=== PATIENT | male | born 1970 | race Caucasian/White ===

== ENCOUNTER 2020-05-26 07:44 | Outpatient (CLI) | payer OTHER, SELFPAY ==
--- NOTE | 2020-05-30 03:17 | SLEEP_ITS ---
Home Sleep Test DATE OF STUDY: 05/26/2020 ORDERING PHYSICIAN: Sherley Jordan MD. REASON FOR THE STUDY: Obstructive sleep apnea syndrome. HISTORY: This patient is a 49-year-old man, who is tired, dizzy, has memory issues, extreme mood swings, and serious lack of motivation. He has diagnosis of obstructive sleep apnea, and he has been on CPAP in the past. He occasionally awakens from sleep feeling short of breath. He never awakens at night with heartburn, belching, or coughing. He frequently snores occasionally, it is loud enough that others complain about it. He frequently has trouble sleeping if he has a cold. He occasionally gasps for breath at night. He rarely has breathing problems at night witnessed by others. He frequently sweats excessively at night. He occasionally notices his heart pounding or beating irregularly at night. He occasionally falls asleep during the day. He never falls asleep involuntarily or while driving. He does not fall asleep during physical effort. He does not have loss of muscle tone with strong emotion. He rarely has daytime difficulty due to excessive sleepiness, but he does have mood problems and this impacts his day-to-day life. He does not feel paralyzed on waking or falling asleep. He occasionally has vivid dreamlike scenes upon awakening or falling asleep. He rarely is afraid to go to sleep. He occasionally has nightmares. He occasionally remembers his dreams. He frequently has racing thoughts, feelings of sadness, depression, and anxiety. He rarely has muscular tension. He occasionally notices parts of his body jerking and he occasionally kicks at night. He rarely has crawling and aching feelings in his legs. He rarely has leg pain during the night. He does not have morning jaw pain. He frequently grinds his teeth at night. He rarely is bothered by pain during the day, never is awakened by pain at night. He frequently wakes up feeling stiff in the morning, rarely with sore or achy muscles. He rarely wakes up with pain in the neck and spine. He has headaches, palpitations, dizziness, fatigue, panic, memory problems, concentration difficulties, depression. Normal bedtime is 11 p.m., falling asleep sometimes quickly in 5 minutes, other times taking up to 1 hour. He typically wakes up 3-5 times at night, staying awake between 2 minutes and 30 minutes. When he wakes, he will go to the bathroom, sometimes turn on the television if he cannot fall back asleep. He wakes in the morning at 6:30 to 7:00 a.m. Weekends, he may stay up until 1 a.m. and wake later sometime between 7 and 8 a.m. He does drink alcohol mainly on the weekends. He does take naps. A short nap is not refreshing. He is drowsy in the morning for 3 hours or longer. MEDICAL COMORBIDITIES: Stroke, hyperlipidemia, hypothyroidism, history of obstructive sleep apnea syndrome previously treated with CPAP, pulmonary embolism, tachycardia. MEDICATIONS: 1. Levothyroxine 175 mcg daily. 2. Aspirin 325 mg daily. HABITS: Never smoked tobacco. Caffeine 3-5 servings a day. Alcohol 3-8 servings only on the weekends. No recreational drugs. The patient quit using CPAP over a year ago. His symptoms worsened significantly and he decided he wanted to be treated again due to recurrence of symptoms including increased daytime sleepiness, fatigue, snoring, dry mouth, and nocturia, but he had to be retested because there had been a lapse in the use of CPAP, so we had to start from the beginning. DESCRIPTION OF THE STUDY: On the [place] Sleepiness Scale, his score is 8. This was conducted as an unattended type III portable home sleep test using 4-channel monitoring including respiratory effort channel, snoring channel, oxygen saturation channel, and
== END 2020-05-26 07:45 | disposition home or self-care (01) ==
LOC: ANHCSM 07:44
PROVIDERS: PCP Family Medicine; Visit Provider Internal Medicine Critical Care Medicine
DX: G47.33 Obstructive sleep apnea (adult) (pediatric) (principal)
CPT/HCPCS: 95806

== ENCOUNTER 2020-07-31 20:39 | Inpatient (IN) | payer OTHER, SELFPAY ==
--- NOTE | ~2020-07-31 | US_ITS ---
EXAMINATION: US right upper quadrant EXAM DATE: 08/01/2020 11:17 INDICATION: Elevated liver enzymes. TECHNIQUE: Multiple grayscale and Doppler images of the abdomen right upper quadrant were obtained (tom y a technologist who performed the scan) and subsequently reviewed. There is no prior study for rosie burnett. FINDINGS: The pancreatic head and body are normal in appearance. The pancreatic tail is not visualized. The l iver has normal echogenicity and contour. There are no focal liver lesions identified. There is no evidence of intrahepatic biliary duct dilation. Portal venous flow was seen in the hepatopedal, nor mal direction and has normal Doppler waveform. No right-sided hydronephrosis. Common bile duct measures 3 mm, which is normal. The gallbladder wall is normal in thickness, with ex pected amount of distention. No sonographic evidence of pericholecystic fluid. There is no cholelit hiases. Technologist performing exam reports patient did not demonstrate sonographic Barrientos's sign. Please note that this sign is less reliable in patients who have received pain medication. IMPRESSION: 1. Unremarkable abdominal ultrasound exam. Reviewed, dictated and finalized at location A. RDS MANAGER
--- NOTE | ~2020-07-31 | US_ITS ---
EXAMINATION: US carotid duplex BI EXAM DATE: 08/01/2020 11:16 INDICATION: Stroke, vertigo. TECHNIQUE: Grayscale, color and pulsed Doppler images of the cervical carotid arteries were obtained . The degree of vessel stenosis is placed in one of the following categories: normal, <50% stenosis, 50-69% stenosis, >=70% stenosis but less than near-occlusion, near-occlusion, or occlusion. Note that percent stenosis relative to normal distal artery lumen diameter is indirectly measured from velocit y measurements as described by Kaz, et al. Radiology 2003; 229:340-346. Comparison is made to prior examination from 07/03/2019. FINDINGS: RIGHT SIDE: Right common carotid artery peak systolic velocity (PSV in cm/s): 83 Right bulb/internal carotid artery peak systolic velocity (PSV in cm/s): 74 Right internal carotid artery end diastolic velocity (EDV in cm/s): 37 Right ICA/CCA peak systolic ratio: 0.9 Right external carotid artery peak systolic velocity (PSV in cm/s): 113 Right vertebral artery antegrade flow: yes There is no focal plaque identified. LEFT SIDE: Left common carotid artery peak systolic velocity (PSV in cm/s): 122 Left bulb/internal carotid artery peak systolic velocity (PSV in cm/s): 104 Left internal carotid artery end diastolic velocity (EDV in cm/s): 0.9 Left ICA/CCA peak systolic ratio: 112 Left external carotid artery peak systolic velocity (PSV in cm/s): 46 Left vertebral artery antegrade flow: yes There is no focal plaque identified. IMPRESSION: 1. Normal right internal carotid artery. 2. Normal left internal carotid artery. Reviewed, dictated and finalized at location A. ITECTURE DEPARTMENT CHAIR
--- NOTE | ~2020-07-31 | CT_ITS ---
EXAMINATION: CT cervical spine wo con DATE: 07/31/2020 21:31 INDICATION: Weakness post fall TECHNIQUE: Computed tomography (CT) of the cervical spine was performed without intravenous contrast. Automated exposure control and iterative reconstruction technique were employed. The dose-length pro duct was 592.25 mGy-cm. COMPARISON: None FINDINGS: Straightening of the normal cervical lordosis. Vertebral body heights are normal. No fracture. Disc h eights are normal. Minimal to mild uncovertebral osteoarthritis throughout the cervical spine most pr ominent at C3-C4. Mild bilateral facet osteoarthritis at C2-C3 with minimal facet osteoarthritis in t he more caudal cervical and upper thoracic spine. No central canal or neural foraminal stenosis. Cerv ical soft tissues are unremarkable. Visualized airway and apices of the lungs are clear. IMPRESSION: 1. Minimal cervical spondylosis. No acute osseous abnormality. Reviewed, dictated and finalized at [facility]. NEL ACCOUNT MANAGER
--- NOTE | ~2020-07-31 | MR_ITS ---
EXAMINATION: MR brain/brain stem wo/w con EXAM DATE: 08/01/2020 10:38 INDICATION: Upper extremity weakness. Stroke. Fall and memory loss. TECHNIQUE: Magnetic resonance imaging (MRI) of the brain/brain stem obtained without contrast. Sagit maureen T1, axial diffusion, gradient echo (T2*), T1, T2, FLAIR sequences obtained. Patient was then inj ected with 20 cc intravenous Multihance contrast. Axial and coronal postcontrast T1 weighted sequence s obtained. Comparison is made to prior examination from 06/28/2019. FINDINGS: There is punctate old left cerebellar infarction. There are no areas of restricted diffusio n to suggest acute infarction. Vague mild periventricular T2 hyperintensity most likely mild microang iopathy, with some dilated perivascular spaces unchanged There is no acute hemorrhage seen on the T2* , a hemosiderin sensitive sequence. No intraparenchymal brain mass. The ventricles are normal in siz e. There are no extra-axial collections. Flow voids are seen in the cerebral arteries on the T2-betsy ghted sequences consistent with their expected patency. The orbits are unremarkable. Soft tissue is unremarkable. IMPRESSION: 1. No acute intracranial findings. 2. Punctate old left cerebellar infarction. Reviewed, dictated and finalized at location A. RACT RECRUITER
--- NOTE | ~2020-07-31 | CT_ITS ---
EXAMINATION: CT brain wo con DATE: 07/31/2020 21:31 INDICATION: Memory loss post fall with head trauma. TECHNIQUE: Computed tomography (CT) of the head was performed without intravenous contrast. Sagittal and coronal reconstructions were performed. The mA was adjusted according to patient size. Iterative reconstruction technique was employed. The dose-length product was 681.00 mGy-cm. COMPARISON: head CT dated 02/06/2019 and brain MR dated 06/28/2019 FINDINGS: No fracture. Small old left cerebellar infarct. No acute intracranial hemorrhage, acute infarction or abnormal extra axial fluid collection. Ventricles are normal and symmetric. No mass/mass effect. Sma ll amount of bubbly mucus in the right sphenoid sinus. The orbits and mastoid air cells are normal. IMPRESSION: 1. No fracture or acute intracranial process. 2. Small lacunar infarct at the left cerebellum. Reviewed, dictated and finalized at [facility]. ECT ENGINEERING MANAGER
[2020-07-31 20:44] VITALS: BP 129/65; PULSE 104; RESP 18; TEMP 36.6; O2SAT 100
[2020-07-31 21:21] LABS: Basophils Absolute Auto 0.1 K/mm3 (0.0-0.1); Eosinophils Absolute Auto 0.3 K/mm3 (0-0.3); Eosinophils Percent Auto 2.7 % (0-4.4); Hematocrit 42.5 % (42.0-52.0); Hemoglobin 15.3 g/dL (14.0-18.0); Immature Granulocyte Absolute 0.14 K/mm3 (0.00-0.031); Immature Granulocyte Percent A 1.3 % (0-0.5); Lymphocytes Absolute Auto 2.12 K/mm3 (0.9-3.2); Mean Corpuscular Hemoglobin 33.8 pg (26-34); Mean Corpuscular Volume 93.8 fl (80-100); Mean Platelet Volume 9.2 fl (7.4-10.4); Monocytes Absolute Auto 0.7 K/mm3 (0.1-0.6); Monocytes Percent Auto 5.8 % (2.6-8.5); Neutrophils Absolute Auto 7.8 K/mm3 (1.3-6.7); Neutrophils Percent Auto 70.2 % (45.5-73.1); Platelet Count Result 257 k/mm3 (150-375); Red Blood Count 4.53 M/mm3 (4.6-6.20); Red Cell Distribution Width 12.5 % (11.5-14.5); White Blood Count 11.1 K/mm3 (4.5-10.0)
[2020-07-31 21:34] LABS: Anion Gap 12 mmol/L (8-16); Blood Urea Nitrogen 23 mg/dL (9-20); Calcium 9.5 mg/dL (8.4-10.2); Carbon Dioxide 23 mmol/L (22-30); Chloride 105 mmol/L (98-107); Estimated CRCL calculation 94 ml/min; Estimated Glomerular Filt Rate > 60; Glucose 110 mg/dL (75-110); Potassium 4.1 mmol/L (3.4-5.0); Sodium 140 mmol/L (137-145)
[2020-07-31 21:35] LABS: Alanine Aminotransferase 214 U/L (4-50); Albumin Level 4.3 g/dL (3.5-5.1); Alkaline Phosphatase 59 U/L (38-126); Bilirubin,Total 0.5 mg/dL (0.2-1.3)
--- NOTE | 2020-07-31 21:40 | ED.GENADULT ---
HPI - General Adult General Chief complaint: Weakness Stated complaint: weakness in extremities SP fall Time Seen by Provider: 07/31/20 21:04 Source: patient Mode of arrival: ambulatory Limitations: no limitations History of Present Illness HPI narrative: Patient came to the emergency room complaining of head injury and general weakness and trouble lifting upper extremity and legs started 4 days ago after falling in the bathtub and hitting his head. Patient was drinking alcohol at that time, also was vomiting. Patient is not sure if he blacked out or not. Patient lives alone. Patient been drinking alcohol for the last 30 years, little bit more over the last few weeks. Patient brought to the emergency room by a friend of his. Related Data Home Medications Medication Instructions Recorded Confirmed fluoxetine mg 07/31/20 levothyroxine 07/31/20 Allergies Allergy/AdvReac Type Severity Reaction Status Date / Time No Known Allergies Allergy Verified 07/31/20 20:48 Review of Systems Review of Systems: Narrative: CONSTITUTIONAL: Denies fever, chills, or sweats. EYES: Denies visual changes, redness, or discharge. ENT: Denies rhinorrhea, congestion, sore throat, or otalgia. CARDIOVASCULAR: Denies chest pain, palpitations, or edema. RESPIRATORY: Denies cough or dyspnea. GASTROINTESTINAL: Denies abdominal pain, nausea, vomiting, or diarrhea. GENITOURINARY: Denies dysuria or hematuria. SKIN: Denies rash or itching. MUSCULOSKELETAL: Denies back pain, joint pain, or myalgia. NEUROLOGIC: Complaining of headache and general weakness PSYCHIATRIC: Denies anxiety or depression. PMFSH Social History Social History Gender identity (if verbalized by the patient): Male Exam Narrative: Exam Narrative: General appearance: Well-developed, well-nourished Skin: Normal color Head: Normocephalic, nontraumatic Eyes: Clear conjunctiva ENT: Oropharynx normal, ears normal, nose normal Neck: Supple, nontender Chest and respiratory: Airway patent, no respiratory distress, no accessory muscle use Heart: Regular rate/rhythm Abdomen: Soft, nontender, no organomegaly, quiet bowel sounds Vascular: Normal peripheral pulses, normal capillary refill. 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 Patient is able to get out of bed and walk around in the emergency room with steady gait, without any abnormality. Course Course Emergency Course: Stable Vital Signs Vital signs: Vital Signs Temperature 36.6 C 07/31/20 20:44 Pulse Rate 104 H 07/31/20 20:44 Respiratory Rate 18 07/31/20 20:44 Blood Pressure 129/65 07/31/20 20:44 Pulse Oximetry 100 07/31/20 20:44 Temperature 36.6 C 07/31/20 20:44 Pulse Rate 104 H 07/31/20 20:44 Respiratory Rate 18 07/31/20 20:44 Blood Pressure 129/65 07/31/20 20:44 Pulse Oximetry 100 07/31/20 20:44 Medical Decision Making MDM Narrative Medical decision making narrative: Patient presents with closed head injury, CT head, CT cervical spine ordered. Labs, UA, ordered. Further plan to follow Differential Diagnosis Differential Diagnosis: Closed head injury, cervical spine injury, electrolyte imbalance, Vital Signs Vital Signs: Vital Signs Temperature 36.6 C 07/31/20 20:44 Pulse Rate 104 H 07/31/20 20:44 Respiratory Rate 18 07/31/20 20:44 Blood Pressure 129/65 07/31/20 20:44 Pulse Oximetry 100 07/31/20 20:44 Temperature 36.6 C 07/31/20 20:44 Pulse Rate 104 H 07/31/20 20:44 Respiratory Rate 18 07/31/20 20:44 Blood Pressure 129/
[2020-07-31 21:47] LABS: Aspartate Amino Transferase 828 U/L (17-59)
--- NOTE | 2020-07-31 22:05 | PC.NURSE ---
Ask patient for urine. patient states he is trying but he dehydrated and will try again.
[2020-07-31 22:22] LABS: Creatine Kinase > 16000 U/L (55-170)
[2020-07-31 22:38] LABS: Add Urine Microscopic? YES; Appearance Urine Cloudy (Clear); Bilirubin Urine Negative (Negative); Blood Urine 3+ (Negative); Color Urine Yellow (Yellow); Glucose Urine UA Negative (Negative); Ketones Urine Negative (Negative); Leukocyte Esterase Ur Negative LEU/UL (Negative); Mucus Urine Few /lpf; Nitrate Urine Negative (Negative); Protein Urine 2+ mg/dL (Negative); RBC Urine 0-2 /hpf (0-2); Squamous Epithelial Cell Urine Few /hpf (Few); Urobilinogen Urine Negative mg/dL (<2.0)
[2020-07-31] MEDS: SODIUM CHLORIDE 0.9% IV 1,000 ML 999 ML IV CONT (22:38)
[2020-07-31 22:48] LABS: Amphetamine Screen Urine Negative (Negative); Barbiturate Screen Urine Negative (Negative); Benzodiazepines Screen Urine Negative (Negative); Cannabinoid Screen Urine Negative (Negative); Cocaine Screen Urine Negative (Negative); Methadone Screen Urine Negative (Negative); Opiate Screen Urine Negative (Negative); Phencyclidine Screen Urine Negative (Negative)
[2020-07-31 23:14] LABS: Ethanol < 10 mg/dL (<10)
[2020-07-31 23:21] VITALS: BP 148/120; PULSE 81; RESP 18; TEMP 36.6; O2SAT 100
--- NOTE | 2020-07-31 23:36 | PC.NURSE ---
Per Dr Clint pang to run thiamine, folic acid and vitamin infusion as a bolus.
[2020-07-31 23:43] VITALS: BP 127/91; PULSE 78; RESP 16; TEMP 36.7; O2SAT 99; BMI 28.4
--- NOTE | 2020-07-31 23:51 | PM.IMHP ---
H&P: HPI History of Present Illness Date/Time: 07/31/20 23:51 Chief complaint: Rhado, elevated liver enzyme, Tongu puncture wound Narrative: Ignacio Gomez is a 49 year old male has a history of hypothyroidism and anxiety with depression. The patient tells me that he drinks socially and is very sociable but would not quantify how much she drinks. Patient stated that he did drink some alcohol this weekend but does not recall how much drinks. Patient's tox screen was negative. Patient's total creatinine kinase was greater than 16,000. Patient came to the emergency room complaining of a head injury in generalized weakness. Patient had trouble lifting his upper extremity over his head. This started about 4 days ago when he fell in the bathtub in his head. Patient was not sure if he blacked out or not over the weekend. Patient lives home alone. The patient was brought to the emergency room by his friend. Minimal cervical spondylosis. CT of the head was read as no fracture or acute intracranial process. Small lacunar infarct at the left cerebellum. Patient was given IV bolus to he was given Ativan in the emergency room. Patient was placed as inpatient status. Date of service 07/31/2020 Review of Systems Review of Systems: All systems reviewed & are unremarkable except as noted in HPI and below Constitutional: Constitutional: Reports as per HPI and Reports no additional constitutional complaints Eyes: Eyes: Reports as per HPI and Reports no additional eye complaints ENT: Reports system reviewed and no additional complaints, except as documented and Reports Normal hearing present Cardiovascular: Cardiovascular: Reports no additional cardiovascular complaints Respiratory: Respiratory: Reports no additional respiratory complaints and Reports no additional respiratory complaints Gastrointestinal: Gastrointestinal: Reports as per HPI and Reports no additional gastrointestinal complaints Musculoskeletal: Musculoskeletal: Reports no additional musculoskeletal complaints Integumentary/Breasts: Skin/Breast: Reports system reviewed and no additional complaints, except as docu and Reports as per HPI Neurologic: Reports system reviewed and no additional complaints, except as documented, Reports as per HPI and Reports Normal hearing present Psychiatric: Psychiatric: Reports no additional psychiatric complaints and Reports as per HPI Endocrine: Endocrine: Reports no additional endocrine complaints Hematologic/Lymphatic: Hematologic/Lymphatic: Reports no additional hematologic/lymphatic complaints Allergic/Immunologic: Allergic/Immunologic: Reports no additional allergic/immunologic complaints COUNTS INCLUDE 234 BEDS AT THE [facility] Past Medical History Medical History (Updated 08/01/20 @ 00:08 by Muna Dumont NP) Anxiety and depression Surgical History Surgical History (Updated 08/01/20 @ 00:08 by Muna Dumont NP) History of open reduction and internal fixation (ORIF) procedure Left femur at the age of 6 Family History Family History Mother Diabetes mellitus Acute myocardial infarction Father Acute myocardial infarction Social History Social History (Updated 08/01/20 @ 00:10 by Muna Dumont NP) Social History: The patient is and he has 2 children. One is 16 in the other 1 is 20. 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 He states that he drinks socially and is very sociable. He could not quantify how much she drinks and when he drinks. He stated that he use marijuana maybe 6 times in his whole life time. He denies using illicit drugs. He does not have a durable power prosecuting attorney for healthcare. He is a full code. He isn't nonsmoker. Smoking status: Never smoker Gender identity (if verbalized by the patient): Male Meds Home Medications and Allergies Home Medications Medication Instructions Recorded Confirmed Type fl
[2020-08-01] VITALS (8 sets, daily range): BP systolic 134–141; BP diastolic 77–100; PULSE 76–93; RESP 11–18; TEMP 36.3–36.7; O2SAT 98–100
--- NOTE | 2020-08-01 | ECHO_ITS ---
Patient Info Name: Ignacio Gomez Age: 49 years : 1970 Gender: Male Ht: 75 in Wt: 232 lbs BSA: 2.38 m2 HR: 75 bpm BP: 134 / 81 mmHg Heart Rhythm: Sinus Rhythm Technical Quality: Good Exam Date: 08/01/2020 11:26 AM Exam Location: [facility] Patient Status: Inpatient Admit Date: 07/31/2020 Staff Ordering Physician: Muna Dumont NP Resident Associate: Fabricio Perry RDCS Attending Provider: Murphy Morales MD Referring Physician: Tim BURGOS; Exam Type: CA echo doppler w bubble study Study Info Indications 436.0 - CVA Complete two-dimensional, color flow and Doppler transthoracic echocardiogram is performed with agitated saline. Contrast/Agitated Saline Contrast/Ag. Saline: Agitated Saline Amount: 18.00 ml Administered By: Chelsy Mcmahon RN Existing IV Access: Yes History/Risk Factors CVA; rhabdomyolosis; HTN. Summary 1. Normal left and right ventricular systolic function. 2. No significant valvular abnormality. 3. No evidence of intracardiac shunting by agitated saline contrast injection. Left Ventricular Outflow Tract Name Value Normal LVOT 2D LVOT Diameter 2.2 cm LVOT Doppler LVOT Peak Gradient 4 mmHg LVOT Mean Gradient 2 mmHg LVOT VTI 20 cm LVOT VTI/AV VTI Ratio 0.7 LVOT Stroke Volume 76 ml LVOT CO 6.1 l/min LVOT CI 2.6 l/min/m2 Mitral Valve Name Value Normal MV Doppler MV Decel Archuleta 284 cm/s2 MV PHT 62 ms MV Area (PHT) 3.6 cm2 4.0-5.0 MV Diastolic Function MV E Peak Velocity 60 cm/s MV A Peak Velocity 57 cm/s MV E/A 1.1 MV Decel Time 213 ms MV Annular TDI MV E/e' (Septal) 7.9 <=8.0 MV E/e' (Lateral) 5.2 <=8.0 MV E/e' (Average) 6.5 Tricuspid Valve Name Value Normal TV Regurgitation Doppler TR Peak Velocity 235 cm/s TR Peak Gradient 22 mmHg Estimated PAP/RSVP
[2020-08-01] MEDS: SODIUM CHLORIDE 0.9% IV 1,000 ML 200 ML IV CONT ×4 (01:00→20:19)
[2020-08-01 02:33] LABS: Creatine Kinase > 16000 U/L (55-170)
[2020-08-01 02:37] LABS: Hepatitis B Surface Antigen Negative (Negative)
[2020-08-01 02:42] LABS: HAV RESULT Negative (Negative); Hepatitis B Core IgM Result Negative (Negative)
[2020-08-01 02:54] LABS: Hepatitis C Virus Antibody Negative (Negative)
[2020-08-01 05:26] LABS: Basophils Absolute Auto 0.1 K/mm3 (0.0-0.1); Basophils Percent Auto 1.3 % (0.2-1.2); Eosinophils Absolute Auto 0.3 K/mm3 (0-0.3); Eosinophils Percent Auto 3.7 % (0-4.4); Hematocrit 36.5 % (42.0-52.0); Hemoglobin 12.6 g/dL (14.0-18.0); Immature Granulocyte Absolute 0.14 K/mm3 (0.00-0.031); Immature Granulocyte Percent A 1.5 % (0-0.5); Lymphocytes Absolute Auto 1.89 K/mm3 (0.9-3.2); Lymphocytes Percent Auto 20.9 % (18.3-44.2); Mean Corpuscular HGB Conc 34.5 g/dl (32-36); Mean Corpuscular Hemoglobin 32.3 pg (26-34); Mean Corpuscular Volume 93.6 fl (80-100); Mean Platelet Volume 9.2 fl (7.4-10.4); Monocytes Absolute Auto 0.6 K/mm3 (0.1-0.6); Neutrophils Absolute Auto 5.9 K/mm3 (1.3-6.7); Neutrophils Percent Auto 65.6 % (45.5-73.1); Platelet Count Result 238 k/mm3 (150-375); Red Cell Distribution Width 12.7 % (11.5-14.5)
[2020-08-01] MEDS: MORPHINE SULFATE (*CRX) 2 MG/ML INJ IV PUSH (05:29)
[2020-08-01] MEDS: AMOXICILLIN/CLAVULANATE K 875-125 MG TAB 1 TABLET PO ×2 (05:30→16:26)
[2020-08-01] MEDS: ASPIRIN 325 MG ENTERIC TABLET PO (05:30)
[2020-08-01 05:32] LABS: Potassium 3.8 mmol/L (3.4-5.0)
[2020-08-01 05:43] LABS: Alanine Aminotransferase 185 U/L (4-50); Albumin Level 3.4 g/dL (3.5-5.1); Alkaline Phosphatase 49 U/L (38-126); Anion Gap 3 mmol/L (8-16); Aspartate Amino Transferase 700 U/L (17-59); Bilirubin,Total 0.7 mg/dL (0.2-1.3); Blood Urea Nitrogen 19 mg/dL (9-20); Calcium 8.2 mg/dL (8.4-10.2); Carbon Dioxide 28 mmol/L (22-30); Chloride 107 mmol/L (98-107); Estimated CRCL calculation 94 ml/min; Estimated Glomerular Filt Rate > 60; Glucose 104 mg/dL (75-110); Magnesium 2.1 mg/dL (1.6-2.3); Sodium 138 mmol/L (137-145)
[2020-08-01 06:06] LABS: Creatine Kinase > 16000 U/L (55-170)
--- NOTE | 2020-08-01 11:08 | PM.IMPN ---
Progress Note: A&P Assessment and Plan (1) Rhabdomyolysis: Qualifiers: Encounter type: subsequent encounter Rhabdomyolysis type: traumatic Qualified Code(s): T79.6XXD - Traumatic ischemia of muscle, subsequent encounter Code(s): M62.82 - Rhabdomyolysis Status: Acute Assessment and Plan: Patient fell 07/27 and details are unclear 2/2 ETOH. He has mostly been weak in bed since that time. Suspect rhabdo secondary to trauma/fall, unclear how long he was down. Renal function is adequate, will continue to monitor. Continue IV fluids and monitor CK. CK still > 16,000. (2) CVA (cerebral vascular accident): Qualifiers: CVA mechanism: unspecified Qualified Code(s): I63.9 - Cerebral infarction, unspecified Code(s): I63.9 - Cerebral infarction, unspecified Status: Acute Assessment and Plan: Punctate old left cerebellar infarction is noted on CT and MRI brain. He was unaware he had a stroke at any point. Carotid ultrasound is normal, echo is pending. Patient's symmetrical bilateral upper and lower extremity weakness is resolved this morning and likely related to rhabdo. Neurology was consulted - appreciate input. Will obtain fasting lipid panel in AM. Would consider starting statin therapy for stroke risk reduction after resolution of acute rhabdomyolysis; continue ASA. (3) Puncture wound of tongue: Qualifiers: Encounter type: sequela Qualified Code(s): S01.532S - Puncture wound without foreign body of oral cavity, sequela Code(s): S01.532A - Puncture wound without foreign body of oral cavity, initial encounter Status: Acute Assessment and Plan: Patient bit his tongue when he fell several days ago. It is swollen and sore. Continue with Augmentin. (4) Anxiety and depression: Code(s): F41.9 - Anxiety disorder, unspecified; F32.9 - Major depressive disorder, single episode, unspecified Status: Chronic Assessment and Plan: Stable. Continue home medications. (5) Elevated liver enzymes: Code(s): R74.8 - Abnormal levels of other serum enzymes Status: Acute Assessment and Plan: Suspect stress reaction secondary to rhabdo. Hepatitis panel is negative. RUQ US is negative. Will monitor CMP. (6) Hypothyroidism: Qualifiers: Hypothyroidism type: unspecified Qualified Code(s): E03.9 - Hypothyroidism, unspecified Code(s): E03.9 - Hypothyroidism, unspecified Status: Chronic Assessment and Plan: Continue his home levothyroxine. TSH is elevated, could be in the setting of acute ailments above. Recommend repeat TSH outpatient and follow up with PCP prior to making any medication adjustments. Subjective Date/time seen: 08/01/20 1000 Interval history: Ms. Gomez is a 49yo M admitted for rhabdomyolysis. He fell Friday 07/27 while in the shower and thinks he bit his tongue when he fell. He notes the details are hazy because he had been drinking that night. He does not remember where/when he woke up. He does tell me he has basically been weak and in bed since that incident. He tells me he was barely able to lift his arms above his head and his legs off the bed last night in ER, but the weakness was the same bilaterally. This has resolved this morning after IV fluids and he is moving all extremities without issues. He denies any history of seizures or heavy lifting/vigorous exercise. No chest pain, shortness of breath, nausea or vomiting. Mostly only complains of tongue pain. He admits he is a bit anxious and is a bit of a worrier when it comes to medical issues. Review of Systems Review of Systems: All systems reviewed & are unremarkable exce
[2020-08-01] MEDS: ACETAMINOPHEN 325 MG TABLET 650 MG PO (12:26)
[2020-08-01] MEDS: LEVOTHYROXINE SODIUM 150 MCG TABLET PO (12:27)
[2020-08-01] MEDS: FLUoxetine HCL 20 MG CAPSULE PO (12:27)
[2020-08-01] MEDS: THIAMINE HCL 100 MG TABLET PO (12:27)
[2020-08-01] MEDS: FOLIC ACID 1 MG TABLET PO (12:27)
[2020-08-01 13:18] LABS: Free T4 Free Thyroxine Reflex 1.38 ng/dL (0.78-2.19)
[2020-08-01] MEDS: ENOXAPARIN 40 MG/0.4 ML SYRINGE SUB-Q (13:45)
[2020-08-01] MEDS: FAMOTIDINE 20 MG TABLET PO ×2 (13:45→20:16)
[2020-08-01 14:04] LABS: Total Triiodothyronine (T3) 0.92 NG/ML (0.97-1.69)
[2020-08-01] MEDS: HYDROcodone/acetaminophen (*CRX) 5-325 MG TABLET 1 TAB PO ×2 (20:16→23:55)
[2020-08-02] MEDS: SODIUM CHLORIDE 0.9% IV 1,000 ML 200 ML IV CONT ×2 (01:20→05:34)
[2020-08-02] MEDS: HYDROcodone/acetaminophen (*CRX) 5-325 MG TABLET 1 TAB PO ×5 (05:31→22:14)
[2020-08-02] MEDS: LEVOTHYROXINE SODIUM 150 MCG TABLET PO (05:31)
[2020-08-02 05:56] LABS: Basophils Absolute Auto 0.1 K/mm3 (0.0-0.1); Basophils Percent Auto 1.2 % (0.2-1.2); Eosinophils Absolute Auto 0.3 K/mm3 (0-0.3); Eosinophils Percent Auto 4.2 % (0-4.4); Hematocrit 37.1 % (42.0-52.0); Hemoglobin 12.8 g/dL (14.0-18.0); Immature Granulocyte Absolute 0.14 K/mm3 (0.00-0.031); Lymphocytes Absolute Auto 1.75 K/mm3 (0.9-3.2); Lymphocytes Percent Auto 25.2 % (18.3-44.2); Mean Corpuscular HGB Conc 34.5 g/dl (32-36); Mean Corpuscular Hemoglobin 33.1 pg (26-34); Mean Corpuscular Volume 95.9 fl (80-100); Mean Platelet Volume 8.9 fl (7.4-10.4); Monocytes Absolute Auto 0.4 K/mm3 (0.1-0.6); Monocytes Percent Auto 5.8 % (2.6-8.5); Neutrophils Absolute Auto 4.3 K/mm3 (1.3-6.7); Neutrophils Percent Auto 61.6 % (45.5-73.1); Platelet Count Result 213 k/mm3 (150-375); Red Blood Count 3.87 M/mm3 (4.6-6.20); Red Cell Distribution Width 12.5 % (11.5-14.5); White Blood Count 6.9 K/mm3 (4.5-10.0)
[2020-08-02 06:00] VITALS: BP 146/81; PULSE 78; RESP 16; TEMP 36.7; O2SAT 98
[2020-08-02 06:23] LABS: LDL Cholesterol Direct 96 mg/dL
[2020-08-02 06:50] LABS: Anion Gap 3 mmol/L (8-16); Blood Urea Nitrogen 11 mg/dL (9-20); Calcium 8.1 mg/dL (8.4-10.2); Carbon Dioxide 30 mmol/L (22-30); Chloride 106 mmol/L (98-107); Cholesterol 150 mg/dL (0-200); Creatine Kinase > 16000 U/L (55-170); Estimated CRCL calculation 104 ml/min; Estimated Glomerular Filt Rate > 60; Glucose 97 mg/dL (75-110); HDL Direct 29 mg/dL; Magnesium 2.1 mg/dL (1.6-2.3); Potassium 3.9 mmol/L (3.4-5.0); Sodium 139 mmol/L (137-145); Triglycerides 149 mg/dL (<150)
[2020-08-02 08:14] LABS: Alanine Aminotransferase 167 U/L (4-50); Albumin Level 3.2 g/dL (3.5-5.1); Alkaline Phosphatase 49 U/L (38-126); Aspartate Amino Transferase 511 U/L (17-59); Bilirubin,Total 0.6 mg/dL (0.2-1.3)
[2020-08-02] MEDS: AMOXICILLIN/CLAVULANATE K 875-125 MG TAB 1 TABLET PO ×2 (08:20→16:46)
[2020-08-02] MEDS: FOLIC ACID 1 MG TABLET PO (08:21)
[2020-08-02] MEDS: ASPIRIN 325 MG ENTERIC TABLET PO (08:21)
[2020-08-02] MEDS: ENOXAPARIN 40 MG/0.4 ML SYRINGE SUB-Q (08:21)
[2020-08-02] MEDS: FAMOTIDINE 20 MG TABLET PO ×2 (08:21→20:52)
[2020-08-02] MEDS: FLUoxetine HCL 20 MG CAPSULE PO (08:21)
[2020-08-02] MEDS: THIAMINE HCL 100 MG TABLET PO (08:21)
[2020-08-02] MEDS: SODIUM BICARBONATE 8.4% 150 MEQ in DEXTROSE 5% 1,000 ML 950 ML IV CONT ×2 (09:26→17:28)
--- NOTE | 2020-08-02 11:26 | WPDNEURCNPN ---
Assessment and Plan Assessment and plan (1) Hypothyroidism: Qualifiers: Hypothyroidism type: unspecified Qualified Code(s): E03.9 - Hypothyroidism, unspecified Code(s): E03.9 - Hypothyroidism, unspecified Status: Chronic (2) Anxiety and depression: Code(s): F41.9 - Anxiety disorder, unspecified; F32.9 - Major depressive disorder, single episode, unspecified Status: Chronic (3) Rhabdomyolysis: Qualifiers: Encounter type: subsequent encounter Rhabdomyolysis type: traumatic Qualified Code(s): T79.6XXD - Traumatic ischemia of muscle, subsequent encounter Code(s): M62.82 - Rhabdomyolysis Status: Acute (4) Elevated liver enzymes: Code(s): R74.8 - Abnormal levels of other serum enzymes Status: Acute (5) Closed head injury: Qualifiers: Encounter type: initial encounter Qualified Code(s): S09.90XA - Unspecified injury of head, initial encounter Code(s): S09.90XA - Unspecified injury of head, initial encounter Status: Acute (6) Puncture wound of tongue: Qualifiers: Encounter type: sequela Qualified Code(s): S01.532S - Puncture wound without foreign body of oral cavity, sequela Code(s): S01.532A - Puncture wound without foreign body of oral cavity, initial encounter Status: Acute Additional Plan will need to have the serial checks of the CPK in addition to the x-rays of the shoulder and then accordingly Consult date: 08/02/20 Time Seen: 11:15 HPI: Ignacio Gomez is a 49 year old maleAdmitted to the hospital with ongoing history of 1. Alcoholism 2. Hypothyroidism 3. Anxiety with depression. as per the information available, he drinks socially but would not qualify how much, at the time of admission to the ER his CPK was 16,000 came complaining of head injury along with generalized weakness and trouble in lifting his upper extremity oveer head, this all started about 4 days ago when he fell in the bathtub he was not sure weather he blacked out or not ,he lives alone at home and was brought to the ER by his friend .evaluation documented hemoglobin 12.6 normal electrolytes calcium 8.2 AST 700 ALT 185 CK more than 16,000 TSH 9.54 with T4 of 1.38 and T3 of 0.92 hepatitis negative serology for a B's and c brain MRI with punctate old left cerebellar infarction, carotid Doppler studies negative, echocardiogram normal, CT scan of cervical spine with only minimal cervical spondylosis, no fracture or dislocation ,upper quadrant ultrasound of abdomen negative Review of Systems Review of Systems: All systems reviewed & are unremarkable except as noted in HPI and below PMFSH Past Medical History Medical History Anxiety and depression Hypothyroidism Surgical History Surgical History History of open reduction and internal fixation (ORIF) procedure Left femur at the age of 6 Family History Family History Mother Diabetes mellitus Acute myocardial infarction Thyroid cancer Father Acute myocardial infarction Bladder cancer Social History Social History Social History: The patient is and he has 2 children. One is 16 in the other 1 is 20. 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 He states that he drinks socially and is very sociable. He could not quantify how much she drinks and when he drinks. He stated that he use marijuana maybe 6 times in his whole life time. He denies using illicit drugs. He does not have a durable power erisa attorney for healthcare. He is a full code. He isn't nonsmoker. Smoking status: Never smoker Alcohol intake: current Drinks per week: 30 Substance use: never Substance use type: does not use Gender identity (if verbalized by the skylar
--- NOTE | 2020-08-02 12:53 | PM.IMPN ---
Progress Note: A&P Assessment and Plan (1) Rhabdomyolysis: Qualifiers: Encounter type: subsequent encounter Rhabdomyolysis type: traumatic Qualified Code(s): T79.6XXD - Traumatic ischemia of muscle, subsequent encounter Code(s): M62.82 - Rhabdomyolysis Status: Acute Assessment and Plan: Patient fell 07/27 and details are unclear 2/2 ETOH. Suspect rhabdo secondary to trauma/fall, unclear how long he was down. He had mostly been weak in bed since that time up until admission. He is doing well ambulating the halls this afternoon. Renal function is adequate, will continue to monitor. Continue IV fluids (switch to bicarb); monitor BMP and CK daily. CK still > 16,000 today. (2) CVA (cerebral vascular accident): Qualifiers: CVA mechanism: unspecified Qualified Code(s): I63.9 - Cerebral infarction, unspecified Code(s): I63.9 - Cerebral infarction, unspecified Status: Acute Assessment and Plan: Punctate old left cerebellar infarction is noted on CT and MRI brain. He was unaware he had a stroke at any point. Carotid ultrasound is normal, echo is pending. Patient's symmetrical bilateral upper and lower extremity weakness is resolved this morning and likely related to rhabdo. Neurology was consulted - appreciate input. Fasting lipid panel within normal limits. Would consider starting statin therapy for stroke risk reduction after resolution of acute rhabdomyolysis; continue ASA. (3) Puncture wound of tongue: Qualifiers: Encounter type: sequela Qualified Code(s): S01.532S - Puncture wound without foreign body of oral cavity, sequela Code(s): S01.532A - Puncture wound without foreign body of oral cavity, initial encounter Status: Acute Assessment and Plan: Patient bit his tongue when he fell several days ago. It is swollen and sore. Continue with Augmentin. (4) Anxiety and depression: Code(s): F41.9 - Anxiety disorder, unspecified; F32.9 - Major depressive disorder, single episode, unspecified Status: Chronic Assessment and Plan: Stable. Continue home medications. (5) Elevated liver enzymes: Code(s): R74.8 - Abnormal levels of other serum enzymes Status: Acute Assessment and Plan: Suspect stress reaction secondary to rhabdo. Hepatitis panel is negative. RUQ US is negative. Will monitor CMP. Trending down today. (6) Hypothyroidism: Qualifiers: Hypothyroidism type: unspecified Qualified Code(s): E03.9 - Hypothyroidism, unspecified Code(s): E03.9 - Hypothyroidism, unspecified Status: Chronic Assessment and Plan: Continue his home levothyroxine. TSH is elevated, could be in the setting of stress reaction from acute rhabdo above. Recommend repeat TSH outpatient and follow up with PCP prior to making any medication adjustments. Subjective Date/time seen: 08/02/20 0900 Interval history: Ms. Gomez is a 49yo M admitted for acute rhabdomyolysis after an incident where he fell at home and was down for a long time after the fall. He is feeling well today and regaining upper and lower extremity strength. He has healing laceration from biting his tongue when he fell. He has tongue pain and swelling that is persistent but a little improved from yesterday. He denies chest pain, shortness of breath, cough or trouble swallowing. No nausea or vomiting. Review of Systems Review of Systems: All systems reviewed & are unremarkable except as noted in HPI and below Exam Narrative: Exam Narrative: General: Male resting comfortably supine in bed in no acute distress. HEENT: Normocephalic, EOMI, oral mucosa moist. Tongue is swollen with
[2020-08-02 14:00] VITALS: BP 125/84; PULSE 63; RESP 16; TEMP 36.7; O2SAT 100
[2020-08-02 21:52] VITALS: BP 150/92; PULSE 74; RESP 16; TEMP 36.2; O2SAT 100
[2020-08-03] MEDS: SODIUM BICARBONATE 8.4% 150 MEQ in DEXTROSE 5% 1,000 ML 950 ML IV CONT ×2 (00:07→06:08)
[2020-08-03] MEDS: HYDROcodone/acetaminophen (*CRX) 5-325 MG TABLET 1 TAB PO ×4 (02:36→19:37)
[2020-08-03 06:00] VITALS: BP 139/84; PULSE 58; RESP 16; TEMP 36.3; O2SAT 100
[2020-08-03] MEDS: LEVOTHYROXINE SODIUM 150 MCG TABLET PO (06:07)
[2020-08-03 07:13] LABS: Alanine Aminotransferase 159 U/L (4-50); Albumin Level 3.3 g/dL (3.5-5.1); Alkaline Phosphatase 43 U/L (38-126); Anion Gap 4 mmol/L (8-16); Aspartate Amino Transferase 317 U/L (17-59); Bilirubin,Total 0.5 mg/dL (0.2-1.3); Blood Urea Nitrogen 12 mg/dL (9-20); Calcium 8.2 mg/dL (8.4-10.2); Carbon Dioxide 39 mmol/L (22-30); Chloride 95 mmol/L (98-107); Creatine Kinase 11077 U/L (55-170); Estimated CRCL calculation 104 ml/min; Estimated Glomerular Filt Rate > 60; Glucose 95 mg/dL (75-110); Magnesium 2.1 mg/dL (1.6-2.3); Potassium 3.6 mmol/L (3.4-5.0); Sodium 138 mmol/L (137-145)
[2020-08-03] MEDS: FLUoxetine HCL 20 MG CAPSULE PO (08:39)
[2020-08-03] MEDS: FOLIC ACID 1 MG TABLET PO (08:39)
[2020-08-03] MEDS: FAMOTIDINE 20 MG TABLET PO ×2 (08:39→21:38)
[2020-08-03] MEDS: ENOXAPARIN 40 MG/0.4 ML SYRINGE SUB-Q (08:39)
[2020-08-03] MEDS: AMOXICILLIN/CLAVULANATE K 875-125 MG TAB 1 TABLET PO ×2 (08:39→18:22)
[2020-08-03] MEDS: THIAMINE HCL 100 MG TABLET PO (08:39)
[2020-08-03] MEDS: ASPIRIN 325 MG ENTERIC TABLET PO (08:39)
--- NOTE | 2020-08-03 11:02 | PM.IMPN ---
Progress Note: A&P Assessment and Plan (1) Rhabdomyolysis: Qualifiers: Encounter type: subsequent encounter Rhabdomyolysis type: traumatic Qualified Code(s): T79.6XXD - Traumatic ischemia of muscle, subsequent encounter Code(s): M62.82 - Rhabdomyolysis Status: Acute Assessment and Plan: Patient fell 07/27 and details are unclear 2/2 ETOH. Suspect rhabdo secondary to trauma/fall, unclear how long he was down. He had mostly been weak in bed since that time up until admission. He is doing well ambulating the halls now. Renal function is adequate, will continue to monitor. Continue IV fluids, change from the bicarbD5 back to NS; monitor BMP and CK daily. CK trending down to 11,077 today. (2) CVA (cerebral vascular accident): Qualifiers: CVA mechanism: unspecified Qualified Code(s): I63.9 - Cerebral infarction, unspecified Code(s): I63.9 - Cerebral infarction, unspecified Status: Acute Assessment and Plan: Punctate old left cerebellar infarction is noted on CT and MRI brain. He was unaware he had a stroke at any point. Carotid ultrasound is normal, echo is normal. Neurology was consulted - appreciate input. Fasting lipid panel within normal limits. Would consider starting statin therapy for stroke risk reduction after resolution of acute rhabdomyolysis; continue ASA. (3) Puncture wound of tongue: Qualifiers: Encounter type: sequela Qualified Code(s): S01.532S - Puncture wound without foreign body of oral cavity, sequela Code(s): S01.532A - Puncture wound without foreign body of oral cavity, initial encounter Status: Acute Assessment and Plan: Patient bit his tongue when he fell in the bathtub several days ago. It is swollen and sore but improving. Continue with Augmentin. Add magic mouthwash. (4) Anxiety and depression: Code(s): F41.9 - Anxiety disorder, unspecified; F32.9 - Major depressive disorder, single episode, unspecified Status: Chronic Assessment and Plan: Stable. Continue home medications. (5) Elevated liver enzymes: Code(s): R74.8 - Abnormal levels of other serum enzymes Status: Acute Assessment and Plan: Trending down; Suspect stress reaction secondary to rhabdo. Hepatitis panel is negative. RUQ US is negative. Monitor CMP (6) Hypothyroidism: Qualifiers: Hypothyroidism type: unspecified Qualified Code(s): E03.9 - Hypothyroidism, unspecified Code(s): E03.9 - Hypothyroidism, unspecified Status: Chronic Assessment and Plan: Continue his home levothyroxine. TSH is elevated, could be in the setting of stress reaction from acute rhabdo above. Recommend repeat TSH outpatient and follow up with PCP prior to making any medication adjustments. Subjective Date/time seen: 08/03/20 11:00 Interval history: Ms. Gomez is a 49yo M admitted for acute rhabdomyolysis after an incident where he fell at home and was down for a long time after the fall. He is feeling well today and has walked in the halls a bit. Upper and lower extremity strength is improving and back near his baseline. He denies chest pain, shortness of breath, cough or trouble swallowing. His tongue is swollen and sore but improving. Review of Systems Review of Systems: All systems reviewed & are unremarkable except as noted in HPI and below Exam Narrative: Exam Narrative: General: Male resting comfortably supine in bed in no acute distress. HEENT: Normocephalic, EOMI, oral mucosa moist. Tongue is swollen with ulcerated excoriations from bilateral lower teeth and healing nonbleeding laceration on the right, looks improved from days isaiah
[2020-08-03] MEDS: SODIUM CHLORIDE 0.9% IV 1,000 ML 125 ML IV CONT ×2 (13:12→21:44)
[2020-08-03 14:00] VITALS: BP 133/90; PULSE 65; RESP 16; TEMP 36.4; O2SAT 99
[2020-08-03] MEDS: MAGNES & ALUM HYD/SIMETH/DIPHENHYD/LIDOCAINE 119 ML MOUTHWASH BY MOUTH (14:27)
[2020-08-03 20:00] VITALS: BP 129/95; PULSE 71; RESP 20; TEMP 37.4; O2SAT 100
[2020-08-03 23:13] VITALS: PULSE 65; RESP 20; O2SAT 95
[2020-08-04 03:24] VITALS: PULSE 77; RESP 18; O2SAT 94
[2020-08-04 04:00] VITALS: BP 128/65; PULSE 64; RESP 20; TEMP 36.5; O2SAT 98
[2020-08-04 05:08] LABS: Basophils Absolute Auto 0.1 K/mm3 (0.0-0.1); Basophils Percent Auto 1.4 % (0.2-1.2); Eosinophils Absolute Auto 0.3 K/mm3 (0-0.3); Eosinophils Percent Auto 5.5 % (0-4.4); Hematocrit 34.6 % (42.0-52.0); Hemoglobin 11.9 g/dL (14.0-18.0); Immature Granulocyte Percent A 1.8 % (0-0.5); Lymphocytes Absolute Auto 1.57 K/mm3 (0.9-3.2); Lymphocytes Percent Auto 28.1 % (18.3-44.2); Mean Corpuscular HGB Conc 34.4 g/dl (32-36); Mean Corpuscular Hemoglobin 33.2 pg (26-34); Mean Corpuscular Volume 96.6 fl (80-100); Mean Platelet Volume 9.1 fl (7.4-10.4); Monocytes Absolute Auto 0.3 K/mm3 (0.1-0.6); Monocytes Percent Auto 5.2 % (2.6-8.5); Neutrophils Absolute Auto 3.2 K/mm3 (1.3-6.7); Platelet Count Result 228 k/mm3 (150-375); Red Blood Count 3.58 M/mm3 (4.6-6.20); Red Cell Distribution Width 12.4 % (11.5-14.5); White Blood Count 5.6 K/mm3 (4.5-10.0)
[2020-08-04 05:40] LABS: Alanine Aminotransferase 142 U/L (4-50); Albumin Level 3.2 g/dL (3.5-5.1); Alkaline Phosphatase 49 U/L (38-126); Anion Gap 6 mmol/L (8-16); Aspartate Amino Transferase 186 U/L (17-59); Bilirubin,Total 0.5 mg/dL (0.2-1.3); Blood Urea Nitrogen 13 mg/dL (9-20); Calcium 8.4 mg/dL (8.4-10.2); Carbon Dioxide 31 mmol/L (22-30); Chloride 101 mmol/L (98-107); Estimated CRCL calculation 104 ml/min; Estimated Glomerular Filt Rate > 60; Glucose 91 mg/dL (75-110); Potassium 3.6 mmol/L (3.4-5.0); Sodium 138 mmol/L (137-145)
[2020-08-04 05:59] LABS: Creatine Kinase 4566 U/L (55-170)
[2020-08-04] MEDS: LEVOTHYROXINE SODIUM 150 MCG TABLET PO (06:19)
[2020-08-04] MEDS: SODIUM CHLORIDE 0.9% IV 1,000 ML 125 ML IV CONT (06:21)
[2020-08-04] MEDS: FLUoxetine HCL 20 MG CAPSULE PO (09:07)
[2020-08-04] MEDS: FAMOTIDINE 20 MG TABLET PO (09:07)
[2020-08-04] MEDS: FOLIC ACID 1 MG TABLET PO (09:07)
[2020-08-04] MEDS: THIAMINE HCL 100 MG TABLET PO (09:08)
[2020-08-04] MEDS: ENOXAPARIN 40 MG/0.4 ML SYRINGE SUB-Q (09:08)
[2020-08-04] MEDS: AMOXICILLIN/CLAVULANATE K 875-125 MG TAB 1 TABLET PO (09:08)
[2020-08-04] MEDS: ASPIRIN 325 MG ENTERIC TABLET PO (09:08)
--- NOTE | 2020-08-04 10:35 | PM.DS ---
DS: Admitting Diagnosis Admitting Diagnosis Admitting Diagnosis: Rhado, elevated liver enzyme, Tongu puncture wound DS: Discharge Diagnosis Discharge Diagnosis (1) Rhabdomyolysis: Qualifiers: Encounter type: subsequent encounter Rhabdomyolysis type: traumatic Qualified Code(s): T79.6XXD - Traumatic ischemia of muscle, subsequent encounter Code(s): M62.82 - Rhabdomyolysis Status: Acute Assessment and Plan: Date of Admission 07/31/20 Date of Discharge/DOS 08/04/20 Mr. Gomez is a pleasant 49yo M with history of hypothyroidism, anxiety and depression who presented to the ER for evaluation of bilateral upper and lower extremity weakness after a fall 4 days prior. He describes the details were unclear as he believes he may have been intoxicated from alcohol, but notes he thinks he was in the shower/bathtub and fell, striking his head and biting his tongue. He had mostly been lying in bed for the last few days after the fall prior to arrival. CT brain followed by MRI brain showed no acute fractures or infarcts but did demonstrate a punctate old left cerebellar CVA. Patient was unaware he'd had a stroke at any point. Would consider starting statin therapy for stroke risk reduction after resolution of acute rhabdomyolysis. Creatine kinase was markedly elevated at > 16,000 for two days. He was treated for acute rhabdomyolysis secondary to acute trauma, suspected fall. LFTs were also elevated suspected secondary to same. He was treated with IV fluids and his CK and LFTs trended down as expected. Renal function remained adequate. His upper and lower extremity strength was improved. He was hemodynamically stable for discharge 08/04/20 with instructions to follow up with PCP in 1 week and repeat blood work to trend CK, LFTs. Patient fell 07/27 and details are unclear 2/2 alcohol intoxication. Suspect rhabdo secondary to trauma/fall, unclear how long he was down. He had mostly been weak in bed since that time up until admission. He is doing well ambulating the halls now without difficulty. Renal function is adequate. (2) Elevated liver enzymes: Code(s): R74.8 - Abnormal levels of other serum enzymes Status: Acute Assessment and Plan: Trending down; Suspect stress reaction secondary to rhabdo. Hepatitis panel is negative. RUQ US is negative. Monitor CMP (3) Puncture wound of tongue: Qualifiers: Encounter type: sequela Qualified Code(s): S01.532S - Puncture wound without foreign body of oral cavity, sequela Code(s): S01.532A - Puncture wound without foreign body of oral cavity, initial encounter Status: Acute Assessment and Plan: Patient bit his tongue when he fell in the bathtub several days ago. It is swollen and sore but improving. Continue with Augmentin. Add magic mouthwash. (4) Anxiety and depression: Code(s): F41.9 - Anxiety disorder, unspecified; F32.9 - Major depressive disorder, single episode, unspecified Status: Chronic Assessment and Plan: Stable. Continue home medications. (5) CVA (cerebral vascular accident): Qualifiers: CVA mechanism: unspecified Qualified Code(s): I63.9 - Cerebral infarction, unspecified Code(s): I63.9 - Cerebral infarction, unspecified Status: Acute Assessment and Plan: Punctate old left cerebellar infarction is noted on CT and MRI brain. He was unaware he had a stroke at any point. Carotid ultrasound is normal, echo is normal. Neurology was consulted. Fasting lipid panel within normal limits. Would consider starting statin therapy for stroke risk reduction after resolution of acute rhabdomyolysis; continue ASA. (6) Hypothyroidism: Qualifiers: Hypothyroidism type: unspecified Qualified Code(s): E03.9 - Hypothyroidism, unspecified Code(s): E03.9 - Hypothyroidism, unspecified Status: Chronic Assessment and Tate
[2020-08-04 13:48] VITALS: BP 117/67; PULSE 72; RESP 16; TEMP 36.5; O2SAT 100
== END 2020-08-04 16:55 | disposition home or self-care (01) | DRG 566 ==
LOC: ANHED 22:40 → ANH2MED 08-01 04:23
PROVIDERS: Emergency Medicine Emergency Medical Services; Nurse Practitioner; Admitting Provider Family Medicine; Emergency Provider Emergency Medicine; PCP Family Medicine; Visit Provider Physician Assistant
DX: T79.6XXA Traumatic ischemia of muscle, initial encounter (principal); E03.9 Hypothyroidism, unspecified; F41.8 Other specified anxiety disorders; R74.8 Abnormal levels of other serum enzymes; S01.532A Puncture wound without foreign body of oral cavity, initial encounter; F10.20 Alcohol dependence, uncomplicated; W18.2XXA Fall in (into) shower or empty bathtub, initial encounter; R29.700 NIHSS score 0; Z86.73 Personal history of transient ischemic attack (TIA), and cerebral infarction without residual deficits
CPT/HCPCS: 36415; 70450; 70553; 72125; 76705; 80048; 80053; 80061; 80074; 80076; 80307; 81001; 82550; 83735; 84439; 84443; 84480; 85025; 93306; 93880; 94660; 96360; 96375; 97161; 97165; 99285; A9270; A9577; J1650; J2270; J3411; J3475; J7030; J7070

== ENCOUNTER 2020-08-06 12:59 | Outpatient (CLI) | payer OTHER, SELFPAY ==
[2020-08-06 13:41] LABS: Alanine Aminotransferase 154 U/L (4-50); Albumin Level 4.2 g/dL (3.5-5.1); Alkaline Phosphatase 70 U/L (38-126); Anion Gap 11 mmol/L (8-16); Aspartate Amino Transferase 117 U/L (17-59); Bilirubin,Total 0.4 mg/dL (0.2-1.3); Blood Urea Nitrogen 18 mg/dL (9-20); Calcium 9.7 mg/dL (8.4-10.2); Carbon Dioxide 29 mmol/L (22-30); Chloride 98 mmol/L (98-107); Creatine Kinase 825 U/L (55-170); Estimated Glomerular Filt Rate > 60; Glucose 94 mg/dL (75-110); Potassium 4.1 mmol/L (3.4-5.0); Sodium 138 mmol/L (137-145)
== END 2020-08-06 13:00 | disposition home or self-care (01) ==
LOC: ANHLAB 13:01
PROVIDERS: PCP Family Medicine; Visit Provider Physician Assistant
DX: M62.82 Rhabdomyolysis (principal)
CPT/HCPCS: 36415; 80053; 82550

== ENCOUNTER 2020-08-29 12:40 | Outpatient (CLI) | payer OTHER, SELFPAY ==
[2020-08-29 13:41] LABS: Alanine Aminotransferase 20 U/L (4-50); Albumin Level 4.5 g/dL (3.5-5.1); Alkaline Phosphatase 70 U/L (38-126); Anion Gap 8 mmol/L (8-16); Aspartate Amino Transferase 25 U/L (17-59); Bilirubin,Total 0.4 mg/dL (0.2-1.3); Blood Urea Nitrogen 18 mg/dL (9-20); Calcium 9.6 mg/dL (8.4-10.2); Carbon Dioxide 28 mmol/L (22-30); Chloride 102 mmol/L (98-107); Creatine Kinase 86 U/L (55-170); Estimated Glomerular Filt Rate > 60; Glucose 87 mg/dL (75-110); Potassium 4.2 mmol/L (3.4-5.0); Sodium 138 mmol/L (137-145)
[2020-08-29 13:49] LABS: Creatine Kinase MB 0.8 ng/mL (0.0-2.37)
[2020-08-29 14:32] LABS: Free T4 Free Thyroxine 1.25 ng/mL (0.78-2.19)
== END 2020-08-29 12:41 | disposition home or self-care (01) ==
PROVIDERS: PCP Family Medicine; Visit Provider Nurse Practitioner Family
DX: R74.8 Abnormal levels of other serum enzymes (principal); T79.6XXD Traumatic ischemia of muscle, subsequent encounter; E03.9 Hypothyroidism, unspecified
CPT/HCPCS: 36415; 80053; 82550; 82553; 84439; 84443

== ENCOUNTER 2020-11-05 10:19 | Outpatient (CLI) | payer BC, SELFPAY ==
--- NOTE | ~2020-11-05 | XR_ITS ---
EXAMINATION: XR elbow LT min 3V DATE: 11/05/2020 10:33 INDICATION: Left elbow pain post injury several months prior. TECHNIQUE: Anteroposterior, two oblique and lateral views of the left elbow were obtained. COMPARISON: None. FINDINGS: Alignment is normal. No fracture or joint effusion. Joint spaces are normal. Soft tissues are unremar kable. IMPRESSION: 1. Negative left elbow radiographs. Reviewed, dictated and finalized at location A. [employer] SCI[employer]IST
[2020-11-05 11:10] LABS: Basophils Absolute Auto 0.1 K/mm3 (0.0-0.1); Basophils Percent Auto 1.5 % (0.2-1.2); Eosinophils Absolute Auto 0.2 K/mm3 (0-0.3); Hematocrit 39.9 % (42.0-52.0); Hemoglobin 13.9 g/dL (14.0-18.0); Immature Granulocyte Absolute 0.03 K/mm3 (0.00-0.031); Immature Granulocyte Percent A 0.6 % (0-0.5); Lymphocytes Absolute Auto 1.17 K/mm3 (0.9-3.2); Lymphocytes Percent Auto 22.2 % (18.3-44.2); Mean Corpuscular HGB Conc 34.8 g/dl (32-36); Mean Corpuscular Hemoglobin 33.1 pg (26-34); Mean Platelet Volume 9.1 fl (7.4-10.4); Monocytes Absolute Auto 0.5 K/mm3 (0.1-0.6); Monocytes Percent Auto 9.8 % (2.6-8.5); Neutrophils Absolute Auto 3.3 K/mm3 (1.3-6.7); Neutrophils Percent Auto 62.9 % (45.5-73.1); Platelet Count Result 217 k/mm3 (150-375); Red Cell Distribution Width 12.5 % (11.5-14.5); White Blood Count 5.3 K/mm3 (4.5-10.0)
[2020-11-05 12:35] LABS: Iron 91 ug/dL (49-181)
[2020-11-05 12:39] LABS: Alanine Aminotransferase 25 U/L (4-50); Albumin Level 4.4 g/dL (3.5-5.1); Alkaline Phosphatase 66 U/L (38-126); Anion Gap 7 mmol/L (8-16); Aspartate Amino Transferase 32 U/L (17-59); Bilirubin,Total 0.6 mg/dL (0.2-1.3); Blood Urea Nitrogen 19 mg/dL (9-20); Calcium 9.4 mg/dL (8.4-10.2); Carbon Dioxide 27 mmol/L (22-30); Chloride 105 mmol/L (98-107); Creatine Kinase 168 U/L (55-170); Estimated Glomerular Filt Rate > 60; Glucose 95 mg/dL (75-110); Sodium 139 mmol/L (137-145)
[2020-11-05 12:48] LABS: Percent Iron Saturation 30 % (20-50)
[2020-11-05 12:53] LABS: Free T4 Free Thyroxine 1.28 ng/mL (0.78-2.19)
[2020-11-08 13:37] LABS: GGT 29 U/L (3-95)
== END 2020-11-05 10:20 | disposition home or self-care (01) ==
LOC: ANHLAB 10:20
PROVIDERS: PCP Family Medicine; Visit Provider Family Medicine
DX: D64.9 Anemia, unspecified (principal); T79.6XXD Traumatic ischemia of muscle, subsequent encounter; R74.8 Abnormal levels of other serum enzymes; E03.9 Hypothyroidism, unspecified; M25.522 Pain in left elbow
CPT/HCPCS: 36415; 73080; 80048; 80076; 82550; 82607; 82977; 83540; 83550; 84439; 84443; 85025

== ENCOUNTER 2021-03-26 12:09 | Emergency (ER) | payer BC, SELFPAY ==
--- NOTE | ~2021-03-26 | XR_ITS ---
EXAMINATION: XR chest 1V portable EXAM DATE: 03/26/2021 14:41 INDICATION: Confusion, no chest complaints. TECHNIQUE: Portable AP frontal chest x-ray was obtained. Comparison is made to prior examination from 07/13/2017. FINDINGS: The lungs are clear. There are no pleural effusions. Cardiac silhouette is prominent but magnified on this AP technique. There is no pneumothorax suspected. The bones and soft tissues are unremarkable. IMPRESSION: No acute cardiopulmonary findings. Reviewed, dictated and finalized at location B.
[2021-03-26 12:28] VITALS: BP 155/92; PULSE 77; RESP 20; TEMP 36.8; O2SAT 97
[2021-03-26 13:42] VITALS: BP 117/94; PULSE 76; RESP 20; TEMP 36.8; O2SAT 98
--- NOTE | 2021-03-26 14:05 | ECG_ITS ---
Measurements Intervals Andrews Rate: 80 P: 44 SC: 155 QRS: -18 QRSD: 85 T: 15 QT: 343 QTc: 397 Interpretive Statements SINUS RHYTHM WITH SINUS ARRHYTHMIA POSSIBLE LEFT ATRIAL ENLARGEMENT BORDERLINE ECG Electronically Signed On 03-26-2021 15:58:40 CDT by Christian Maurice D.O.
--- NOTE | 2021-03-26 14:16 | ED.GENADULT ---
HPI - General Adult General Chief complaint: Altered Mental Status Stated complaint: Confusion after taking gummy Time Seen by Provider: 03/26/21 13:50 Source: patient, EMS and RN notes reviewed Mode of arrival: EMS Limitations: no limitations History of Present Illness HPI narrative: Patient is 50 years old white female presented to the ED with stress, anxiety, insomnia, restlessness, shaking, dizziness, off balance, depression for the last 1-1/2-year, getting worse over the last few weeks. Patient stopped his anxiety medication for a while, today tried street edible, followed by exacerbation of the above symptoms. Patient lives alone, , denies any fever, chills, nausea, vomiting, patient was started on testosterone treatment 6 weeks ago patient denies suicidal or homicidal ideation. Related Data Home Medications Medication Instructions Recorded Confirmed aspirin 325 mg PO DAILY 08/01/20 11/03/20 Allergies Allergy/AdvReac Type Severity Reaction Status Date / Time No Known Allergies Allergy Verified 03/26/21 08:40 Review of Systems Review of Systems: Narrative: CONSTITUTIONAL: Denies fever, chills, or sweats. EYES: Denies visual changes, redness, or discharge. ENT: Denies rhinorrhea, congestion, sore throat, or otalgia. CARDIOVASCULAR: Denies chest pain, palpitations, or edema. RESPIRATORY: Denies cough or dyspnea. GASTROINTESTINAL: Denies abdominal pain, nausea, vomiting, or diarrhea. GENITOURINARY: Denies dysuria or hematuria. SKIN: Denies rash or itching. MUSCULOSKELETAL: Denies back pain, joint pain, or myalgia. NEUROLOGIC: Denies headache, numbness, or weakness. PSYCHIATRIC: Denies anxiety or depression. [facility] Past Medical History Medical History Anemia Anxiety Anxiety and depression BMI 28.0-28.9,adult BMI 29.0-29.9,adult Broken femur Cerebrovascular accident (CVA) Dizziness Elevated cholesterol Hypothyroidism Hypothyroidism, unspecified Irritation of left eye Left elbow pain Neuropathy due to herpes zoster Obstructive sleep apnea Palpitations Poor sleep Pulmonary embolism Screen for colon cancer Sleep apnea in adult Tachycardia Visual blurriness Surgical History Surgical History H/O vasectomy History of open reduction and internal fixation (ORIF) procedure Left femur at the age of 6 Family History Family History Mother Diabetes mellitus Acute myocardial infarction Thyroid cancer Cerebrovascular accident Father Acute myocardial infarction Bladder cancer Chronic emphysema syndrome Sibling No problems noted. Social History Social History Social History: The patient is and he has 2 children. One is 16 in the other 1 is 20. 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 He states that he drinks socially and is very sociable. He could not quantify how much she drinks and when he drinks. He stated that he use marijuana maybe 6 times in his whole life time. He denies using illicit drugs. He does not have a durable power assistant county attorney for healthcare. He is a full code. He isn't nonsmoker. Smoking status: Never smoker Second hand tobacco smoke exposure: No Alcohol intake: current Drinks per week: 15 Substance use: current Substance use type: marijuana Gender identity (if verbalized by the patient): Male Spiritual care concerns: No Exam Narrative: Exam Narrative: General appearance: Well-developed, well-nourished, shaking, restless, looks anxious Skin: Normal color, Head: Normocephalic, nontraumatic Eyes: Clear conjunctiva ENT: Oropharynx normal, ears normal, nose normal Neck: Supple, nontender Chest and respiratory: Airway patent, no respiratory distress, no accessory muscle use Heart: Regul
[2021-03-26 14:27] LABS: Basophils Absolute Auto 0.1 K/mm3 (0.0-0.1); Basophils Percent Auto 1.3 % (0.2-1.2); Eosinophils Absolute Auto 0.1 K/mm3 (0-0.3); Eosinophils Percent Auto 0.8 % (0-4.4); Hemoglobin 14.5 g/dL (14.0-18.0); Immature Granulocyte Absolute 0.06 K/mm3 (0.00-0.031); Immature Granulocyte Percent A 0.6 % (0-0.5); Lymphocytes Absolute Auto 1.41 K/mm3 (0.9-3.2); Lymphocytes Percent Auto 13.7 % (18.3-44.2); Mean Corpuscular HGB Conc 33.7 g/dl (32-36); Mean Corpuscular Hemoglobin 32.9 pg (26-34); Mean Corpuscular Volume 97.5 fl (80-100); Mean Platelet Volume 9.4 fl (7.4-10.4); Monocytes Absolute Auto 0.6 K/mm3 (0.1-0.6); Monocytes Percent Auto 5.5 % (2.6-8.5); Neutrophils Percent Auto 78.1 % (45.5-73.1); Platelet Count Result 243 k/mm3 (150-375); Red Blood Count 4.41 M/mm3 (4.6-6.20); Red Cell Distribution Width 12.7 % (11.5-14.5); White Blood Count 10.3 K/mm3 (4.5-10.0)
[2021-03-26 14:32] LABS: Alveolar/Arterial O2 Gradient 19.6 mmHg; Base Excess ABG 0.8 mEq/l (+/-2.0); Device ROOM AIR; Fractional Inspired Oxygen 21 %; HCO3 ABG 24.3 mEq/l (22.0-26.0); Modified Allen's Test Pass; Oxygen Content ABG 20.7 %vol (16.0-22.0); Oxygen Saturation ABG 97.1 % (95.0-100.0); Oxyhemoglobin 95.9 % THb (90.0-100.0); PCO2 ABG 35.4 mmHg (35.0-45.0); PO2 ABG 87.7 mmHg (80.0-100.0); PO2 FiO2 Ratio Arterial Blood 4.18 %; Site Drawn RIGHT RADIAL; Total Hemoglobin 15.3 g/dL (12.0-18.0); pH ABG 7.454 (7.350-7.450)
[2021-03-26 14:38] LABS: Alanine Aminotransferase 26 U/L (4-50); Albumin Level 4.5 g/dL (3.5-5.1); Alkaline Phosphatase 57 U/L (38-126); Anion Gap 9 mmol/L (8-16); Aspartate Amino Transferase 39 U/L (17-59); Bilirubin,Total 0.7 mg/dL (0.2-1.3); Blood Urea Nitrogen 18 mg/dL (9-20); Calcium 9.3 mg/dL (8.4-10.2); Carbon Dioxide 25 mmol/L (22-30); Chloride 102 mmol/L (98-107); Estimated CRCL calculation 85 ml/min; Estimated Glomerular Filt Rate > 60; Glucose 113 mg/dL (75-110); Potassium 3.8 mmol/L (3.4-5.0); Sodium 136 mmol/L (137-145)
[2021-03-26 14:46] LABS: Acetaminophen < 10 ug/mL (10-30); Ethanol < 10 mg/dL (<10); Salicylate < 1.0 mg/dL (2-20)
[2021-03-26 15:32] LABS: Add Urine Microscopic? YES; Appearance Urine Clear (Clear); Bilirubin Urine Negative (Negative); Blood Urine Negative (Negative); Color Urine Amber (Yellow); Glucose Urine UA Negative (Negative); Ketones Urine Negative (Negative); Leukocyte Esterase Ur Negative LEU/UL (Negative); Mucus Urine Few /lpf; Nitrate Urine Negative (Negative); Protein Urine 1+ mg/dL (Negative); RBC Urine 0-2 /hpf (0-2); Urobilinogen Urine Negative mg/dL (<2.0); WBC Urine 0-3 /hpf
[2021-03-26 15:39] LABS: Specific Grav Ur 1.031 (1.001-1.035)
[2021-03-26 15:45] LABS: Barbiturate Screen Urine Negative (Negative); Benzodiazepines Screen Urine Negative (Negative)
[2021-03-26 15:48] LABS: Amphetamine Screen Urine Negative (Negative); Cannabinoid Screen Urine Positive (Negative); Cocaine Screen Urine Negative (Negative); Methadone Screen Urine Negative (Negative); Opiate Screen Urine Negative (Negative); Phencyclidine Screen Urine Negative (Negative)
[2021-03-26 16:31] VITALS: BP 136/88; PULSE 90; RESP 17; O2SAT 98
== END 2021-03-26 16:33 | disposition home or self-care (01) ==
PROVIDERS: Emergency Provider Emergency Medicine; PCP Family Medicine
DX: F41.9 Anxiety disorder, unspecified (principal); F32.9 Major depressive disorder, single episode, unspecified; F12.929 Cannabis use, unspecified with intoxication, unspecified; E03.9 Hypothyroidism, unspecified; Z86.73 Personal history of transient ischemic attack (TIA), and cerebral infarction without residual deficits; Z79.82 Long term (current) use of aspirin; Z86.711 Personal history of pulmonary embolism
CPT/HCPCS: 36415; 36600; 71045; 80053; 80307; 81001; 82805; 85025; 93005; 99283; J7030

== ENCOUNTER 2021-03-29 23:05 | Emergency (ER) | payer BC, SELFPAY ==
[2021-03-29 23:13] VITALS: BP 126/89; PULSE 108; RESP 16; TEMP 37.2; O2SAT 99
[2021-03-30] VITALS (27 sets, daily range): BP systolic 116–131; BP diastolic 72–90; PULSE 59–84; RESP 14–20; O2SAT 95–100
--- NOTE | 2021-03-30 00:16 | ED.GENADULT ---
HPI - General Adult General Chief complaint: Anxiety Stated complaint: Disoriented Time Seen by Provider: 03/29/21 23:45 History of Present Illness HPI narrative: Patient 50-year-old gentleman who presents the emergency department with chief complaint of anxiety. Patient reports that he ate a THC brownie this evening and felt extremely anxious. The patient reports he had something similar happen about a week ago whenever he ate a THC gummy. The patient reports he took a bite of the [place] in the little while later started feeling very anxious and very jittery patient denies chest pain denies shortness of breath states that he just feels confused. Related Data Home Medications Medication Instructions Recorded Confirmed aspirin 325 mg PO DAILY 08/01/20 11/03/20 Allergies Allergy/AdvReac Type Severity Reaction Status Date / Time No Known Allergies Allergy Verified 03/26/21 08:40 Review of Systems Review of Systems: Narrative: A 10 system review of systems was completed on the patient and is negative except for what is stated in the HPI. Nursing and ancillary documentation was reviewed. [facility] Past Medical History Medical History Anemia Anxiety Anxiety and depression BMI 28.0-28.9,adult BMI 29.0-29.9,adult Broken femur Cerebrovascular accident (CVA) Dizziness Elevated cholesterol Hypothyroidism Hypothyroidism, unspecified Irritation of left eye Left elbow pain Neuropathy due to herpes zoster Obstructive sleep apnea Palpitations Poor sleep Pulmonary embolism Screen for colon cancer Sleep apnea in adult Tachycardia Visual blurriness Surgical History Surgical History H/O vasectomy History of open reduction and internal fixation (ORIF) procedure Left femur at the age of 6 Family History Family History Mother Diabetes mellitus Acute myocardial infarction Thyroid cancer Cerebrovascular accident Father Acute myocardial infarction Bladder cancer Chronic emphysema syndrome Sibling No problems noted. Social History Social History Social History: The patient is and he has 2 children. One is 16 in the other 1 is 20. 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 He states that he drinks socially and is very sociable. He could not quantify how much she drinks and when he drinks. He stated that he use marijuana maybe 6 times in his whole life time. He denies using illicit drugs. He does not have a durable power sports attorney for healthcare. He is a full code. He isn't nonsmoker. Smoking status: Never smoker Second hand tobacco smoke exposure: No Alcohol intake: current Drinks per week: 15 Substance use: current Substance use type: marijuana Gender identity (if verbalized by the patient): Male Spiritual care concerns: No Exam Narrative: Exam Narrative: GENERAL: Well-appearing, well-nourished, and in no acute distress. HEAD: Normocephalic, atraumatic. EYES: PERRLA and EOMI. ENT: Nares clear, no rhinorrhea or epistaxis. Mucous membranes moist. NECK: Supple. CHEST: Clear to auscultation. No respiratory distress. HEART: Regular rate and rhythm. No murmur heard. Normal peripheral pulses. ABDOMEN: Soft, nontender, nondistended, normal active bowel sounds. EXTREMITIES: Normal range of motion. No edema. SKIN: Warm, dry, no rash. NEURO: No focal deficits. Alert and oriented x3. PSYCH: Anxious mood and affect. Course Vital Signs Vital signs: Vital Signs Temperature 37.2 C 03/29/21 23:13 Pulse Rate 108 H 03/29/21 23:13 Respiratory Rate 16 03/29/21 23:13 Blood Pressure 126/89 03/29/21 23:13 Pulse Oximetry 99 03/29/21 23:13 Temperature 37.2 C
[2021-03-30 00:19] LABS: Basophils Absolute Auto 0.1 K/mm3 (0.0-0.1); Basophils Percent Auto 0.9 % (0.2-1.2); Eosinophils Absolute Auto 0.2 K/mm3 (0-0.3); Hematocrit 41.6 % (42.0-52.0); Hemoglobin 13.9 g/dL (14.0-18.0); Immature Granulocyte Absolute 0.04 K/mm3 (0.00-0.031); Immature Granulocyte Percent A 0.5 % (0-0.5); Lymphocytes Absolute Auto 1.61 K/mm3 (0.9-3.2); Lymphocytes Percent Auto 21.6 % (18.3-44.2); Mean Corpuscular HGB Conc 33.4 g/dl (32-36); Mean Corpuscular Hemoglobin 32.4 pg (26-34); Mean Platelet Volume 9.2 fl (7.4-10.4); Monocytes Absolute Auto 0.6 K/mm3 (0.1-0.6); Monocytes Percent Auto 8.4 % (2.6-8.5); Neutrophils Percent Auto 66.6 % (45.5-73.1); Platelet Count Result 239 k/mm3 (150-375); Red Blood Count 4.29 M/mm3 (4.6-6.20); Red Cell Distribution Width 12.8 % (11.5-14.5); White Blood Count 7.5 K/mm3 (4.5-10.0)
[2021-03-30] MEDS: LORazepam INJ (*CRX) 2 MG/ML VIAL 1 MG IV PUSH (00:21)
--- NOTE | 2021-03-30 00:27 | ECG_ITS ---
Measurements Intervals [place] Rate: 76 P: 45 CT: 148 QRS: -15 QRSD: 91 T: 17 QT: 340 QTc: 382 Interpretive Statements SINUS RHYTHM NORMAL ECG Electronically Signed On 03-30-2021 7:50:52 CDT by Christian Maurice D.O.
[2021-03-30 00:45] LABS: Alanine Aminotransferase 22 U/L (4-50); Alkaline Phosphatase 73 U/L (38-126); Anion Gap 7 mmol/L (8-16); Aspartate Amino Transferase 35 U/L (17-59); Bilirubin,Total 0.4 mg/dL (0.2-1.3); Blood Urea Nitrogen 20 mg/dL (9-20); Calcium 8.7 mg/dL (8.4-10.2); Carbon Dioxide 25 mmol/L (22-30); Chloride 104 mmol/L (98-107); Estimated Glomerular Filt Rate > 60; Glucose 96 mg/dL (65-110); Potassium 4.1 mmol/L (3.4-5.0); Sodium 136 mmol/L (137-145)
--- NOTE | 2021-03-30 06:05 | PC.NURSE ---
pt up to restroom with steady, even, unassisted gait. back to room without difficulty. when asked how he feels, pt responds with I still feel really out of it. Pt has been sleeping soundly while in ED, with easy, even, nonlabored respirations. no longer restless and appears calm and in no distress.
== END 2021-03-30 06:43 | disposition home or self-care (01) ==
PROVIDERS: Emergency Provider Emergency Medicine; PCP Family Medicine
DX: F41.9 Anxiety disorder, unspecified (principal); D64.9 Anemia, unspecified; E03.9 Hypothyroidism, unspecified; E78.00 Pure hypercholesterolemia, unspecified; G47.33 Obstructive sleep apnea (adult) (pediatric); Z86.711 Personal history of pulmonary embolism; Z79.82 Long term (current) use of aspirin
CPT/HCPCS: 36415; 80053; 83735; 85025; 93005; 96374; 99284; J2060

== ENCOUNTER 2021-05-27 09:00 | Emergency (ER) | payer BC, SELFPAY ==
--- NOTE | ~2021-05-27 | CT_ITS ---
EXAMINATION: CT brain wo con, CT cervical spine wo con EXAM DATE: 05/27/2021 09:56 (accession [id number]), 05/27/2021 09:57 (accession [id number]) INDICATION: Dizziness, limb heaviness. Neck pain. TECHNIQUE: Spiral CT of the head was performed without contrast. Axial, coronal and sagittal images were reviewed. Spiral CT of the cervical spine was performed without contrast. Axial images were rev iewed. Coronal and sagittal reformatted images were also reviewed. The dose-length product (DLP) fo r this examination was 681.00 (accession [id number]), 470.39 (accession [id number]) mGy-cm. The exposure was tailored according to patient size, and iterative reconstruction (ASIR) was used as additional dose reduction technique. Comparison is made to prior examination from 07/31/2020. FINDINGS: HEAD CT: Punctate old left cerebellar infarction. There is no acute intraparenchymal hemorrhage. No evidence of intraparenchymal brain mass lesion. No evidence of acute infarction. There is no mass ef fect or midline shift. There is no obstructive hydrocephalus suspected. There are no extra-axial col lections. There are no acute calvarial fractures. The orbits are unremarkable. Soft tissue is unre markable. The visualized sinuses and mastoid air cells are well aerated. CERVICAL CT: There is no evidence of acute cervical fracture. The odontoid process is intact. Pre-d ens space is normal. Prevertebral soft tissue is normal. There are no soft tissue abnormalities cristóbal ntified. There is no disc space widening or traumatic vertebral body subluxation suspected. Mild ce rvical spondylosis. A detailed level by level evaluation of spondylosis can be added as addendum if requested. IMPRESSION: 1. No acute intracranial findings or cervical fracture. 2. Punctate old left cerebellar infarction. Reviewed, dictated and finalized at location B. IMPRESSION: 1. No acute intracranial findings or cervical fracture. 2. Punctate old left cerebellar infarction.
[2021-05-27 09:15] VITALS: BP 146/99; PULSE 70; RESP 12; TEMP 37.4; O2SAT 100
--- NOTE | 2021-05-27 09:41 | ECG_ITS ---
Measurements Intervals [place] Rate: 66 P: 52 UT: 153 QRS: -25 QRSD: 90 T: 9 QT: 375 QTc: 394 Interpretive Statements SINUS RHYTHM BORDERLINE T WAVE ABNORMALITY- INFERIOR LEADS BASELINE ARTIFACT- II, III, AVR, AVF, V3-V6 BORDERLINE ECG Electronically Signed On 05-27-2021 10:55:51 CDT by Christian Maurice D.O.
--- NOTE | 2021-05-27 09:48 | ED.GENADULT ---
HPI - General Adult General Chief complaint: Neuro Symptoms/Deficit Stated complaint: dizzy , ears ringing, onset- months Time Seen by Provider: 05/27/21 09:18 History of Present Illness HPI narrative: Patient is a 50-year-old gentleman who presents the emergency department with chief complaint of dizziness and right-sided weakness. Patient reports the symptoms have been going on for several months and reports that he has seen his primary care physician and they are planning on ordering an MRI of his head and neck. Patient states that his symptoms of gotten a little worse today and that he is gotten very anxious about this. The patient states that he does have a lot of anxiety and reports that the symptoms are not improved by anything nor they worsened by anything. Related Data Home Medications Medication Instructions Recorded Confirmed aspirin 325 mg PO DAILY 08/01/20 05/21/21 testosterone enanthate 75 mg/0.5 75 mg SUBCUT WEEKLY 04/01/21 05/21/21 mL subcutaneous auto-injector Allergies Allergy/AdvReac Type Severity Reaction Status Date / Time No Known Allergies Allergy Verified 05/21/21 08:35 Review of Systems Review of Systems: A 10 system review of systems was completed on the patient and is negative except for what is stated in the HPI. Nursing and ancillary documentation was reviewed. [facility] Past Medical History Medical History Anemia Anxiety Anxiety and depression BMI 27.0-27.9,adult BMI 28.0-28.9,adult BMI 29.0-29.9,adult Broken femur Cerebrovascular accident (CVA) COVID-19 Dizziness Elevated cholesterol Hypothyroidism Hypothyroidism, unspecified Irritation of left eye Left elbow pain Neuropathy due to herpes zoster Obstructive sleep apnea Palpitations Poor sleep Pulmonary embolism Screen for colon cancer Sleep apnea in adult Tachycardia Visual blurriness Surgical History Surgical History H/O vasectomy History of open reduction and internal fixation (ORIF) procedure Left femur at the age of 6 Family History Family History Mother Diabetes mellitus Acute myocardial infarction Thyroid cancer Cerebrovascular accident Father Acute myocardial infarction Bladder cancer Chronic emphysema syndrome Sibling COVID-19 Social History Social History Social History: The patient is and he has 2 children. One is 16 in the other 1 is 20. 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 He states that he drinks socially and is very sociable. He could not quantify how much she drinks and when he drinks. He stated that he use marijuana maybe 6 times in his whole life time. He denies using illicit drugs. He does not have a durable power manager retail for healthcare. He is a full code. He isn't nonsmoker. 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 HEAD: Normocephalic, atraumatic. EYES: PERRLA and EOMI. ENT: Nares clear, no rhinorrhea or epistaxis. Mucous membranes moist. NECK: Supple. CHEST: Clear to auscultation. No respiratory distress. HEART: Regular rate and rhythm. No murmur heard. Normal peripheral pulses. ABDOMEN: Soft, nontender, nondistended, normal active bowel sounds. EXTREMITIES: Normal range of motion. No edema. SKIN: Warm, dry, no rash. NEURO: No focal deficits. Alert and oriented x3. PSYCH: Normal mood and aff
[2021-05-27 09:58] VITALS: BP 129/96; PULSE 68; RESP 9; O2SAT 100
[2021-05-27 10:01] VITALS: BP 131/95; PULSE 68; RESP 10; O2SAT 100
[2021-05-27] MEDS: LORazepam INJ (*CRX) 2 MG/ML VIAL 1 MG IV PUSH (10:12)
[2021-05-27 10:22] LABS: Basophils Absolute Auto 0.1 K/mm3 (0.0-0.1); Basophils Percent Auto 1.7 % (0.2-1.2); Eosinophils Absolute Auto 0.1 K/mm3 (0-0.3); Eosinophils Percent Auto 2.4 % (0-4.4); Hematocrit 44.7 % (42.0-52.0); Immature Granulocyte Absolute 0.05 K/mm3 (0.00-0.031); Immature Granulocyte Percent A 0.8 % (0-0.5); Lymphocytes Absolute Auto 1.59 K/mm3 (0.9-3.2); Lymphocytes Percent Auto 26.8 % (18.3-44.2); Mean Corpuscular HGB Conc 33.6 g/dl (32-36); Mean Corpuscular Volume 95.3 fl (80-100); Mean Platelet Volume 9.4 fl (7.4-10.4); Monocytes Absolute Auto 0.4 K/mm3 (0.1-0.6); Monocytes Percent Auto 7.1 % (2.6-8.5); Neutrophils Absolute Auto 3.6 K/mm3 (1.3-6.7); Neutrophils Percent Auto 61.2 % (45.5-73.1); Platelet Count Result 220 k/mm3 (150-375); Red Blood Count 4.69 M/mm3 (4.6-6.20); Red Cell Distribution Width 12.5 % (11.5-14.5); White Blood Count 5.9 K/mm3 (4.5-10.0)
[2021-05-27 10:23] LABS: Add Urine Microscopic? NO; Appearance Urine Clear (Clear); Bilirubin Urine Negative (Negative); Blood Urine Negative (Negative); Color Urine Colorless (Yellow); Glucose Urine UA Negative (Negative); Ketones Urine Negative (Negative); Leukocyte Esterase Ur Negative LEU/UL (Negative); Nitrate Urine Negative (Negative); Protein Urine Negative (Negative); Urobilinogen Urine Negative mg/dL (<2.0)
[2021-05-27 10:31] VITALS: BP 115/96; PULSE 74; RESP 16; O2SAT 98
[2021-05-27 10:31] LABS: Specific Grav Ur 1.004 (1.001-1.035)
[2021-05-27 10:36] LABS: Alanine Aminotransferase 16 U/L (4-50); Albumin Level 4.1 g/dL (3.5-5.1); Alkaline Phosphatase 64 U/L (38-126); Anion Gap 7 mmol/L (8-16); Aspartate Amino Transferase 23 U/L (17-59); Bilirubin,Total 0.4 mg/dL (0.2-1.3); Blood Urea Nitrogen 18 mg/dL (9-20); Calcium 9.1 mg/dL (8.4-10.2); Carbon Dioxide 27 mmol/L (22-30); Chloride 105 mmol/L (98-107); Estimated CRCL calculation 93 ml/min; Estimated Glomerular Filt Rate > 60; Glucose 92 mg/dL (65-110); Magnesium 2.1 mg/dL (1.6-2.3); Potassium 4.7 mmol/L (3.4-5.0); Sodium 139 mmol/L (137-145)
[2021-05-27 11:20] VITALS: BP 118/87; PULSE 69; RESP 16; TEMP 36.8; O2SAT 98
== END 2021-05-27 11:20 | disposition home or self-care (01) ==
PROVIDERS: Emergency Provider Emergency Medicine; PCP Family Medicine
DX: R42 Dizziness and giddiness (principal); R20.2 Paresthesia of skin; E03.9 Hypothyroidism, unspecified; G47.33 Obstructive sleep apnea (adult) (pediatric); Z86.16 Personal history of COVID-19; Z86.73 Personal history of transient ischemic attack (TIA), and cerebral infarction without residual deficits; Z86.711 Personal history of pulmonary embolism; Z79.82 Long term (current) use of aspirin; Z77.22 Contact with and (suspected) exposure to environmental tobacco smoke (acute) (chronic); R94.31 Abnormal electrocardiogram [ECG] [EKG]
CPT/HCPCS: 36415; 70450; 72125; 80053; 81003; 83735; 85025; 93005; 96374; 99284; J2060

== ENCOUNTER 2021-06-03 13:28 | Outpatient (CLI) | payer BC, SELFPAY ==
--- NOTE | ~2021-06-03 | MR_ITS ---
EXAMINATION: MR brain/brain stem wo con DATE: 06/03/2021 14:12 INDICATION: Tinnitus, unspecified ear. TECHNIQUE: Magnetic resonance imaging (MRI) of the brain and brainstem was performed without intraven ous contrast. Sequences included sagittal and axial T1-weighted FSE, axial diffusion-weighted FS EPI, axial T2*-weighted GRE, axial T2-weighted FLAIR Propeller, and axial T2-weighted Propeller. Apparent diffusion coefficient (ADC) maps were created. COMPARISON: Brain MRI 08/01/2020, 06/28/19, 03/05/16 FINDINGS: There are prominent perivascular spaces involving the lissette and bilateral cerebral white mat ter. There are scattered areas of nonspecific increased T2-weighted signal intensity in the cerebral white matter, which is within normal limits for the patient's age. There is a small old infarct in l eft cerebellum. There is a small old infarct in left caudate nucleus. There is no intracranial hemorr lane, acute infarction, or abnormal intracranial mass lesion. The ventricles are normal in size. Ther e is mild mucosal thickening in the ethmoid sinuses. The orbits are normal. The mastoid air cells are normal. IMPRESSION: 1. Small old infarcts in the left caudate nucleus and left cerebellum. Reviewed, dictated and finalized at location A.
== END 2021-06-03 13:29 | disposition home or self-care (01) ==
LOC: ANHIMG 13:37
PROVIDERS: PCP Family Medicine; Visit Provider Nurse Practitioner Family
DX: H53.8 Other visual disturbances (principal); H93.19 Tinnitus, unspecified ear; I63.9 Cerebral infarction, unspecified; R42 Dizziness and giddiness
CPT/HCPCS: 70551

== ENCOUNTER 2021-12-11 09:32 | Outpatient (CLI) | payer OTHER, SELFPAY ==
[2021-12-11 10:05] LABS: Hematocrit 43.8 % (42.0-52.0); Hemoglobin 14.7 g/dL (14.0-18.0); Mean Corpuscular HGB Conc 33.6 g/dl (32-36); Mean Corpuscular Hemoglobin 33.3 pg (26-34); Mean Corpuscular Volume 99.1 fl (80-100); Mean Platelet Volume 9.4 fl (7.4-10.4); Platelet Count Result 228 k/mm3 (150-375); Red Blood Count 4.42 M/mm3 (4.6-6.20); Red Cell Distribution Width 12.1 % (11.5-14.5); White Blood Count 6.8 K/mm3 (4.5-10.0)
[2021-12-11 10:06] LABS: Alanine Aminotransferase 22 U/L (4-50); Albumin Level 4.8 g/dL (3.5-5.1); Alkaline Phosphatase 74 U/L (38-126); Anion Gap 7 mmol/L (8-16); Aspartate Amino Transferase 30 U/L (17-59); Bilirubin,Total 0.6 mg/dL (0.2-1.3); Blood Urea Nitrogen 22 mg/dL (9-20); Calcium 9.3 mg/dL (8.4-10.2); Carbon Dioxide 30 mmol/L (22-30); Chloride 102 mmol/L (98-107); Estimated Glomerular Filt Rate > 60; Glucose 108 mg/dL (65-110); Magnesium 2.3 mg/dL (1.6-2.3); Potassium 4.6 mmol/L (3.4-5.0); Sodium 139 mmol/L (137-145)
[2021-12-11 10:35] LABS: Prostate Specific Antigen 1.2 ng/mL (< OR = 4.0)
[2021-12-18 21:01] LABS: Testosterone Free 46.6 pg/mL (35.0-155.0); Testosterone Total 207 ng/dL (250-1100)
== END 2021-12-11 09:33 | disposition home or self-care (01) ==
LOC: ANHLAB 09:34
PROVIDERS: PCP Family Medicine; Visit Provider Nurse Practitioner Family
DX: F41.9 Anxiety disorder, unspecified (principal); E29.1 Testicular hypofunction; R53.83 Other fatigue; R20.2 Paresthesia of skin; Z12.5 Encounter for screening for malignant neoplasm of prostate
CPT/HCPCS: 36415; 80053; 82607; 83735; 84153; 84402; 84403; 84443; 85027; G0103

== ENCOUNTER 2023-01-25 11:00 | Outpatient (RCR) | payer OTHER, SELFPAY ==
--- NOTE | 2023-01-04 14:16 | PTOPEVAL1 ---
Assessment and note entered by Zina Grande, PT, DPT Evaluation Information Assessment Status Evaluation Diagnosis R shoulder adhesive capsulitis Subjective Information Pt states he has a frozen shoulder. He states the cortisone injection he got about a week ago really helped with his pain but the motion is still really lacking. He states since the injection he has been able to sleep better. He states he likes to golf and is going to attempt this to tomorrow. He states it feels like his shoulder loosens up as he uses it. He states his goals are to return to golf and his normal daily tasks without limitations. Reported Pain Level Pain Score 0: Self Report Assessment PT Clinical Summary Ignacio presents to therapy today for his initial evaluation with a diagnosis of L adhesive capsulitis. Today he demonstrates decreased ROM actively and passive in all directions. He demonstrates active and passive flexion to 95 deg and 105 deg respectively and abduction to 68 deg and 72 deg respectively. He demonstrates good UE strength within available range. Skilled physical therapy services are indicated to improve active and passive ROM, to improve functional mobility, and to return to baseline function. Plan of Care Interventions Gait Training,Hot Pack/Cold Pack,Manual Therapy, Neuro Re-education,Patient/Caregiver Educati, Therapeutic Activities,Therapeutic Exercise PT Services Indicated Yes Treatment Frequency and 2x/wk for 4 wks Duration These treatments will address the objective and functional deficits as defined above. The patient will be advanced safely and appropriately in order for the patient to progress towards his/her prior level of function. Additional exercises will be introduced and as well as a comprehensive home exercise program upon discharge, if needed, ?to ensure carryover of functional gains achieved in the clinic. This treatment plan has been reviewed and agreement upon by the patient.
--- NOTE | 2023-01-20 09:49 | PCPTNOTE ---
Patient has a work conflict and has to cancel appointment.
--- NOTE | 2023-03-28 15:19 | PTOPDC ---
Assessment and note entered by Zina Grande, PT, DPT Evaluation Information Assessment Status Discharge - Pt Not Present Diagnosis R shoulder adhesive capsulitis Subjective Information Have called pt on 2 different occasions about rescheduling if needed and have not heard from him . Assessment PT Clinical Summary Pt completed 5 visits of skilled therapy from 01/04 to 01/25/23 and has not return since. He will be discharged at this d/t prolonged period without treatment. If he needs additional therapy at a later time he will need a new order. Attempted to call pt to notify of d/c, unable to reach him.
== END 2023-03-28 16:12 | disposition home or self-care (01) ==
LOC: ANHGOSHPT 11:00
PROVIDERS: PCP Family Medicine; Visit Provider Orthopaedic Surgery
DX: M75.01 Adhesive capsulitis of right shoulder (principal)
CPT/HCPCS: 97110; 97112; 97140; 97161; J2250; J3010

== ENCOUNTER 2023-09-15 10:14 | Emergency (ER) | payer OTHER, SELFPAY ==
[2023-09-15] VITALS (13 sets, daily range): BP systolic 125–156; BP diastolic 91–99; PULSE 67–118; RESP 11–21; TEMP 37; O2SAT 98–100
--- NOTE | ~2023-09-15 | CT_ITS ---
EXAMINATION: CT brain wo con DATE: 09/15/2023 11:21 INDICATION: Confusion. Memory deficit. TECHNIQUE: Computed tomography (CT) of the head was performed without intravenous contrast. The mA wa s adjusted according to patient size. Iterative reconstruction technique was employed. Exam dose: 60 5.33 mGy-cm total exam DLP. COMPARISON: 06/03/2021 MRI brain 05/27/2021 CT brain FINDINGS: Mild cerebral calcified atherosclerosis. No intracranial mass lesion or hemorrhage. Small old left cerebellar infarct. Chronic small lacunar infarct of head of left caudate nucleus No recent cerebrovascular accident. No midline shift or mass effect. No subdural or epidural hematoma . Normal ventricular size. The orbits are unremarkable. There is prominent soft tissue thickening of the dominant right sphenoid sinus. The included paranasa l sinuses and mastoid air cells are otherwise unremarkable. No fracture or bone destruction of the cranial vault. IMPRESSION: Posterior left cerebellar infarct and small chronic lacunar infarct of the head of the l eft caudate nucleus are again noted No acute intracranial finding Reviewed, dictated and finalized at Location A. Reviewed, dictated and finalized at location L. 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
--- NOTE | ~2023-09-15 | XR_ITS ---
EXAMINATION: XR chest 1V DATE: 09/15/2023 11:24 INDICATION: Confusion TECHNIQUE: frontal view of the chest was obtained. COMPARISON: Chest radiograph dated 03/26/2021 FINDINGS: The lungs remain clear with no focal airspace opacities, pulmonary edema, pleural effusion or pneumot horax. The cardiomediastinal silhouette is normal. Visualized bones and soft tissues are unremarkable . IMPRESSION: 1. No acute cardiopulmonary disease. Reviewed, dictated and finalized at location A. SPRING [facility]INDER
--- NOTE | 2023-09-15 11:11 | ECG_ITS ---
Measurements Intervals [place] Rate: 59 P: 11 [place]: 151 QRS: -19 QRSD: 97 T: 3 QT: 397 QTc: 395 Interpretive Statements SINUS BRADYCARDIA BASELINE ARTIFACT- I, II, III, AVR, AVL, AVF, V1-V2 BORDERLINE ECG COMPARED TO ECG 05/27/2021 10:43:55 SINUS BRADYCARDIA NOW PRESENT Electronically Signed On 09-15-2023 12:25:38 [employer] by Christian Maurice D.O.
[2023-09-15] MEDS: ALPRAZolam (*CRX) 0.5 MG TABLET PO (11:48)
--- NOTE | 2023-09-15 11:54 | ED.GENADULT ---
HPI - General Adult General Chief complaint: Unspecified Stated complaint: disoriented Time Seen by Provider: 09/15/23 10:50 History of Present Illness HPI narrative: Patient is a 53-year-old male who presents ER with anxiety and feeling of disorientation. 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 This is preceded by having a migraine last week where he is having aura of change in taste or smell. Denies fevers or chills or sweats. This is different or than he typically has. No nausea or vomiting at this time. No focal weakness or numbness to any arm or leg but has history of CVA in the past. Patient has become exceedingly worked up and is near tears during HPI. Patient also reports having a seizure in the past but is not on any Keppra at this time. He weaned himself off after taking it for a year. His previous seizure was generalized tonic-clonic. Related Data Home Medications Medication Instructions Recorded Confirmed aspirin 325 mg tablet 325 mg PO DAILY 08/01/20 02/16/23 escitalopram oxalate 20 mg tablet 20 mg PO DAILY 09/15/23 (Lexapro) Allergies Allergy/AdvReac Type Severity Reaction Status Date / Time No Known Allergies Allergy Verified 02/16/23 09:29 Review of Systems Review of Systems: All systems reviewed & are unremarkable except as noted in HPI and below Constitutional: Constitutional: Reports no additional constitutional complaints ENT: Reports system reviewed and no additional complaints, except as documented Cardiovascular: Cardiovascular: Reports no additional cardiovascular complaints Respiratory: Respiratory: Reports no additional respiratory complaints Musculoskeletal: Musculoskeletal: Reports no additional musculoskeletal complaints Neurologic: Denies Abnormal speech present, Reports confusion, Denies syncope, Reports headache(s), Denies focal weakness and Denies Sensory deficit (Neuro) Psychiatric: Psychiatric: Reports anxiety PMFSH Past Medical History Medical History Anemia Anxiety Anxiety and depression BMI 26.0-26.9,adult BMI 27.0-27.9,adult BMI 28.0-28.9,adult BMI 29.0-29.9,adult Broken femur Cerebrovascular accident (CVA) COVID-19 Dizziness Elevated cholesterol Hypothyroidism Hypothyroidism, unspecified Irritation of left eye Left elbow pain Neuropathy due to herpes zoster Obstructive sleep apnea Palpitations Poor sleep Pulmonary embolism Screen for colon cancer Sleep apnea in adult Tachycardia Visual blurriness Surgical History Surgical History H/O vasectomy History of open reduction and internal fixation (ORIF) procedure Left femur at the age of 6 Hx of LASIK Family History Family History Mother Diabetes mellitus Acute myocardial infarction Thyroid cancer Cerebrovascular accident Father Acute myocardial infarction Bladder cancer Chronic emphysema syndrome Sibling COVID-19 Social History Social History Social History: The patient is and he has 2 children. One is 16 in the other 1 is 20. 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 He states that he drinks socially and is very sociable. He could not quantify how much she drinks and when he drinks. He stated that he use marijuana maybe 6 times in his whole life time. He denies using illicit drugs. He does not have a durable power energy attorney for healthcare. He is a full code. He isn't nonsmoker. Smoking status: Never smoker Second hand tobacco smoke exposure: Yes Alcohol intake: current Drinks per week: 15 Substance use: current Substance use type: marijuana Lack of Transportation: No Lack of Food: Never True
[2023-09-15 12:19] LABS: Basophils Absolute Auto 0.1 K/mm3 (0.0-0.1); Basophils Percent Auto 0.9 % (0.2-1.2); Eosinophils Absolute Auto 0.1 K/mm3 (0-0.3); Eosinophils Percent Auto 1.6 % (0-4.4); Hematocrit 41.4 % (42.0-52.0); Hemoglobin 13.9 g/dL (14.0-18.0); Immature Granulocyte Absolute 0.04 K/mm3 (0.00-0.031); Immature Granulocyte Percent A 0.5 % (0-0.5); Lymphocytes Percent Auto 22.3 % (18.3-44.2); Mean Corpuscular HGB Conc 33.6 g/dl (32-36); Mean Corpuscular Hemoglobin 32.6 pg (26-34); Mean Corpuscular Volume 97.2 fl (80-100); Mean Platelet Volume 9.5 fl (7.4-10.4); Monocytes Absolute Auto 0.4 K/mm3 (0.1-0.6); Monocytes Percent Auto 5.1 % (2.6-8.5); Neutrophils Absolute Auto 5.3 K/mm3 (1.3-6.7); Neutrophils Percent Auto 69.6 % (45.5-73.1); Platelet Count Result 244 k/mm3 (150-375); Red Blood Count 4.26 M/mm3 (4.6-6.20); Red Cell Distribution Width 12.5 % (11.5-14.5); White Blood Count 7.6 K/mm3 (4.5-10.0)
[2023-09-15 12:30] LABS: Alanine Aminotransferase 43 U/L (6-50); Albumin Level 4.4 g/dL (3.5-5.1); Alkaline Phosphatase 71 U/L (38-126); Anion Gap 9 mmol/L (8-16); Aspartate Amino Transferase 48 U/L (17-59); Bilirubin,Total 0.8 mg/dL (0.2-1.3); Blood Urea Nitrogen 15 mg/dL (9-20); Calcium 9.3 mg/dL (8.4-10.2); Carbon Dioxide 25 mmol/L (22-30); Chloride 104 mmol/L (98-107); Estimated CRCL calculation 101 ml/min; Estimated Glomerular Filt Rate > 60; Glucose 100 mg/dL (65-110); INR 0.9; Prothrombin Time 12.8 Seconds (11.1-14.7); Sodium 138 mmol/L (137-145)
[2023-09-15 12:31] LABS: Partial Thromboplastin Time 37.1 SECONDS (22.3-36.8)
[2023-09-15 12:41] LABS: Troponin I < 0.012 ng/mL (0.000-0.034)
== END 2023-09-15 13:30 | disposition home or self-care (01) ==
PROVIDERS: Emergency Provider Emergency Medicine; PCP Nurse Practitioner Family
DX: F41.9 Anxiety disorder, unspecified (principal); R41.0 Disorientation, unspecified; E78.00 Pure hypercholesterolemia, unspecified; E03.9 Hypothyroidism, unspecified; D64.9 Anemia, unspecified; G47.33 Obstructive sleep apnea (adult) (pediatric); F32.A Depression, unspecified; Z86.711 Personal history of pulmonary embolism; Z86.73 Personal history of transient ischemic attack (TIA), and cerebral infarction without residual deficits; Z86.16 Personal history of COVID-19; R00.1 Bradycardia, unspecified; R94.31 Abnormal electrocardiogram [ECG] [EKG]
CPT/HCPCS: 36415; 70450; 71045; 80053; 84484; 85025; 85610; 85730; 93005; 99284; A9270

== ENCOUNTER 2023-09-27 09:34 | Outpatient (CLI) | payer OTHER, SELFPAY ==
[2023-09-27 19:52] LABS: Cholesterol 270 mg/dL (0-200); HDL Direct 48 mg/dL; Triglycerides 387 mg/dL (<150)
[2023-09-27 20:02] LABS: LDL Cholesterol Direct 137 mg/dL
[2023-09-27 20:24] LABS: Prostate Specific Antigen 1.2 ng/mL (< OR = 4.0)
[2023-09-30 14:00] LABS: Testosterone Total 211 ng/dL (250-1100)
[2023-10-01 11:01] LABS: Testosterone Free 31.1 pg/mL (46.0-224.0)
== END 2023-09-27 09:35 | disposition home or self-care (01) ==
LOC: ANHGOSHLAB 09:35
PROVIDERS: PCP Nurse Practitioner Family; Visit Provider Nurse Practitioner Family
DX: Z12.5 Encounter for screening for malignant neoplasm of prostate (principal); F41.9 Anxiety disorder, unspecified; R53.83 Other fatigue; Z68.26 Body mass index [BMI] 26.0-26.9, adult
CPT/HCPCS: 36415; 80061; 84153; 84402; 84403; 84443; G0103

== ENCOUNTER 2023-11-30 13:13 | Emergency (ER) | payer OTHER, SELFPAY ==
[2023-11-30 13:19] VITALS: BP 151/104; PULSE 75; RESP 16; TEMP 36.5; O2SAT 100
--- NOTE | 2023-11-30 14:29 | ED.ANXIETY ---
HPI - Anxiety General Chief Complaint: Anxiety Stated Complaint: depression/anxiety Time Seen by Provider: 11/30/23 14:29 Source: patient Mode of arrival: ambulatory Limitations: no limitations History of Present Illness HPI narrative: Ignacio is a 53-year-old male patient presenting to the ER today for increased anxiety. He reports has a history of depression/anxiety. History of recent medication change from Cymbalta to 50-100 mg. States over the past week he has felt increasingly anxious. Denies any chest pain, shortness of breath. Does have periods of tingling going down his arms when he feels more anxious. Recently had a CT of his head and August and it was normal. He denies any suicidal or homicidal ideation. Related Data Home Medications Medication Instructions Recorded Confirmed aspirin 325 mg tablet 325 mg PO DAILY 08/01/20 10/04/23 Allergies Allergy/AdvReac Type Severity Reaction Status Date / Time No Known Allergies Allergy Verified 10/04/23 14:46 Review of Systems Review of Systems: Pertinent positives per HPI. Patient denies any fever, chills, rash, headache, visual changes, dizziness, cough, runny nose, sore throat, shortness of breath, chest pain, palpitations, nausea, vomiting, diarrhea, constipation, abdominal pain, or any urinary issues. [facility] Past Medical History Medical History Anemia Anxiety Anxiety and depression BMI 26.0-26.9,adult BMI 27.0-27.9,adult BMI 28.0-28.9,adult BMI 29.0-29.9,adult Broken femur Cerebrovascular accident (CVA) COVID-19 Dizziness Elevated cholesterol Hypothyroidism Hypothyroidism, unspecified Irritation of left eye Left elbow pain Neuropathy due to herpes zoster Obstructive sleep apnea Palpitations Poor sleep Pulmonary embolism Screen for colon cancer Sleep apnea in adult Tachycardia Visual blurriness Surgical History Surgical History H/O vasectomy History of open reduction and internal fixation (ORIF) procedure Left femur at the age of 6 Hx of LASIK Family History Family History Mother Diabetes mellitus Acute myocardial infarction Thyroid cancer Cerebrovascular accident Father Acute myocardial infarction Bladder cancer Chronic emphysema syndrome Sibling COVID-19 Grandparent Cancer Grandparent Cancer Social History Social History Social History: The patient is and he has 2 children. One is 16 in the other 1 is 20. 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 He states that he drinks socially and is very sociable. He could not quantify how much she drinks and when he drinks. He stated that he use marijuana maybe 6 times in his whole life time. He denies using illicit drugs. He does not have a durable power securities attorney for healthcare. He is a full code. He isn't nonsmoker. 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
[2023-11-30 14:46] VITALS: BP 132/92; PULSE 65; RESP 18; O2SAT 100
[2023-11-30] MEDS: ALPRAZolam (*CRX) 0.5 MG TABLET PO (14:47)
== END 2023-11-30 15:00 | disposition home or self-care (01) ==
LOC: ANHED 17:43
PROVIDERS: Emergency Provider Nurse Practitioner Family; PCP Nurse Practitioner Family
DX: F41.9 Anxiety disorder, unspecified (principal); E78.00 Pure hypercholesterolemia, unspecified; E03.9 Hypothyroidism, unspecified; G47.33 Obstructive sleep apnea (adult) (pediatric); Z86.73 Personal history of transient ischemic attack (TIA), and cerebral infarction without residual deficits; Z86.2 Personal history of diseases of the blood and blood-forming organs and certain disorders involving the immune mechanism; Z86.16 Personal history of COVID-19; Z86.711 Personal history of pulmonary embolism; Z79.82 Long term (current) use of aspirin
CPT/HCPCS: 99283; A9270

== ENCOUNTER 2024-05-17 14:18 | Emergency (ER) | payer OTHER, SELFPAY ==
--- NOTE | ~2024-05-17 | CT_ITS ---
EXAMINATION: CT brain wo con DATE: 05/17/2024 14:59 INDICATION: Confusion. TECHNIQUE: Computed tomography (CT) of the head was performed without intravenous contrast. The mA wa s adjusted according to patient size. Iterative reconstruction technique was employed. The dose-lengt h product was 681.00 mGy-cm. COMPARISON: Head CT 09/15/2023 FINDINGS: There is a small old infarct in left cerebellum. There are scattered areas of low attenuati on in the cerebral white matter. There is no intracranial hemorrhage, acute infarction, or abnormal i ntracranial mass lesion. The ventricles are normal in size. The orbits are normal. There is mild muco felicia thickening in the paranasal sinuses. There is a small right mastoid effusion. IMPRESSION: 1. Small old infarct in left cerebellum. 2. Mild nonspecific cerebral white matter disease, which likely represents chronic small vessel ische marilu disease. Reviewed, dictated and finalized at location A. IMPRESSION: 1. Small old infarct in left cerebellum. 2. 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
[2024-05-17 14:23] VITALS: BP 141/91; PULSE 50; RESP 17; TEMP 36.8; O2SAT 99
--- NOTE | 2024-05-17 14:29 | ECG_ITS ---
Test Date: 2024-05-17 14:34:24 Measurements Intervals [place] Rate: 82 P: 41 [place]: 154 QRS: -26 QRSD: 81 T: 46 QT: 351 QTc: 412 Interpretive Statements SINUS RHYTHM POSSIBLE LEFT ATRIAL ENLARGEMENT BASELINE ARTIFACT- I, II, III, AVR, AVL, AVF BORDERLINE ECG No previous ECG available for comparison Electronically Signed On 05-17-2024 14:48:10 CDT by Christian Maurice D.O.
--- NOTE | 2024-05-17 14:30 | ED.GENADULT ---
HPI - General Adult General Chief complaint: Altered Mental Status <Mike Vásquez PA-C - Last Filed: 05/17/24 14:32> Stated complaint: confusion since Tuesday <Mike Vásquez PA-C - Last Filed: 05/17/24 14:32> Time Seen by Provider: 05/17/24 14:29 <Mike Vásquez PA-C - Last Filed: 05/17/24 14:32> Focused HPI: This is a 53-year-old male who presents to the ED for chief complaint of lack of focus and memory troubles over the past couple of days. States that is been very difficult to work due to inability to focus. He knows he has been anxious because he has been grinding his teeth. Reports that he may have had a TIA in the past and has some chronic alteration in sensation on right side. States that his sensation is about 5% last on the right side compared to left. Denies any new onset focal numbness or weakness. Denies vision change, speech change. States that he has felt a little disoriented at times. Endorses intermittent palpitations. Denies head injury, LOC, abdominal pain, chest pain, cough, shortness of breath, headache, neck pain. GENERAL: Well-appearing, well-nourished, and in no acute distress. HEAD: Normocephalic, atraumatic. CHEST: Clear to auscultation. No respiratory distress. HEART: Regular rate and rhythm. NEURO: Alert and oriented x4. 5/5 strength and sensation in the upper and lower extremities. No dysarthria. Patient screened in triage and initial orders placed. Additional care and disposition to be based upon diagnostic testing and treatment. <JUAREZ Solomon Last Filed: 05/17/24 14:32> Source: patient <JUAREZ Solomon Last Filed: 05/17/24 14:32> Mode of arrival: ambulatory <JUAREZ Solomon Last Filed: 05/17/24 14:32> Limitations: no limitations <JUAREZ Solomon Last Filed: 05/17/24 14:32> Related Data Home medications: Home Medications Medication Instructions Recorded Confirmed aspirin 325 mg tablet 325 mg PO DAILY 08/01/20 12/02/23 <Mike Vásquez PA-C - Last Filed: 05/17/24 14:32> Allergies/adverse reactions: Allergies Allergy/AdvReac Type Severity Reaction Status Date / Time No Known Allergies Allergy Verified 05/17/24 15:30 <Mike Vásquez PA-C - Last Filed: 05/17/24 14:32> Review of Systems Review of Systems: All systems reviewed & are unremarkable except as noted in HPI and below <Cesia Sol MD - Last Filed: 05/17/24 18:19> [facility] Past Medical History Medical History: Medical History (Updated 05/17/24 @ 18:14 by Cesia Sol MD) Anemia Anxiety Anxiety and depression BMI 26.0-26.9,adult BMI 27.0-27.9,adult BMI 28.0-28.9,adult BMI 29.0-29.9,adult Broken femur Cerebrovascular accident (CVA) COVID-19 Dizziness Elevated cholesterol Hypothyroidism Hypothyroidism, unspecified Irritation of left eye Left elbow pain Neuropathy due to herpes zoster Obstructive sleep apnea Palpitations Poor sleep Pulmonary embolism Screen for colon cancer Sleep apnea in adult Tachycardia Visual blurriness <Mike Vásquez PA-C - Last Filed: 05/17/24 14:32> Surgical History Surgical History: Surgical History H/O vasectomy History of open reduction and internal fixation (ORIF) procedure Left femur at the age of 6 Hx of LASIK <Mike Vásquez PA-C - Last Filed: 05/17/24 14:32> Family History Family History: Family History Mother Diabetes mellitus Acute myocardial infarction Thyroid cancer Cerebrovascular accident Father Acute myocardial infarction Bladder cancer Chronic emphysema syndrome Sibling COVID-19 Grandparent Cancer Grandparent Cancer <Mike Vásquez PA-C - Last Filed: 05/17/24 14:32> Social History Social History: Social History (Updated 12/02/23 @ 08:31 by Chelsy Lopez MA) Social History: The patien
[2024-05-17 14:40] LABS: Basophils Absolute Auto 0.1 K/mm3 (0.0-0.1); Basophils Percent Auto 0.9 % (0.2-1.2); Eosinophils Absolute Auto 0.1 K/mm3 (0-0.3); Eosinophils Percent Auto 0.7 % (0-4.4); Immature Granulocyte Absolute 0.04 K/mm3 (0.00-0.031); Immature Granulocyte Percent A 0.4 % (0-0.5); Lymphocytes Absolute Auto 1.68 K/mm3 (0.9-3.2); Lymphocytes Percent Auto 17.6 % (18.3-44.2); Mean Corpuscular HGB Conc 35.7 g/dl (32-36); Mean Corpuscular Hemoglobin 33.3 pg (26-34); Mean Corpuscular Volume 93.3 fl (80-100); Mean Platelet Volume 9.6 fl (7.4-10.4); Monocytes Absolute Auto 0.7 K/mm3 (0.1-0.6); Monocytes Percent Auto 7.6 % (2.6-8.5); Neutrophils Absolute Auto 6.9 K/mm3 (1.3-6.7); Neutrophils Percent Auto 72.8 % (45.5-73.1); Platelet Count Result 209 k/mm3 (150-375); Red Cell Distribution Width 12.4 % (11.5-14.5); White Blood Count 9.5 K/mm3 (4.5-10.0)
[2024-05-17 15:11] LABS: Anion Gap 14 mmol/L (4-12); Blood Urea Nitrogen 19 mg/dL (9-20); Calcium 9.1 mg/dL (8.4-10.2); Carbon Dioxide 21 mmol/L (22-30); Chloride 97 mmol/L (98-107); Estimated Glomerular Filt Rate > 60; Glucose 108 mg/dL (65-110); Potassium 3.8 mmol/L (3.4-5.0); Sodium 132 mmol/L (137-145)
[2024-05-17 15:25] VITALS: BP 150/102; PULSE 78; RESP 17; O2SAT 100
[2024-05-17 15:27] VITALS: PULSE 84
[2024-05-17 15:56] LABS: Add Urine Microscopic? NO; Appearance Urine Clear (Clear); Bilirubin Urine Negative (Negative); Blood Urine Negative (Negative); Color Urine Yellow (Yellow); Glucose Urine UA Negative (Negative); Ketones Urine Negative (Negative); Leukocyte Esterase Ur Negative LEU/UL (Negative); Nitrate Urine Negative (Negative); Protein Urine Negative (Negative); Urobilinogen Urine 0.2 mg/dL (<2.0)
[2024-05-17 16:33] VITALS: BP 127/89; PULSE 80; RESP 18; O2SAT 98
[2024-05-17] MEDS: LORazepam (*CRX) 0.5 MG TABLET PO (17:04)
[2024-05-17 17:31] VITALS: BP 153/90; PULSE 77; RESP 17; O2SAT 99
[2024-05-17 18:02] LABS: Ethanol < 10 mg/dL (<10)
[2024-05-17 18:20] VITALS: BP 140/99; PULSE 90; RESP 12; O2SAT 99
== END 2024-05-17 18:20 | disposition home or self-care (01) ==
PROVIDERS: Physician Assistant; Emergency Provider Emergency Medicine; PCP Nurse Practitioner Family
DX: R41.3 Other amnesia (principal); F41.9 Anxiety disorder, unspecified; E78.00 Pure hypercholesterolemia, unspecified; E03.9 Hypothyroidism, unspecified; G47.30 Sleep apnea, unspecified; D64.9 Anemia, unspecified; Z86.73 Personal history of transient ischemic attack (TIA), and cerebral infarction without residual deficits; Z86.711 Personal history of pulmonary embolism; Z79.82 Long term (current) use of aspirin; Z79.899 Other long term (current) drug therapy
CPT/HCPCS: 36415; 70450; 80048; 80307; 81003; 84443; 85025; 93005; 99284; A9270

== ENCOUNTER 2024-05-23 09:53 | Outpatient (CLI) | payer OTHER, SELFPAY ==
[2024-05-23 19:37] LABS: Basophils Absolute Auto 0.1 K/mm3 (0.0-0.1); Basophils Percent Auto 1.4 % (0.2-1.2); Eosinophils Absolute Auto 0.2 K/mm3 (0-0.3); Eosinophils Percent Auto 2.3 % (0-4.4); Hematocrit 44.5 % (42.0-52.0); Hemoglobin 14.7 g/dL (14.0-18.0); Immature Granulocyte Absolute 0.03 K/mm3 (0.00-0.031); Immature Granulocyte Percent A 0.4 % (0-0.5); Immature Platelet Fraction Pct 3.5 % (0.9-11.2); Lymphocytes Absolute Auto 2.03 K/mm3 (0.9-3.2); Mean Corpuscular Hemoglobin 32.8 pg (26-34); Mean Corpuscular Volume 99.3 fl (80-100); Mean Platelet Volume 10.6 fl (7.4-10.4); Monocytes Absolute Auto 0.5 K/mm3 (0.1-0.6); Monocytes Percent Auto 6.3 % (2.6-8.5); Neutrophils Absolute Auto 4.5 K/mm3 (1.3-6.7); Neutrophils Percent Auto 61.6 % (45.5-73.1); Platelet Count Result 255 k/mm3 (150-375); Red Blood Count 4.48 M/mm3 (4.6-6.20); Red Cell Distribution Width 12.6 % (11.5-14.5); White Blood Count 7.3 K/mm3 (4.5-10.0)
[2024-05-23 21:12] LABS: Alanine Aminotransferase 20 U/L (6-50); Albumin Level 4.6 g/dL (3.5-5.1); Alkaline Phosphatase 70 U/L (38-126); Anion Gap 9 mmol/L (4-12); Aspartate Amino Transferase 38 U/L (17-59); Bilirubin,Total 0.8 mg/dL (0.2-1.3); Blood Urea Nitrogen 24 mg/dL (9-20); Calcium 9.4 mg/dL (8.4-10.2); Carbon Dioxide 29 mmol/L (22-30); Chloride 101 mmol/L (98-107); Cholesterol 243 mg/dL (0-200); Estimated Glomerular Filt Rate 53; Glucose 103 mg/dL (65-110); HDL Direct 45 mg/dL; Potassium 4.7 mmol/L (3.4-5.0); Sodium 139 mmol/L (137-145); Triglycerides 176 mg/dL (<150)
[2024-05-23 21:23] LABS: LDL Cholesterol Direct 146 mg/dL
[2024-05-25 21:14] LABS: Testosterone Total 324 ng/dL (250-1100)
[2024-05-26 00:04] LABS: Testosterone Free 47.1 pg/mL (46.0-224.0)
== END 2024-05-23 09:54 | disposition home or self-care (01) ==
LOC: ANHGOSHLAB 09:55
PROVIDERS: PCP Nurse Practitioner Family; Visit Provider Nurse Practitioner Family
DX: R79.89 Other specified abnormal findings of blood chemistry (principal); R56.9 Unspecified convulsions; Z68.26 Body mass index [BMI] 26.0-26.9, adult; G43.809 Other migraine, not intractable, without status migrainosus
CPT/HCPCS: 36415; 80053; 80061; 84402; 84403; 84443; 85025; 85055

== ENCOUNTER 2024-05-31 10:57 | Outpatient (CLI) | payer OTHER, SELFPAY ==
--- NOTE | ~2024-05-31 | MR_ITS ---
MRI of the cervical spine Clinical History: Spondylosis Technique: Axial T2-weighted and gradient images, and sagittal T1-weighted, T2-weighted, and STIR tasha ges were acquired. Findings: There is straightening of the normal cervical lordosis. No fracture or subluxation. No abno rmal bone marrow signal. At C2-C3, there is no disc bulge or herniation. No spinal canal stenosis, cord compression, or neural foraminal narrowing. C3-C4, there is mild degenerative disc narrowing with minimal disc bulge and minimal facet arthropath y. No spinal canal stenosis, cord compression, or definite neural foraminal narrowing. At C4-C5, there is no disc bulge or herniation. No spinal canal stenosis, cord compression, or neural foraminal narrowing. At C5-C6, there is no disc bulge or herniation. No spinal canal stenosis, cord compression, or neural foraminal narrowing. At C6-C7, there is no disc bulge or herniation. No spinal canal stenosis, cord compression, or neural foraminal narrowing. No abnormal signal seen in the spinal cord. Paravertebral soft tissues are unremarkable. Impression: Minimal degenerative change, as above. Reviewed, dictated and finalized at location . Impression: Minimal degenerative change, as above.
== END 2024-05-31 10:58 | disposition home or self-care (01) ==
LOC: MICIMG 10:57
PROVIDERS: PCP Nurse Practitioner Family; Visit Provider Nurse Practitioner Family
DX: M47.812 Spondylosis without myelopathy or radiculopathy, cervical region (principal)
CPT/HCPCS: 72141

== ENCOUNTER 2024-06-19 11:27 | Emergency (ER) | payer OTHER, SELFPAY ==
[2024-06-19] VITALS (8 sets, daily range): BP systolic 137–148; BP diastolic 72–114; PULSE 77–104; RESP 12–20; TEMP 36.7–36.8; O2SAT 95–100
--- NOTE | ~2024-06-19 | CT_ITS ---
EXAMINATION: CTA brain carotid DATE: 06/19/2024 12:38 INDICATION: Headache. Arm weakness. TECHNIQUE: Computed tomographic angiography (CTA) of the head was performed without and with 100 mL O mnipaque-350 intravenous contrast. CTA of the neck was performed with intravenous contrast. Automated exposure control and iterative reconstruction technique were employed. The dose-length product was 1 939.75 mGy-cm. Maximum intensity projection and volume rendered 3D-reconstructions were created by kenney shook technologist on a separate workstation. COMPARISON: Head CT 05/17/2024 FINDINGS: HEAD CTA: There is a small old infarct in the left cerebellum. There are scattered areas of low atten uation in the cerebral white matter. There is no intracranial hemorrhage, acute infarction, or abnorm al intracranial mass lesion. The ventricles are normal in size. There is mild mucosal thickening in t he paranasal sinuses. The orbits are normal. There is a small right mastoid effusion. The vertebral a rteries are codominant. There is associated stenosis of basilar artery or the posterior cerebral teresa yancy. The posterior communicating arteries are normal. There is no significant stenosis of the intrac ranial internal carotid arteries or anterior or middle cerebral arteries. Anterior communicating teresa ry is normal. There is no aneurysm. NECK CTA: There are no pathologically enlarged lymph nodes. There is no significant stenosis of the v ertebral arteries. There is no significant plaque in the proximal internal carotid. There is 0% steno sis of the proximal right internal carotid artery relative to normal distal artery lumen diameter (NA SCET criteria). There is 0% stenosis of the proximal left internal carotid artery relative to normal distal artery lumen diameter. There is mild cervical spondylosis. IMPRESSION: 1. Small old infarct in the left cerebellum. 2. Mild nonspecific cerebral white matter disease, which likely represents chronic small vessel ische marilu disease. 3. No aneurysm or significant intracranial arterial stenosis. 4. 0% stenosis of the proximal internal carotid arteries relative to normal distal artery lumen diame ters (NASCET criteria). Reviewed, dictated and finalized at location A. IMPRESSION: 1. Small old infarct in the left cerebellum. 2. 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 3. No aneurysm or significant intracranial arterial stenosis. 4. 0% stenosis of the proximal internal carotid arteries relative to normal dis maureen artery lumen diameters (NASCET criteria).
--- NOTE | ~2024-06-19 | XR_ITS ---
CHEST RADIOGRAPH CLINICAL HISTORY: syncope, HX OF TIA . COMPARISON: 09/15/2023 TECHNIQUE: Single portable view of the chest. FINDINGS The cardiomediastinal silhouette is unremarkable. The lungs are clear. Visualized osseous structures and soft tissues are unremarkable. IMPRESSION: No focal infiltrate or effusion. Reviewed, dictated and finalized at location A.
--- NOTE | 2024-06-19 11:36 | ECG_ITS ---
Test Date: 2024-06-19 11:40:14 Measurements Intervals [place] Rate: 93 P: 27 [place]: 158 QRS: -32 QRSD: 85 T: 17 QT: 356 QTc: 443 Interpretive Statements SINUS RHYTHM WITH FREQUENT VENTRICULAR PREMATURE COMPLEXES POSSIBLE LEFT ATRIAL ENLARGEMENT [-0.1mV P-WAVE IN V1/V2] LEFT AXIS DEVIATION [QRS AXIS < -30] LOW QRS VOLTAGE IN PRECORDIAL LEADS [QRS DEFLECTION < 1.0 mV IN CHEST LEADS] ABNORMAL ECG Compared to ECG 05/17/2024 14:34:24 Ventricular premature complex(es) now present Electronically Signed On 06-20-2024 07:04:11 CDT by Casey Valerio M.D.
[2024-06-19 11:52] LABS: Basophils Absolute Auto 0.1 K/mm3 (0.0-0.1); Basophils Percent Auto 1.2 % (0.2-1.2); Eosinophils Absolute Auto 0.1 K/mm3 (0-0.3); Eosinophils Percent Auto 0.8 % (0-4.4); Hematocrit 41.9 % (42.0-52.0); Hemoglobin 14.6 g/dL (14.0-18.0); Immature Granulocyte Absolute 0.04 K/mm3 (0.00-0.031); Immature Granulocyte Percent A 0.4 % (0-0.5); Lymphocytes Absolute Auto 1.99 K/mm3 (0.9-3.2); Lymphocytes Percent Auto 21.9 % (18.3-44.2); Mean Corpuscular HGB Conc 34.8 g/dl (32-36); Mean Corpuscular Volume 94.6 fl (80-100); Mean Platelet Volume 9.7 fl (7.4-10.4); Monocytes Absolute Auto 0.5 K/mm3 (0.1-0.6); Monocytes Percent Auto 5.4 % (2.6-8.5); Neutrophils Absolute Auto 6.4 K/mm3 (1.3-6.7); Neutrophils Percent Auto 70.3 % (45.5-73.1); Platelet Count Result 232 k/mm3 (150-375); Red Blood Count 4.43 M/mm3 (4.6-6.20); Red Cell Distribution Width 12.7 % (11.5-14.5); White Blood Count 9.1 K/mm3 (4.5-10.0)
--- NOTE | 2024-06-19 11:57 | PC.NURSE ---
Patient gives permission to medical staff to talk with brother and give information.
[2024-06-19 12:23] LABS: Albumin Level 4.8 g/dL (3.5-5.1); Alkaline Phosphatase 78 U/L (38-126); Anion Gap 19 mmol/L (4-12); Aspartate Amino Transferase 32 U/L (17-59); Bilirubin,Total 0.7 mg/dL (0.2-1.3); Blood Urea Nitrogen 17 mg/dL (9-20); Calcium 9.2 mg/dL (8.4-10.2); Carbon Dioxide 16 mmol/L (22-30); Chloride 102 mmol/L (98-107); Estimated CRCL calculation 94 ml/min; Estimated Glomerular Filt Rate > 60; Glucose 128 mg/dL (65-110); Sodium 137 mmol/L (137-145)
[2024-06-19 12:25] LABS: Alanine Aminotransferase 27 U/L (6-50)
--- NOTE | 2024-06-19 12:58 | ED.SYNCOPE ---
HPI - Syncope General Chief Complaint: Syncope Stated Complaint: possible seizure Time Seen by Provider: 06/19/24 11:52 History of Present Illness HPI narrative: Pt presents after apparent seizure or syncopal episode at work. Pt was witness unresponsive and shaking. Pt complains of a GARCIA and has chronic neck pain and still has this. Pt says his arms feel weak but has no numbness. Pt is a little dizzy but is not unsteady. Pt has no seizure history. Pt denies alcohol or drugs but did drink a lot over weekend and admits to drinking regularly but not had withdrawl symptoms or seizures. Related Data Home Medications Medication Instructions Recorded Confirmed aspirin 325 mg tablet 325 mg PO DAILY 08/01/20 05/23/24 Allergies Allergy/AdvReac Type Severity Reaction Status Date / Time No Known Allergies Allergy Verified 05/23/24 08:59 Review of Systems Review of Systems: All systems reviewed & are unremarkable except as noted in HPI and below PMFSH Past Medical History Medical History Anemia Anxiety Anxiety and depression BMI 26.0-26.9,adult BMI 27.0-27.9,adult BMI 28.0-28.9,adult BMI 29.0-29.9,adult Broken femur Cerebrovascular accident (CVA) COVID-19 Dizziness Elevated cholesterol Hypothyroidism Hypothyroidism, unspecified Irritation of left eye Left elbow pain Neuropathy due to herpes zoster Obstructive sleep apnea Palpitations Poor sleep Pulmonary embolism Screen for colon cancer Sleep apnea in adult Tachycardia Visual blurriness Surgical History Surgical History H/O vasectomy History of open reduction and internal fixation (ORIF) procedure Left femur at the age of 6 Hx of LASIK Family History Family History Mother Diabetes mellitus Acute myocardial infarction Thyroid cancer Cerebrovascular accident Father Acute myocardial infarction Bladder cancer Chronic emphysema syndrome Sibling COVID-19 Grandparent Cancer Grandparent Cancer Social History Social History Social History: The patient is and he has 2 children. One is 16 in the other 1 is 20. 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 He states that he drinks socially and is very sociable. He could not quantify how much she drinks and when he drinks. He stated that he use marijuana maybe 6 times in his whole life time. He denies using illicit drugs. He does not have a durable power attorney lawyer for healthcare. He is a full code. He isn't nonsmoker. 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
== END 2024-06-19 14:20 | disposition home or self-care (01) ==
PROVIDERS: Emergency Provider Emergency Medicine; PCP Nurse Practitioner Family
DX: R56.9 Unspecified convulsions (principal); D64.9 Anemia, unspecified; F41.9 Anxiety disorder, unspecified; Z86.73 Personal history of transient ischemic attack (TIA), and cerebral infarction without residual deficits; E78.5 Hyperlipidemia, unspecified; E03.9 Hypothyroidism, unspecified; Z86.711 Personal history of pulmonary embolism
CPT/HCPCS: 36415; 70496; 70498; 71046; 80053; 85025; 93005; 99284; Q9967

== ENCOUNTER 2024-12-15 11:05 | Outpatient (CLI) | payer OTHER, SELFPAY ==
--- NOTE | ~2024-12-15 | US_ITS ---
Procedure: Duplex Doppler examination of the bilateral carotids. Indication: CVA Technique: Real time, color-flow and pulse wave Doppler examination of the bilateral carotids was performed. Findings: Oconnor scale ultrasonography of the right neck demonstrated no significant plaque. There was demonstrat ion of normal color-flow and Doppler waveforms within the right common, internal and external carotid arteries. The peak systolic velocities in the right common, internal and external carotid arteries w ere demonstrated to be 100 cm/sec, 57 cm/sec and 83 cm/sec respectively. The right ICA/CCA ratio was 0.9.The proximal right internal carotid artery demonstrates 0% stenosis relative to the normal distal artery lumen diameter. Oconnor scale sonography of the left neck demonstrated no significant plaque. There was demonstration of normal color-flow and wave forms within the left common, internal and external carotid arteries. The peak systolic velocities in the left common, internal and external carotid arteries were demonstrate d to be 56cm/sec, 66 cm/sec and 66 cm/sec respectively. The left ICA/CCA ratio was 0.6. The proximal left internal carotid artery demonstrates 0% stenosis relative to the normal distal artery lumen diam eter. There was antegrade flow demonstrated in the bilateral vertebral arteries. Impression: No hemodynamically significant stenosis of the bilateral internal carotid arteries. Antegrade flow in the bilateral vertebral arteries. Note: The methodology used is an indirect measurement validated against a direct method (such as the NASCET criteria) that compares diameters at the stenosis to the distal ICA. Reviewed, dictated and finalized at [facility]. Impression: No hemodynamically significant stenosis of the bilateral internal carotid arter ies. Antegrade flow in the bilateral vertebral arteries. Note: The methodology used is an indirect measurement validated against a direct meth od (such as the NASCET criteria) that compares diameters at the stenosis to the distal ICA.
== END 2024-12-15 11:06 | disposition home or self-care (01) ==
PROVIDERS: PCP Nurse Practitioner Family; Visit Provider Psychiatry & Neurology Neurology
DX: I63.9 Cerebral infarction, unspecified (principal); M54.2 Cervicalgia; G43.809 Other migraine, not intractable, without status migrainosus; R56.9 Unspecified convulsions
CPT/HCPCS: 93880

== ENCOUNTER 2025-02-07 11:07 | Outpatient (CLI) | payer OTHER, SELFPAY ==
[2025-02-07 20:04] LABS: Alanine Aminotransferase 30 U/L (6-50); Albumin Level 4.5 g/dL (3.5-5.1); Anion Gap 9 mmol/L (4-12); Aspartate Amino Transferase 45 U/L (17-59); Bilirubin,Total 0.5 mg/dL (0.2-1.3); Blood Urea Nitrogen 25 mg/dL (9-20); Calcium 9.6 mg/dL (8.4-10.2); Carbon Dioxide 26 mmol/L (22-30); Chloride 101 mmol/L (98-107); Estimated Glomerular Filt Rate > 60; Glucose 82 mg/dL (65-110); Potassium 4.3 mmol/L (3.4-5.0); Sodium 136 mmol/L (137-145); Triglycerides 217 mg/dL (<150)
[2025-02-07 20:05] LABS: Alkaline Phosphatase 82 U/L (38-126); Cholesterol 247 mg/dL (0-200); HDL Direct 38 mg/dL
[2025-02-07 20:19] LABS: Basophils Absolute Auto 0.1 K/mm3 (0.0-0.1); Basophils Percent Auto 1.1 % (0.2-1.2); Eosinophils Absolute Auto 0.2 K/mm3 (0-0.3); Eosinophils Percent Auto 2.9 % (0-4.4); Hematocrit 40.7 % (42.0-52.0); Hemoglobin 13.6 g/dL (14.0-18.0); Immature Granulocyte Absolute 0.03 K/mm3 (0.00-0.031); Immature Granulocyte Percent A 0.5 % (0-0.5); Lymphocytes Absolute Auto 1.92 K/mm3 (0.9-3.2); Lymphocytes Percent Auto 31.1 % (18.3-44.2); Mean Corpuscular HGB Conc 33.4 g/dl (32-36); Mean Corpuscular Hemoglobin 30.9 pg (26-34); Mean Corpuscular Volume 92.5 fl (80-100); Mean Platelet Volume 10.1 fl (7.4-10.4); Monocytes Absolute Auto 0.4 K/mm3 (0.1-0.6); Monocytes Percent Auto 6.3 % (2.6-8.5); Neutrophils Absolute Auto 3.6 K/mm3 (1.3-6.7); Neutrophils Percent Auto 58.1 % (45.5-73.1); Platelet Count Result 139 k/mm3 (150-375); Red Cell Distribution Width 12.5 % (11.5-14.5); White Blood Count 6.2 K/mm3 (4.5-10.0)
[2025-02-07 20:28] LABS: LDL Cholesterol Direct 131 mg/dL
[2025-02-07 20:35] LABS: Thyroid Stimulating Hormone 0.412 uIU/mL (0.465-4.680)
[2025-02-07 20:46] LABS: Erythrocyte Sedimentation Rate 19 mm/hr (0-20)
== END 2025-02-07 11:08 | disposition home or self-care (01) ==
LOC: ANHGOSHLAB 11:08
PROVIDERS: PCP Nurse Practitioner Family; Visit Provider Nurse Practitioner Family
DX: F41.9 Anxiety disorder, unspecified (principal); F32.9 Major depressive disorder, single episode, unspecified; E03.9 Hypothyroidism, unspecified; R74.8 Abnormal levels of other serum enzymes; D64.9 Anemia, unspecified; G43.809 Other migraine, not intractable, without status migrainosus; R20.2 Paresthesia of skin; R42 Dizziness and giddiness; R53.83 Other fatigue
CPT/HCPCS: 36415; 80053; 80061; 84443; 85025; 85652; 86141

== ENCOUNTER 2025-02-19 17:40 | Emergency (ER) | payer OTHER, SELFPAY ==
--- NOTE | ~2025-02-19 | CT_ITS ---
CT brain wo con Ordering provider: Norma Macdonald APRN History: 54 years Male with . headache, numbness, tingling . Comparison: None. Technique: CT of the head without contrast. Radiation reduction technique utilized.The dose-length product was 681 mGy-cm. FINDINGS: BRAIN PARENCHYMA AND CSF SPACES: No midline shift, mass effect or hemorrhage. The brain parenchyma a nd CSF spaces are otherwise normal. VISUALIZED PARANASAL SINUSES: Left maxillary sinus disease. Otherwise, the Well aerated. MASTOIDS: Well aerated. BONES: The bones appear intact. SOFT TISSUES: Visualized nasopharynx is normal. Superficial soft tissues are normal. IMPRESSION: No acute intracranial findings. Reviewed, dictated and finalized at location A.
[2025-02-19 17:46] VITALS: BP 143/104; PULSE 68; RESP 16; TEMP 36.7; O2SAT 99
--- NOTE | 2025-02-19 18:11 | ECG_ITS ---
Test Date: 2025-02-19 18:24:59 Measurements Intervals [place] Rate: 70 P: 24 [place]: 152 QRS: -34 QRSD: 85 T: 2 QT: 393 QTc: 424 Interpretive Statements SINUS RHYTHM WITH OCCASIONAL VENTRICULAR PREMATURE COMPLEXES LEFT AXIS DEVIATION BORDERLINE T WAVE ABNORMALITY- INFERIOR LEADS BORDERLINE ECG Compared to ECG 06/19/2024 11:40:14 No significant changes Electronically Signed On 02-19-2025 20:13:34 CDT by Christian Maurice D.O.
--- NOTE | 2025-02-19 18:13 | ED_ITS ---
HPI - General Adult General Chief complaint: Unspecified Stated complaint: new seizure med started 6/5dizzy, weak,off balance Time Seen by Provider: 02/19/25 17:47 History of Present Illness HPI narrative: Patient is a 54-year-old male her to the ER with complaints numbness in his extremities, dizziness, vertigo and decreased energy. He reports he recently saw a neurologist who took him off of his Cymbalta and put him on Paxil and Zoloft instead. Patient reports he was having terrible side effects from going off the Cymbalta so his primary care provider restarted him on it evening. He reports since then he has had an increase in the symptoms that he believes are related to side effects of the Cymbalta. Patient denies any pain. He endorses a history of a PE, anxiety, alcoholism, and a TIA. Patient reports he has not drank alcohol in 7 months. He reports he had been increasing his exercise and ?feeling good but now has no energy. Patient denies any chest pain, shortness of breath, neck pain, recent falls, or recent fevers. Related Data Home Medications ?Medication ?Instructions ?Recorded ?Confirmed ?Last Taken ?Type aspirin 325 mg tablet 325 mg PO DAILY 08/01/20 02/08/25 Unknown History levetiracetam 1,000 mg tablet 1,000 mg PO Q12H 11/14/24 02/08/25 Unknown History (Keppra) levetiracetam 500 mg 1,500 mg PO DAILY 02/08/25 02/08/25 Unknown History tablet,extended release 24 hr (Keppra XR) Allergies Allergy/AdvReac Type Severity Reaction Status Date / Time No Known Allergies Allergy Verified 02/19/25 17:42 Review of Systems 2 Review of Systems: All systems reviewed & are unremarkable except as noted in HPI and below [facility] Past Medical History Medical History BMI 26.0-26.9,adult BMI 27.0-27.9,adult COVID-19 BMI 28.0-28.9,adult Neuropathy due to herpes zoster Screen for colon cancer Left elbow pain Anemia BMI 29.0-29.9,adult Hypothyroidism Anxiety and depression Poor sleep Visual blurriness Obstructive sleep apnea Irritation of left eye Palpitations Broken femur Pulmonary embolism Anxiety Cerebrovascular accident (CVA) Dizziness Elevated cholesterol Hypothyroidism, unspecified Sleep apnea in adult Tachycardia Surgical History Surgical History Hx of LASIK History of open reduction and internal fixation (ORIF) procedure Left femur at the age of 6 H/O vasectomy Family History Family History Mother Diabetes mellitus Acute myocardial infarction Thyroid cancer Cerebrovascular accident Father Acute myocardial infarction Bladder cancer Chronic emphysema syndrome Sibling COVID-19 Grandparent Cancer Grandparent Cancer Social History Social History Social History: The patient is and he has 2 children. One is 16 in the other 1 is 20. The patient works in [employer]. 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 He states that he drinks socially and is very sociable. He could not quantify how much she drinks and when he drinks. He stated that he use marijuana maybe 6 times in his whole life time. He denies using illicit drugs. He does not have a durable power animal park code enforcement officer for healthcare. He is a full code. He isn't nonsmoker. 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; formerly heavy drinker Substance use: former Substance use type: marijuana Do You Feel Safe in your Home?: Yes Lack of Transportation: No Lack of Food: Never True Current Housing: Decline to Answer Concerned About Future Housing: Decline to Answer Difficulty Paying Gas/Electric Bills: Decline to Answer Difficulty Paying for Meds: Decline to Answer Currently Unemployed: Decline to Answer Education: Decline to Answer Difficulty w/ Childcare or Family Care: Decline to Answer Living arrangements: alone Occupation/Education: occupation 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 HEAD: Normocephalic, atraumatic. NECK: Supple. No adenopathy, no masses. RESPIRATORY: Airway patent, respirations nonlabored. Clear to auscultation bilaterally, no rales, rhonchi, wheezing. CARDIOVASCULAR: Regular rate and rhythm without murmurs, rubs, or gallops. Peripheral pulses 2+ and equal bilaterally. ABDOMINAL: Soft, nontender, nondistended, no hepatosplenomegaly. Normoactive BS. MUSCULOSKELETAL: Moves all extremities. Strength/ROM intact without gross deformities. SKIN: Warm, dry, normal color. No rashes. NEURO: A&O X3. Speech clear. Cranial nerves II-XII intact. No ataxic movements. PSYCHIATRIC: Appropriate mood and affect. Normal interaction. Course Vital Signs Vital signs: Vital Signs Temperature 36.7 C 02/19/25 17:46 Pulse Rate 68 02/19/25 17:46 Respiratory Rate 16 02/19/25 17:46 Blood Pressure 143/104 H 02/19/25 17:46 Pulse Oximetry 99 02/19/25 17:46 Oxygen Delivery Room Air 02/19/25 17:46 Temperature 36.7 C 02/19/25 17:46 Pulse Rate 70 02/19/25 19:54 Respiratory Rate 17 02/19/25 19:54 Blood Pressure 127/92 H 02/19/25 19:54 Pulse Oximetry 99 02/19/25 19:54 Oxygen Delivery Room Air 02/19/25 17:46 Medical Decision Making MDM Narrative Medical decision making narrative: Patient is a 54-year-old male her to the ER with complaints numbness in his extremities, dizziness, vertigo and decreased energy. He reports he recently saw a neurologist who took him off of his Cymbalta and put him on Paxil and Zoloft instead. Patient reports he was having terrible side effects from going off the Cymbalta so his primary care provider restarted him on it evening. He reports since then he has had an increase in the symptoms that he believes are related to side effects of the Cymbalta. Patient denies any pain. He endorses a history of a PE, anxiety, alcoholism, and a TIA. Patient reports he has not drank alcohol in 7 months. He reports he had been increasing his exercise and ?feeling good but now has no energy. Patient denies any chest pain, shortness of breath, neck pain, recent falls, or recent fevers. Labs Ordered: CBC, CMP, UA, TSH, UDS Imaging Ordered: CT brain Medications Ordered: None necessary Results: Patient's CBC indicates the red blood cell count of 4.28, hemoglobin of 13.3, hematocrit of 39.0%. His chemistry indicates a sodium of 136, BUN of 26, creatinine of 1.4, and GFR 53. Patient's TSH is 0.555. His urinalysis indicates no acute abnormalities. Patient's UDS is negative for any illicit drugs. Diagnosis: mild dehydration Patient Education/Shared MDM: Results of lab work and imaging shared with patient. Patient strongly advised to maintain hydration status upon discharge and follow-up with his PCP as soon as possible. He will be discharged home with no new prescriptions. Strict return precautions provided. Patient verbalized understanding and is in agreement with plan. Vital signs stable at time of discharge. All questions answered. Vital Signs Vital Signs: Vital Signs Temperature 36.7 C 02/19/25 17:46 Pulse Rate 68 02/19/25 17:46 Respiratory Rate 16 02/19/25 17:46 Blood Pressure 143/104 H 02/19/25 17:46 Pulse Oximetry 99 02/19/25 17:46 Oxygen Delivery Room Air 02/19/25 17:46 Temperature 36.7 C 02/19/25 17:46 Pulse Rate 70 02/19/25 19:54 Respiratory Rate 17 02/19/25 19:54 Blood Pressure 127/92 H 02/19/25 19:54 Pulse Oximetry 99 02/19/25 19:54 Oxygen Delivery Room Air 02/19/25 17:46 Lab Data Lab results reviewed: Yes I reviewed the patient's lab results. 02/19/25 18:16 02/19/25 18:16 Labs: Lab Results 02/19/25 02/19/25 Range/Units 18:16 18:20 WBC 7.6 (4.5-10.0) K/mm3 RBC 4.28 L (4.6-6.20) M/mm3 Hgb 13.3 L (14.0-18.0) g/dL Hct 39.0 L (42.0-52.0) % MCV 91.1 (80-100) fl MCH 31.1 (26-34) pg MCHC 34.1 (32-36) g/dl RDW 12.3 (11.5-14.5) % Plt Count 156 (150-375) k/mm3 MPV 9.4 (7.4-10.4) fl Immature Gran % (Auto) 0.4 (0-0.5) % Neut % (Auto) 59.6 (45.5-73.1) % Lymph % (Auto) 29.3 (18.3-44.2) % [place] % (Auto) 6.0 (2.6-8.5) % Eos % (Auto) 3.5 (0-4.4) % Baso % (Auto) 1.2 (0.2-1.2) % Lymph # (Auto) 2.23 (0.9-3.2) K/mm3 [place] # (Auto) 0.5 (0.1-0.6) K/mm3 Eos # (Auto) 0.3 (0-0.3) K/mm3 Baso # (Auto) 0.1 (0.0-0.1) K/mm3 Abs Immat Gran (auto) 0.03 (0.00-0.031) K/mm3 Absolute Neuts (auto) 4.5 (1.3-6.7) K/mm3 Absolute Nucleated RBC 0.000 (0.0-0.012) K/mm3 Nucleated RBC % 0.0 (0.0-0.2) % % Immature Plt Fraction 2.6 (0.9-11.2) % Sodium 136 L (137-145) mmol/L Potassium 4.1 (3.4-5.0) mmol/L Chloride 105 (98-107) mmol/L Carbon Dioxide 23 (22-30) mmol/L Anion Gap 8 (4-12) mmol/L BUN 26 H (9-20) mg/dL Creatinine 1.40 H (0.7-1.3) mg/dL Estim Creat Clear Calc 65 ml/min Estimated GFR 53 L (59 - ) Glucose 96 (65-110) mg/dL Calcium 9.2 (8.4-10.2) mg/dL Total Bilirubin 0.4 (0.2-1.3) mg/dL AST 27 (17-59) U/L ALT 22 (6-50) U/L Alkaline Phosphatase 80 (38-126) U/L Total Protein 7.9 (6.3-8.2) g/dL Albumin 4.6 (3.5-5.1) g/dL TSH 0.555 (0.465-4.680) uIU/mL Urine Color Yellow (Yellow) Urine Appearance Clear (Clear) Urine pH 6.0 (5.0-9.0) Ur Specific [place] 1.007 (1.001-1.035) Urine Protein Negative (Negative) mg/dL Urine Glucose (UA) Negative (Negative) mg/dL Urine Ketones Negative (Negative) mg/dL Ur Blood (Man) Negative (Negative) Urine Nitrate Negative (Negative) Urine Bilirubin Negative (Negative) Urine Urobilinogen 0.2 (<2.0) mg/dL Leukocyte Esterase Rfl Negative (Negative) JAMA/UL Urine Opiates Screen Negative (Negative) Urine Methadone Screen Negative (Negative) Ur Barbiturates Screen Negative (Negative) Ur Phencyclidine Scrn Negative (Negative) Ur Amphetamine Screen Negative (Negative) U Benzodiazepines Scrn Negative (Negative) Urine Cocaine Screen Negative (Negative) U Cannabinoids Screen Negative (Negative) Imaging Data Attestation: I personally reviewed and interpreted this imaging study as follows: Radiologist's impression: Impressions Head CT 02/19/25 19:02 IMPRESSION: No acute intracranial findings. Discharge Plan Discharge Clinical Impression: Dizziness, Headache, Weakness generalized Patient Disposition: Home Condition: Stable Instructions: Antibiotic Form Additional Instructions: Please return to the ER with any worsening symptoms. Follow-up with primary care provider as soon as possible. Take all medications as prescribed, including regularly scheduled medications. Patient Language: Chinese Prescriptions: No Action levetiracetam [Keppra] 1,000 mg tablet 1,000 mg PO Q12H levetiracetam [Keppra XR] 500 mg tablet extended release 24 hr 1,500 mg PO DAILY levothyroxine [Euthyrox] 150 mcg tablet 150 mcg PO DAILY Qty: 90 1RF aspirin 325 mg Tablet 325 mg PO DAILY alprazolam 0.25 mg tablet 0.25 mg PO TID PRN (Reason: anxiety) Qty: 40 1RF (DME) CPAP machine and supplies See Rx Instructions .Route .MEDSUPPLY Qty: 1 0RF Rx Instructions: CPAP machine, pressure settings 4-20. Nasal pillows mask, new tubing, new reservoir. Length of need 99+, DX: obstructive sleep apnea. rosuvastatin [Crestor] 10 mg tablet 10 mg PO DAILY Qty: 90 1RF rosuvastatin [Crestor] 5 mg tablet 5 mg PO DAILY Qty: 90 1RF duloxetine 30 mg capsule,delayed release(DR/EC) 30 mg PO DAILY Qty: 180 1RF Rx Instructions: start taking 1 cap daily for 2 weeks then can increase to 2 caps daily Follow-up/Referrals: Emi Julio, SULPHATE TESTER-C [Primary Care Provider] - Stand Alone Forms: Work/School Release IP Time of Disposition: 20:35
[2025-02-19 18:25] LABS: Basophils Absolute Auto 0.1 K/mm3 (0.0-0.1); Basophils Percent Auto 1.2 % (0.2-1.2); Eosinophils Absolute Auto 0.3 K/mm3 (0-0.3); Eosinophils Percent Auto 3.5 % (0-4.4); Hemoglobin 13.3 g/dL (14.0-18.0); Immature Granulocyte Absolute 0.03 K/mm3 (0.00-0.031); Immature Granulocyte Percent A 0.4 % (0-0.5); Immature Platelet Fraction Pct 2.6 % (0.9-11.2); Lymphocytes Absolute Auto 2.23 K/mm3 (0.9-3.2); Lymphocytes Percent Auto 29.3 % (18.3-44.2); Mean Corpuscular HGB Conc 34.1 g/dl (32-36); Mean Corpuscular Hemoglobin 31.1 pg (26-34); Mean Corpuscular Volume 91.1 fl (80-100); Mean Platelet Volume 9.4 fl (7.4-10.4); Monocytes Absolute Auto 0.5 K/mm3 (0.1-0.6); Neutrophils Absolute Auto 4.5 K/mm3 (1.3-6.7); Neutrophils Percent Auto 59.6 % (45.5-73.1); Platelet Count Result 156 k/mm3 (150-375); Red Blood Count 4.28 M/mm3 (4.6-6.20); Red Cell Distribution Width 12.3 % (11.5-14.5); White Blood Count 7.6 K/mm3 (4.5-10.0)
[2025-02-19 18:35] LABS: Alanine Aminotransferase 22 U/L (6-50); Albumin Level 4.6 g/dL (3.5-5.1); Alkaline Phosphatase 80 U/L (38-126); Anion Gap 8 mmol/L (4-12); Aspartate Amino Transferase 27 U/L (17-59); Bilirubin,Total 0.4 mg/dL (0.2-1.3); Blood Urea Nitrogen 26 mg/dL (9-20); Calcium 9.2 mg/dL (8.4-10.2); Carbon Dioxide 23 mmol/L (22-30); Chloride 105 mmol/L (98-107); Estimated CRCL calculation 65 ml/min; Estimated Glomerular Filt Rate 53; Glucose 96 mg/dL (65-110); Potassium 4.1 mmol/L (3.4-5.0); Sodium 136 mmol/L (137-145); Total Protein 7.9 g/dL (6.3-8.2)
[2025-02-19 18:44] LABS: Add Urine Microscopic? NO; Appearance Urine Clear (Clear); Bilirubin Urine Negative (Negative); Blood Urine Negative (Negative); Color Urine Yellow (Yellow); Glucose Urine UA Negative (Negative); Ketones Urine Negative (Negative); Leukocyte Esterase Ur Negative LEU/UL (Negative); Nitrate Urine Negative (Negative); Protein Urine Negative (Negative); Specific Grav Ur 1.007 (1.001-1.035); Urobilinogen Urine 0.2 mg/dL (<2.0)
[2025-02-19 18:52] LABS: Amphetamine Screen Urine Negative (Negative); Barbiturate Screen Urine Negative (Negative); Benzodiazepines Screen Urine Negative (Negative); Cannabinoid Screen Urine Negative (Negative); Cocaine Screen Urine Negative (Negative); Methadone Screen Urine Negative (Negative); Opiate Screen Urine Negative (Negative); Phencyclidine Screen Urine Negative (Negative)
[2025-02-19 19:06] LABS: Thyroid Stimulating Hormone 0.555 uIU/mL (0.465-4.680)
[2025-02-19 19:54] VITALS: BP 127/92; PULSE 70; RESP 17; O2SAT 99
[2025-02-19] MEDS: SODIUM CHLORIDE 0.9% IV 1,000 ML 999 ML IV CONT (20:09)
[2025-02-19 21:08] VITALS: BP 130/89; PULSE 73; RESP 14; O2SAT 99
[2025-02-19 21:09] VITALS: BP 130/89; PULSE 73; RESP 14; O2SAT 99
== END 2025-02-19 21:10 | disposition home or self-care (01) ==
PROVIDERS: Emergency Provider Registered Nurse; PCP Nurse Practitioner Family
DX: R42 Dizziness and giddiness (principal); R51.9 Headache, unspecified; R53.1 Weakness; E03.9 Hypothyroidism, unspecified; Z79.899 Other long term (current) drug therapy; Z86.73 Personal history of transient ischemic attack (TIA), and cerebral infarction without residual deficits
CPT/HCPCS: 36415; 70450; 80053; 80307; 81003; 84443; 85025; 85055; 93005; 96360; 99284; J7030

== ENCOUNTER 2025-03-01 17:59 | Emergency (ER) | payer OTHER, SELFPAY ==
[2025-03-01 18:11] VITALS: BP 138/81; PULSE 38; RESP 20; TEMP 36.9; O2SAT 100
--- NOTE | 2025-03-01 18:11 | ECG_ITS ---
Test Date: 2025-03-01 18:19:18 Measurements Intervals [place] Rate: 87 P: 31 [place]: 171 QRS: -31 QRSD: 96 T: 23 QT: 356 QTc: 430 Interpretive Statements SINUS RHYTHM WITH FREQUENT VENTRICULAR PREMATURE COMPLEXES LEFT AXIS DEVIATION DELAYED PRECORDIAL R/S TRANSITION MINIMAL Q WAVES- HIGH LATERAL LEADS BASELINE WANDER- II, AVR, AVF, V3-V6 ABNORMAL ECG Compared to ECG 02/19/2025 18:24:59 No significant changes Electronically Signed On 03-01-2025 20:38:55 CDT by Christian Maurice D.O.
--- NOTE | 2025-03-01 18:12 | ED_ITS ---
HPI - Psych General Chief Complaint: Psychiatric Symptoms <Hilda Canales PA-C - Last Filed: 03/01/25 18:14> Stated Complaint: hopeless, depressed <Hilda Canales PA-C - Last Filed: 03/01/25 18:14> Time Seen by Provider: 03/01/25 18:16 <Hilda Canales PA-C - Last Filed: 03/01/25 18:14> Focused HPI: 54-year-old male with reported history of seizure disorder, thyroid disease, depression and anxiety presents emergency department for suicidal ideation. Patient states over the past several months he has had increasing depression and anxiety. States he was on duloxetine for while and then his neurologist discontinued his duloxetine 8 months ago without tapering him and since then his symptoms have been difficult to manage. He states he has been tried on several different SSRIs and most recently to convince his PCP to place him back on duloxetine. He states he was on the duloxetine again for a bout 4-5 days when he discontinued it again because he was having numbness and tingling in his extremities which seems to happen with each SSRI trials. He states today he was outside playing golf and when he got home he could not stop crying. He endorses thoughts of suicide but states he has no plan to kill himself and would never kill himself because of his family. He denies HI or hallucinations. Admits to marijuana use. Denies other drug or alcohol use. GENERAL: Anxious-appearing, well-nourished, and in no acute distress. Tearful HEAD: Normocephalic, atraumatic. CHEST: Clear to auscultation. ?No respiratory distress. HEART: Regular rate and rhythm.? NEURO: ?Alert and oriented x3. Patient screened in triage and initial orders placed.? ?Additional care and disposition to be based upon?diagnostic testing and treatment. <Hilda Canales PA-C - Last Filed: 03/01/25 18:14> History of Present Illness HPI Narrative: 54-year-old male with a history of anxiety who is been having issues for last 6 months as his psychiatric medications have been changed by his primary care provider and his neurologist.. Patient told provider in triage that he was having thoughts of suicide but those were remote thoughts in the past but he is not currently suicidal. He has no desire to harm himself. No HI. No psychosis. He is seeking help as he is having increased anxiety and he does not know what to do. <David Vera MD - Last Filed: 03/01/25 18:43> Related Data Home Medications: Home Medications ?Medication ?Instructions ?Recorded ?Confirmed ?Last Taken ?Type aspirin 325 mg tablet 325 mg PO DAILY 08/01/20 02/08/25 Unknown History levetiracetam 1,000 mg tablet 1,000 mg PO Q12H 11/14/24 02/08/25 Unknown History (Keppra) levetiracetam 500 mg 1,500 mg PO DAILY 02/08/25 02/08/25 Unknown History tablet,extended release 24 hr (Keppra XR) <Hilda Canales PA-C - Last Filed: 03/01/25 18:14> Allergies/Adverse Reactions: Allergies Allergy/AdvReac Type Severity Reaction Status Date / Time No Known Allergies Allergy Verified 03/01/25 18:21 <Hilda Canales PA-C - Last Filed: 03/01/25 18:14> [facility] Past Medical History Medical History: Medical History BMI 26.0-26.9,adult BMI 27.0-27.9,adult COVID-19 BMI 28.0-28.9,adult Neuropathy due to herpes zoster Screen for colon cancer Left elbow pain Anemia BMI 29.0-29.9,adult Hypothyroidism Anxiety and depression Poor sleep Visual blurriness Obstructive sleep apnea Irritation of left eye Palpitations Broken femur Pulmonary embolism Anxiety Cerebrovascular accident (CVA) Dizziness Elevated cholesterol Hypothyroidism, unspecified Sleep apnea in adult Tachycardia <Hilda Canales PA-C - Last Filed: 03/01/25 18:14> Surgical History Surgical History: Surgical History Hx of MELIK History of open reduction and internal fixation (ORIF) procedure Left femur at the age of 6 H/O vasectomy <Hilda Canales PA-C - Last Filed: 03/01/25 18:14> Family History Family History: Family History Mother Diabetes mellitus Acute myocardial infarction Thyroid cancer Cerebrovascular accident Father Acute myocardial infarction Bladder cancer Chronic emphysema syndrome Sibling COVID-19 Grandparent Cancer Grandparent Cancer <Hilda Canales PA-C - Last Filed: 03/01/25 18:14> Social History Social History: Social History Social History: The patient is and he has 2 children. One is 16 in the other 1 is 20. 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 He states that he drinks socially and is very sociable. He could not quantify how much she drinks and when he drinks. He stated that he use marijuana maybe 6 times in his whole life time. He denies using illicit drugs. He does not have a durable power workers compensation defense attorney for healthcare. He is a full code. He isn't nonsmoker. 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; formerly heavy drinker Substance use: former Substance use type: does not use Do You Feel Safe in your Home?: Yes Lack of Transportation: No Lack of Food: Never True Current Housing: Decline to Answer Concerned About Future Housing: Decline to Answer Difficulty Paying Gas/Electric Bills: Decline to Answer Difficulty Paying for Meds: Decline to Answer Currently Unemployed: Decline to Answer Education: Decline to Answer Difficulty w/ Childcare or Family Care: Decline to Answer Living arrangements: alone Occupation/Education: occupation Additional occupation/education comments: [employer] Gender identity (if verbalized by the patient): Male Sexual Orientation (if Verbalized by the Patient): Straight or Heterosexual Spiritual care concerns: No <Hilda Canales PA-C - Last Filed: 03/01/25 18:14> Exam Narrative: APPEARANCE: Patient is tearful Head: atraumatic. EYES: EOMI, NOSE: Atraumatic NECK: Trachea midline RESPIRATORY: No increased rate of breathing clear to auscultation CARDIOVASCULAR: RRR, no peripheral edema ABDOMINAL: Non-distended soft nontender MUSCULOSKELETAl: No obvious deformities NEURO: Alert. Moving 4/4 extremities SKIN:: Warm, dry. Normal color PSYCHIATRIC: Normal affect <David Vera MD - Last Filed: 03/01/25 18:43> Course Vital Signs Vital signs: Vital Signs Temperature 98.5 F 03/01/25 18:11 Pulse Rate 38 L 03/01/25 18:11 Respiratory Rate 20 03/01/25 18:11 Blood Pressure 138/81 03/01/25 18:11 Pulse Oximetry 100 03/01/25 18:11 Oxygen Delivery Room Air 03/01/25 18:11 Temperature 98 F 03/01/25 18:14 Pulse Rate 88 03/01/25 18:14 Respiratory Rate 15 03/01/25 18:14 Blood Pressure 115/81 03/01/25 18:14 Pulse Oximetry 99 03/01/25 18:14 Oxygen Delivery Room Air 03/01/25 18:14 <Hilda Canales PA-C - Last Filed: 03/01/25 18:14> Vital Signs Temperature 98.5 F 03/01/25 18:11 Pulse Rate 38 L 03/01/25 18:11 Respiratory Rate 20 03/01/25 18:11 Blood Pressure 138/81 03/01/25 18:11 Pulse Oximetry 100 03/01/25 18:11 Oxygen Delivery Room Air 03/01/25 18:11 Temperature 98 F 03/01/25 18:14 Pulse Rate 88 03/01/25 18:14 Respiratory Rate 15 03/01/25 18:14 Blood Pressure 115/81 03/01/25 18:14 Pulse Oximetry 99 03/01/25 18:14 Oxygen Delivery Room Air 03/01/25 18:14 <David Vera MD - Last Filed: 03/01/25 18:43> MDM - Psych MDM Narrative Medical decision making narrative: -Course: 54-year-old male with uncontrolled anxiety presenting with anxiety and depression. Patient is not suicidal homicidal or psychotic. I sat and discussed his symptoms with him at length and he needs to follow up with his primary care physician or possibly a psychiatrist/psychologist. I have given him a referral to chest not mental health. He was given 5 mg of Valium for his acute anxiety. Patient will be discharged to follow-up on an outpatient basis. Given return precautions for SI or HI. -DDX includes but is not limited to: Depression, anxiety <David Vera MD - Last Filed: 03/01/25 18:43> Discharge Plan Discharge Clinical Impression: Anxiety, Depression <Hilda Canales PA-C - Last Filed: 03/01/25 18:14> Patient Disposition: Home <Hilda Canales PA-C - Last Filed: 03/01/25 18:14> Condition: Stable <JUAREZ Cheung Last Filed: 03/01/25 18:14> Instructions: Antibiotic Form, Anxiety (ED) <JUAREZ Cheung Last Filed: 03/01/25 18:14> Additional Instructions: Please follow[facility]up at [facility] mental health and with your primary care physician for further management. If you develop thoughts of harming herself or others please return to the ED for re-evaluation <Hilda Canales PA-C - Last Filed: 03/01/25 18:14> Patient Language: Kosovan <JUAREZ Cehung Last Filed: 03/01/25 18:14> Prescriptions: No Action levetiracetam [Keppra] 1,000 mg tablet 1,000 mg PO Q12H levetiracetam [Keppra XR] 500 mg tablet extended release 24 hr 1,500 mg PO DAILY levothyroxine [Euthyrox] 150 mcg tablet 150 mcg PO DAILY Qty: 90 1RF aspirin 325 mg Tablet 325 mg PO DAILY alprazolam 0.25 mg tablet 0.25 mg PO TID PRN (Reason: anxiety) Qty: 40 1RF (DME) CPAP machine and supplies See Rx Instructions .Route .MEDSUPPLY Qty: 1 0RF Rx Instructions: CPAP machine, pressure settings 4-20. Nasal pillows mask, new tubing, new res ervoir. Length of need 99+, DX: obstructive sleep apnea. rosuvastatin [Crestor] 10 mg tablet 10 mg PO DAILY Qty: 90 1RF rosuvastatin [Crestor] 5 mg tablet 5 mg PO DAILY Qty: 90 1RF duloxetine 30 mg capsule,delayed release(DR/EC) 30 mg PO DAILY Qty: 180 1RF Rx Instructions: start taking 1 cap daily for 2 weeks then can increase to 2 caps daily <Hilda Canales PA-C - Last Filed: 03/01/25 18:14> Follow-up/Referrals: Emi Julio, PLANER OPERATOR / GRADER-C [Primary Care Provider] - 3 Days (Anxiety) <Hilda Canales PA-C - Last Filed: 03/01/25 18:14>
[2025-03-01 18:14] VITALS: BP 115/81; PULSE 88; RESP 15; TEMP 36.6; O2SAT 99
[2025-03-01 18:39] VITALS: BP 129/79; PULSE 91; RESP 16; O2SAT 96
[2025-03-01] MEDS: diazePAM INJ (*CRX) 10 MG/2 ML SYRINGE 5 MG IM (18:59)
[2025-03-01 19:05] VITALS: BP 115/62; PULSE 88; RESP 20; O2SAT 98
== END 2025-03-01 19:06 | disposition home or self-care (01) ==
LOC: ANHED 18:48
PROVIDERS: Emergency Provider Emergency Medicine; PCP Nurse Practitioner Family
DX: F41.8 Other specified anxiety disorders (principal); G40.909 Epilepsy, unspecified, not intractable, without status epilepticus; E07.9 Disorder of thyroid, unspecified; Z79.82 Long term (current) use of aspirin; E03.9 Hypothyroidism, unspecified; G47.33 Obstructive sleep apnea (adult) (pediatric)
CPT/HCPCS: 93005; 96372; 99283; J3360

== ENCOUNTER 2025-04-02 13:41 | Emergency (ER) | payer OTHER, SELFPAY ==
[2025-04-02 13:51] VITALS: BP 121/83; PULSE 56; RESP 16; TEMP 36.6; O2SAT 100
--- NOTE | 2025-04-02 13:58 | ECG_ITS ---
Test Date: 2025-04-02 14:07:36 Measurements Intervals [place] Rate: 73 P: 21 MT: 166 QRS: -28 QRSD: 83 T: 26 QT: 376 QTc: 415 Interpretive Statements SINUS RHYTHM WITH OCCASIONAL VENTRICULAR PREMATURE COMPLEXES BORDERLINE LEFT AXIS DEVIATION [QRS AXIS < -20] NONSPECIFIC T-WAVE ABNORMALITY Compared to ECG 03/01/2025 18:19:18 NO SIGNIFICANT CHANGES Electronically Signed On 04-02-2025 17:07:57 CDT by Brandi Emerson M.D.
--- NOTE | 2025-04-02 14:02 | ED.ANXIETY ---
HPI - Anxiety General Chief Complaint: Anxiety <Norma Macdonald, CRANKSHAFT GRINDER - Last Filed: 04/02/25 14:07> Stated Complaint: nervous breakdown <Norma Macdonald APRN - Last Filed: 04/02/25 14:07> Time Seen by Provider: 04/02/25 14:00 <Norma Macdonald CRANKSHAFT GRINDER - Last Filed: 04/02/25 14:07> Focused HPI: Patient is a 54-year-old male her to the ER with complaints of anxiety. He reports in February he saw a neurologist who took him off of his Cymbalta and put him on Paxil and Zoloft instead. Patient reports he was having terrible side effects from going off the Cymbalta so his primary care provider restarted him on it. He endorses significant feelings of anxiety at this time and reports I can't go on like this! The anxiety is just too much and I need help. Patient denies any pain. He endorses a history of a PE, anxiety, alcoholism, and a TIA. Patient reports he has not drank alcohol in 8 months. He denies any chest pain, shortness of breath, neck pain, recent falls, or recent fevers. GENERAL: Well-appearing, well-nourished, and in no acute distress. HEAD: Normocephalic, atraumatic. CHEST: Clear to auscultation. ?No respiratory distress. HEART: Regular rate and rhythm.? NEURO: ?Alert and oriented x3. Patient screened in triage and initial orders placed.? ?Additional care and disposition to be based upon?diagnostic testing and treatment. <Norma Macdonald APRN - Last Filed: 04/02/25 14:07> History of Present Illness HPI narrative: Agree with the above with the following additions/corrections: Patient had 2 seizures last fall, one after several days of heavy drinking during a golf trip and the other after several days of not drinking alcohol. He has since maintained sobriety for 8 months, nearly 9. In his follow up appointment with neurologist Dr Cagle, he states he was placed on Keppra who immediately discontinued his Cymbalta, a medication he had been taking for 4-5 years for anxiety. When this change happened abruptly, patient states he has had significant issues and worsening of his anxiety. He has since also become depressed which had not been as prominent a feature in his mental health. He has an appointment with Dr Cagle tomorrow and is very frustrated by the medication change that was made. It has significantly affected his quality of life as he has become tearful throughout the day and this has caused him to be placed on a leave from work. He is worried about losing his job as a result. He is also worried about his mental health. States he would not harm himself because he wants to be there for his 2 boys, ages 21 and 25 yo. He is feeling like he can't enjoy life but otherwise says he is grateful. In the process of subsequently trying to adjust his anxiety medications, he was trialed on Welbutrin and then briefly placed back on duloxetine but this causesd dizziness/numbness/weakness. He has now been switched to sertraline, first 25mg then 50mg. He is not finding it as effective as the Cymbalta he was previously on. He doesn't know what to do as he believes his seizures were likely alcohol related and is unsure if he even needs to be on an antiepileptic; or, if he does, wondering if Keppra is the best choice due to the fact that it means he can't be on a medication he found effective for other health/mental health needs. He states he has talked to various health care personnel informally about this, including his brother Prince who is the president/involved in administration at [employer]. <Noemy Reyes MD - Last Filed: 04/03/25 07:58> Related Data Home Medications: Home Medications ?Medication ?Instructions ?Recorded ?Confirmed ?Last Taken ?Type aspirin 325 mg tablet 325 mg PO DAILY 08/01/20 02/08/25 Unknown History levetiracetam 1,000 mg tablet 1,000 mg PO Q12H 11/14/24 02/08/25 Unknown History (Keppra) levetiracetam 500 mg 1,500 mg PO DAILY 02/08/25 02/08/25 Unknown History tablet,extended release 24 hr (Keppra XR) <Norma Macdonald APRN - Last Filed: 04/02/25 14:07> Allergies/Adverse Reactions: Allergies Allergy/AdvReac Type Severity Reaction Status Date / Time No Known Allergies Allergy Verified 03/01/25 18:21 <Norma Macdonald, CRANKSHAFT GRINDER - Last Filed: 04/02/25 14:07> [facility] Past Medical History Medical History: Medical History BMI 26.0-26.9,adult BMI 27.0-27.9,adult COVID-19 BMI 28.0-28.9,adult Neuropathy due to herpes zoster Screen for colon cancer Left elbow pain Anemia BMI 29.0-29.9,adult Hypothyroidism Anxiety and depression Poor sleep Visual blurriness Obstructive sleep apnea Irritation of left eye Palpitations Broken femur Pulmonary embolism Anxiety Cerebrovascular accident (CVA) Dizziness Elevated cholesterol Hypothyroidism, unspecified Sleep apnea in adult Tachycardia <Norma Macdonald, CRANKSHAFT GRINDER - Last Filed: 04/02/25 14:07> Surgical History Surgical History: Surgical History Hx of MELIK History of open reduction and internal fixation (ORIF) procedure Left femur at the age of 6 H/O vasectomy <Norma Macdonald, CRANKSHAFT GRINDER - Last Filed: 04/02/25 14:07> Family History Family History: Family History Mother Diabetes mellitus Acute myocardial infarction Thyroid cancer Cerebrovascular accident Father Acute myocardial infarction Bladder cancer Chronic emphysema syndrome Sibling COVID-19 Grandparent Cancer Grandparent Cancer <Norma Macdonald, CRANKSHAFT GRINDER - Last Filed: 04/02/25 14:07> Social History Social History: Social History Social History: The patient is and he has 2 children. One is 16 in the other 1 is 20. 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 He states that he drinks socially and is very sociable. He could not quantify how much she drinks and when he drinks. He stated that he use marijuana maybe 6 times in his whole life time. He denies using illicit drugs. He does not have a durable power deputy attorney general for healthcare. He is a full code. He isn't nonsmoker. 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; formerly heavy drinker Substance use: former Substance use type: marijuana Do You Feel Safe in your Home?: Yes Lack of Transportation: No Lack of Food: Never True Current Housing: Decline to Answer Concerned About Future Housing: Decline to Answer Difficulty Paying Gas/Electric Bills: Decline to Answer Difficulty Paying for Meds: Decline to Answer Currently Unemployed: Decline to Answer Education: Decline to Answer Difficulty w/ Childcare or Family Care: Decline to Answer Living arrangements: alone Occupation/Education: occupation 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 HEAD: Normocephalic, atraumatic. EYES: Non injected, non icteric ENT: Nares clear, no rhinorrhea or epistaxis. Gross auditory acuity intact. NECK: Supple. No meningismus. CHEST: Speaking in full sentences. No respiratory distress. HEART: Regular/possibly intermittent chetan rate and rhythm. . ABDOMEN: Soft, nondistended. EXTREMITIES: Normal range of motion. SKIN: Warm, dry, no rash. NEURO: No focal deficits. Alert and oriented. Answering questions. Following commands. Normal speech without aphasia or dysarthria. PSYCH: Congruent mood and affect. Linear thought process. Good judgment and insight. Initially poor eye contact but improved during conversation. Expressed frustration and concern. Describes mood as both anxious and depressed. Engaged in health care decisions/conversation. Good hygiene, well groomed. Denies SI. Does not appear to be responding to internal stimuli. <Noemy Reyes MD - Last Filed: 04/03/25 07:58> Course Vital Signs Vital signs: Vital Signs Temperature 97.8 F 04/02/25 13:51 Pulse Rate 56 L 04/02/25 13:51 Respiratory Rate 16 04/02/25 13:51 Blood Pressure 121/83 04/02/25 13:51 Pulse Oximetry 100 04/02/25 13:51 Oxygen Delivery Room Air 04/02/25 13:51 Temperature 97.8 F 04/02/25 13:51 Pulse Rate 68 04/02/25 19:16 Respiratory Rate 15 04/02/25 19:16 Blood Pressure 124/80 04/02/25 19:16 Pulse Oximetry 98 04/02/25 19:16 Oxygen Delivery Room Air 04/02/25 13:51 <Norma Macdonald APRN - Last Filed: 04/02/25 14:07> Vital Signs Temperature 97.8 F 04/02/25 13:51 Pulse Rate 56 L 04/02/25 13:51 Respiratory Rate 16 04/02/25 13:51 Blood Pressure 121/83 04/02/25 13:51 Pulse Oximetry 100 04/02/25 13:51 Oxygen Delivery Room Air 04/02/25 13:51 Temperature 97.8 F 04/02/25 13:51 Pulse Rate 68 04/02/25 19:16 Respiratory Rate 15 04/02/25 19:16 Blood Pressure 124/80 04/02/25 19:16 Pulse Oximetry 98 04/02/25 19:16 Oxygen Delivery Room Air 04/02/25 13:51 <Noemy Reyes MD - Last Filed: 04/03/25 07:58> MDM - Anxiety MDM Narrative Medical decision making narrative: Patient presents with concerns for his anxiety and now, depression. He believes this is due to discontinuation of his Cymbalta, a medication he had been on for 4-5 years previously without issue but which was discontinued when he was placed on Keppra for seizures (both of which occurred related to alcohol use/withdrawl, per patient). In the emergency department he is afebrile with vital signs notable for mild bradycardia. Normocytic anemia stable from previous. Patient appears to have an ORLY. He is otherwise able to tolerate PO and in fact requesting water which is given. Advised RN provide him more water and she verifies understanding. Otherwise, patient is calm, appropriate, very engaged in care and, although frustrated, seeking help for what to do/how to proceed. He is offered psych/crisis counseling evaluation and, although he is amenable, he is able to articulate that if we have additional resources, he would accept them but in general he feels good with the care he is receiving for his mental health with his current provider/team. He is concerned that he has an appointment with Dr Cagle already scheduled for tomorrow and he wants to be able to address his worries that the discontinuation of the Cymbalta in favor of the intiaition of the Keppra has not been beneficial and has been detrimental. I did discuss with special education preschool teacher neurologist Dr Lee who will discuss with Dr Cagle tomorrow morning to give him a heads up before patient's appointment that patient wants to address this concern during the appointment. Strongly advises patient keep this appointment Patient otherwise stable for discharge. <Noemy Reyes MD - Last Filed: 04/03/25 07:58> Differential Diagnosis Differential diagnosis: Likely other (anxiety, depression, medication side effect/complication - ) <Noemy Reyes MD - Last Filed: 04/03/25 07:58> Medical Records Attestation: I reviewed the patient's medical records. <Noemy Reyes MD - Last Filed: 04/03/25 07:58> Medical records narrative: Reviewed Dr Cagle's note 11/14/24 <Noemy Reyes MD - Last Filed: 04/03/25 07:58> Lab Data Attestation: I reviewed the patient's lab results. <Noemy Reyes MD - Last Filed: 04/03/25 07:58> Result diagrams: 04/02/25 14:10 04/02/25 14:10 <Norma Macdonald APRN - Last Filed: 04/02/25 14:07> Labs: Lab Results 04/02/25 04/02/25 04/02/25 Range/Units 14:04 14:10 14:39 WBC 8.1 (4.5-10.0) K/mm3 RBC 4.14 L (4.6-6.20) M/mm3 Hgb 13.0 L (14.0-18.0) g/dL Hct 37.4 L (42.0-52.0) % MCV 90.3 (80-100) fl MCH 31.4 (26-34) pg MCHC 34.8 (32-36) g/dl RDW 12.3 (11.5-14.5) % Plt Count 152 (150-375) k/mm3 MPV 9.9 (7.4-10.4) fl Immature Gran % (Auto) 0.6 H (0-0.5) % Neut % (Auto) 60.9 (45.5-73.1) % Lymph % (Auto) 26.8 (18.3-44.2) % [place] % (Auto) 7.0 (2.6-8.5) % Eos % (Auto) 3.3 (0-4.4) % Baso % (Auto) 1.4 H (0.2-1.2) % Lymph # (Auto) 2.18 (0.9-3.2) K/mm3 [place] # (Auto) 0.6 (0.1-0.6) K/mm3 Eos # (Auto) 0.3 (0-0.3) K/mm3 Baso # (Auto) 0.1 (0.0-0.1) K/mm3 Abs Immat Gran (auto) 0.05 H (0.00-0.031) K/mm3 Absolute Neuts (auto) 5.0 (1.3-6.7) K/mm3 Absolute Nucleated RBC 0.000 (0.0-0.012) K/mm3 Nucleated RBC % 0.0 (0.0-0.2) % % Immature Plt Fraction 3.5 (0.9-11.2) % Sodium 134 L (137-145) mmol/L Potassium 4.5 (3.4-5.0) mmol/L Chloride 100 (98-107) mmol/L Carbon Dioxide 21 L (22-30) mmol/L Anion Gap 13 H (4-12) mmol/L BUN 33 H (9-20) mg/dL Creatinine 1.44 H (0.7-1.3) mg/dL Estim Creat Clear Calc 63 ml/min Estimated GFR 51 L (59 - ) Glucose 81 (65-110) mg/dL POC Capillary Glucose 82 (65-105) mg/dl Calcium 9.2 (8.4-10.2) mg/dL Total Bilirubin 0.4 (0.2-1.3) mg/dL AST 30 (17-59) U/L ALT 20 (6-50) U/L Alkaline Phosphatase 78 (38-126) U/L Total Protein 8.0 (6.3-8.2) g/dL Albumin 4.6 (3.5-5.1) g/dL TSH 3.860 (0.465-4.680) uIU/mL Urine Color Yellow (Yellow) Urine Appearance Clear (Clear) Urine pH 5.5 (5.0-9.0) Ur Specific [place] 1.009 (1.001-1.035) Urine Protein Negative (Negative) mg/dL Urine Glucose (UA) Negative (Negative) mg/dL Urine Ketones Negative (Negative) mg/dL Ur Blood (Man) Negative (Negative) Urine Nitrate Negative (Negative) Urine Bilirubin Negative (Negative) Urine Urobilinogen 0.2 (<2.0) mg/dL Leukocyte Esterase Rfl Negative (Negative) JAMA/UL Urine Opiates Screen Negative (Negative) Urine Methadone Screen Negative (Negative) Ur Barbiturates Screen Negative (Negative) Ur Phencyclidine Scrn Negative (Negative) Ur Amphetamine Screen Negative (Negative) U Benzodiazepines Scrn Negative (Negative) Urine Cocaine Screen Negative (Negative) U Cannabinoids Screen Negative (Negative) Ethyl Alcohol < 10 (<10) mg/dL Influenza A (RT-PCR) Negative (Negative) Influenza B (RT-PCR) Negative (Negative) RSV (RT-PCR) Negative (Negative) SARS-CoV-2 RNA (RT-PCR) Negative (Negative) <Norma Macdonald, CRANKSHAFT GRINDER - Last Filed: 04/02/25 14:07> Lab Results 04/02/25 04/02/25 04/02/25 Range/Units 14:04 14:10 14:39 WBC 8.1 (4.5-10.0) K/mm3 RBC 4.14 L (4.6-6.20) M/mm3 Hgb 13.0 L (14.0-18.0) g/dL Hct 37.4 L (42.0-52.0) % MCV 90.3 (80-100) fl MCH 31.4 (26-34) pg MCHC 34.8 (32-36) g/dl RDW 12.3 (11.5-14.5) % Plt Count 152 (150-375) k/mm3 MPV 9.9 (7.4-10.4) fl Immature Gran % (Auto) 0.6 H (0-0.5) % Neut % (Auto) 60.9 (45.5-73.1) % Lymph % (Auto) 26.8 (18.3-44.2) % [place] % (Auto) 7.0 (2.6-8.5) % Eos % (Auto) 3.3 (0-4.4) % Baso % (Auto) 1.4 H (0.2-1.2) % Lymph # (Auto) 2.18 (0.9-3.2) K/mm3 [place] # (Auto) 0.6 (0.1-0.6) K/mm3 Eos # (Auto) 0.3 (0-0.3) K/mm3 Baso # (Auto) 0.1 (0.0-0.1) K/mm3 Abs Immat Gran (auto) 0.05 H (0.00-0.031) K/mm3 Absolute Neuts (auto) 5.0 (1.3-6.7) K/mm3 Absolute Nucleated RBC 0.000 (0.0-0.012) K/mm3 Nucleated RBC % 0.0 (0.0-0.2) % % Immature Plt Fraction 3.5 (0.9-11.2) % Sodium 134 L (137-145) mmol/L Potassium 4.5 (3.4-5.0) mmol/L Chloride 100 (98-107) mmol/L Carbon Dioxide 21 L (22-30) mmol/L Anion Gap 13 H (4-12) mmol/L BUN 33 H (9-20) mg/dL Creatinine 1.44 H (0.7-1.3) mg/dL Estim Creat Clear Calc 63 ml/min Estimated GFR 51 L (59 - ) Glucose 81 (65-110) mg/dL POC Capillary Glucose 82 (65-105) mg/dl Calcium 9.2 (8.4-10.2) mg/dL Total Bilirubin 0.4 (0.2-1.3) mg/dL AST 30 (17-59) U/L ALT 20 (6-50) U/L Alkaline Phosphatase 78 (38-126) U/L Total Protein 8.0 (6.3-8.2) g/dL Albumin 4.6 (3.5-5.1) g/dL TSH 3.860 (0.465-4.680) uIU/mL Urine Color Yellow (Yellow) Urine Appearance Clear (Clear) Urine pH 5.5 (5.0-9.0) Ur Specific [place] 1.009 (1.001-1.035) Urine Protein Negative (Negative) mg/dL Urine Glucose (UA) Negative (Negative) mg/dL Urine Ketones Negative (Negative) mg/dL Ur Blood (Man) Negative (Negative) Urine Nitrate Negative (Negative) Urine Bilirubin Negative (Negative) Urine Urobilinogen 0.2 (<2.0) mg/dL Leukocyte Esterase Rfl Negative (Negative) JAMA/UL Urine Opiates Screen Negative (Negative) Urine Methadone Screen Negative (Negative) Ur Barbiturates Screen Negative (Negative) Ur Phencyclidine Scrn Negative (Negative) Ur Amphetamine Screen Negative (Negative) U Benzodiazepines Scrn Negative (Negative) Urine Cocaine Screen Negative (Negative) U Cannabinoids Screen Negative (Negative) Ethyl Alcohol < 10 (<10) mg/dL Influenza A (RT-PCR) Negative (Negative) Influenza B (RT-PCR) Negative (Negative) RSV (RT-PCR) Negative (Negative) SARS-CoV-2 RNA (RT-PCR) Negative (Negative) <Noemy Reyes MD - Last Filed: 04/03/25 07:58> ECG Data EKG #1: Attestation: I personally reviewed and interpreted this ECG as follows: <Noemy Reyes MD - Last Filed: 04/03/25 07:58> ECG completion date: 04/02/25 <Noemy Reyes MD - Last Filed: 04/03/25 07:58> ECG completion time: 14:07 <Noemy Reyes MD - Last Filed: 04/03/25 07:58> Interpretation: Normal sinus rhythm at a rate of 73 beats per minute. There are occasional PVCs . AR interval 166. QRS 83. QT/QTC 376/415. Good R-wave progression across the precordial leads. Left axis deviation suspected. T-wave flattening in 3 but upright in contiguous inferior leads 2 and AVF. No other T-wave inversions. <Noemy Reyes MD - Last Filed: 04/03/25 07:58> Discharge Plan Discharge Clinical Impression: Normocytic anemia, ORLY (acute kidney injury), Anxiety and depression <Norma Macdonald APRN - Last Filed: 04/02/25 14:07> Patient Disposition: Home <Normafrancis Macdonald APRN - Last Filed: 04/02/25 14:07> Condition: Stable <Normafrancis Macdonald APRN - Last Filed: 04/02/25 14:07> Instructions: Antibiotic Form, Acute Kidney Injury (DC), Depression (ED), Anemia (ED), Anxiety (ED) <Norma Macdonald APRN - Last Filed: 04/02/25 14:07> Additional Instructions: I talked with the on-call neurologist today who will convey your concerns to Dr Cagle tomorrow morning before your appointment with him. In addition, our conversation and the specific concerns you are having regarding your medications will be in my note and Dr Cagle will be able to see that. He stressed that It is VERY important that you keep tomorrow's appointment and, though shared decision making, I am hopeful that together you can move forward with a plan that balances your mental health medications with consideration of your need for seizure medications in a way that allows you to be at your most optimal state of health. Continue to follow-up with your PCP/psychiatrist/psychologist/counselor. Do not hesitate to return to the emergency department with any new or worsening symptoms. You did the right thing by coming today and seeking help and advocating for your needs and worries. <Norma Macdonald APRN - Last Filed: 04/02/25 14:07> Patient Language: German <Norma Macdonald, CRANKSHAFT GRINDER - Last Filed: 04/02/25 14:07> Prescriptions: No Action levetiracetam [Keppra] 1,000 mg tablet 1,000 mg PO Q12H levetiracetam [Keppra XR] 500 mg tablet extended release 24 hr 1,500 mg PO DAILY levothyroxine [Euthyrox] 150 mcg tablet 150 mcg PO DAILY Qty: 90 1RF aspirin 325 mg Tablet 325 mg PO DAILY alprazolam 0.25 mg tablet 0.25 mg PO TID PRN (Reason: anxiety) Qty: 40 1RF (DME) CPAP machine and supplies See Rx Instructions .Route .MEDSUPPLY Qty: 1 0RF Rx Instructions: CPAP machine, pressure settings 4-20. Nasal pillows mask, new tubing, new reservoir. Length of need 99+, DX: obstructive sleep apnea. rosuvastatin [Crestor] 10 mg tablet 10 mg PO DAILY Qty: 90 1RF rosuvastatin [Crestor] 5 mg tablet 5 mg PO DAILY Qty: 90 1RF duloxetine 30 mg capsule,delayed release(DR/EC) 30 mg PO DAILY Qty: 180 1RF Rx Instructions: start taking 1 cap daily for 2 weeks then can increase to 2 caps daily <Norma Macdonald APRN - Last Filed: 04/02/25 14:07> Follow-up/Referrals: Emi Julio, FAMILY MANAGER-C [Primary Care Provider] - Latisha Cagle MD [Physician] - <Norma Macdonald APRN - Last Filed: 04/02/25 14:07> Stand Alone Forms: Work/School Release IP <Norma Macdonald APRN - Last Filed: 04/02/25 14:07> Time of Disposition: 19:05 <Norma Macdonald APRN - Last Filed: 04/02/25 14:07> 19:05 <Noemy Reyes MD - Last Filed: 04/03/25 07:58>
--- OUTSIDE RECORDS SUMMARY | 2025-04-02 14:10 | XMS_ITS ---
Author Organization Pending sale to [facility] Address [address] [place] [address] Care Team Providers Care Stacker Operator Name Role Phone Gissel Cuello Primary Care Provider REASON FOR VISIT NEW EVAL Encounters Encounter Location Date Provider Diagnosis [address] [address] 03/08/2025 Gissel Cuello Plan Of Treatment No Information Progress Notes * SANDRAIgnacio STRONGDOB: [birth year] (54 yo M)Acc No.[id number]:03/08/2025 UNLOCKED PROGRESS NOTE Patient: Ignacio VITALE Provider: Milagros Cuello DNP, PJ-LILIAN, MINE SAFETY ENGINEER :1970 A ge:54 Y S ex:Male Date:03/08/2025 Address:[address], [facility] Subjective: * Chief Complaints: * 1 . NEW EVAL. * Medical History: Objective: * Vitals: Assessment: Plan: * Treatment: * * Electronic signature of Nikky Cuello on 04/02/2025 at 02:10 PM CDT Sign off status: Pending * Provider: Milagros Cuello DNP, PJ-BC, MINE SAFETY ENGINEER Date: 03/08/2025 Generated for Printing/Faxing/eTransmitting on: 04/02/2025 02:10 PM CDT
[2025-04-02 14:27] LABS: Hematocrit 37.4 % (42.0-52.0); Hemoglobin 13.0 g/dL (14.0-18.0); Immature Granulocyte Percent A 0.6 % (0-0.5); Immature Platelet Fraction Pct 3.5 % (0.9-11.2); Lymphocytes Absolute Auto 2.18 K/mm3 (0.9-3.2); Mean Corpuscular HGB Conc 34.8 g/dl (32-36); Mean Corpuscular Hemoglobin 31.4 pg (26-34); Mean Corpuscular Volume 90.3 fl (80-100); Nucleated Red Blood Cells Absolute Auto 0.000 K/mm3 (0.0-0.012); Nucleated Red Blood Cells Perc 0.0 % (0.0-0.2); Platelet Count Result 152 k/mm3 (150-375); Red Blood Count 4.14 M/mm3 (4.6-6.20); White Blood Count 8.1 K/mm3 (4.5-10.0)
[2025-04-02 14:43] LABS: Alanine Aminotransferase 20 U/L (6-50); Albumin Level 4.6 g/dL (3.5-5.1); Alkaline Phosphatase 78 U/L (38-126); Anion Gap 13 mmol/L (4-12); Aspartate Amino Transferase 30 U/L (17-59); Bilirubin,Total 0.4 mg/dL (0.2-1.3); Blood Urea Nitrogen 33 mg/dL (9-20); Calcium 9.2 mg/dL (8.4-10.2); Carbon Dioxide 21 mmol/L (22-30); Chloride 100 mmol/L (98-107); Estimated CRCL calculation 63 ml/min; Estimated Glomerular Filt Rate 51; Glucose 81 mg/dL (65-110); Potassium 4.5 mmol/L (3.4-5.0); Sodium 134 mmol/L (137-145); Total Protein 8.0 g/dL (6.3-8.2)
[2025-04-02 14:49] LABS: Add Urine Microscopic? NO; Appearance Urine Clear (Clear); Glucose Urine UA Negative (Negative); Leukocyte Esterase Ur Negative LEU/UL (Negative); Nitrate Urine Negative (Negative); Specific Grav Ur 1.009 (1.001-1.035)
[2025-04-02 14:56] LABS: Influenza A QL RT-PCR Negative (Negative); Influenza B QL RT-PCR Negative (Negative); RSV RNA, RT-PCR Negative (Negative); SARS-CoV-2 RNA PCR Negative (Negative)
[2025-04-02 15:19] LABS: Thyroid Stimulating Hormone 3.860 uIU/mL (0.465-4.680)
[2025-04-02 16:15] LABS: Cannabinoid Screen Urine Negative (Negative)
--- NOTE | 2025-04-02 18:15 | PC.NURSE ---
Dr. Reyes notified this RN that the pt. is medically cleared and Crisis can be called. Primary RN Sona notified.
--- NOTE | 2025-04-02 18:29 | PC.NURSE ---
pt will be given mental health resources per his request. pt has denied SI/HI. pt denied having CRISIS called and would like resources to follow up with. pt is A&OX4
--- NOTE | 2025-04-02 19:15 | PC.NURSE ---
pt was given water per EDP at 181 for PO challenge
[2025-04-02 19:16] VITALS: BP 124/80; PULSE 68; RESP 15; O2SAT 98
== END 2025-04-02 19:17 | disposition home or self-care (01) ==
PROVIDERS: Registered Nurse; Emergency Provider Student in an Organized Health Care Education/Training Program; PCP Nurse Practitioner Family
DX: F41.9 Anxiety disorder, unspecified (principal); N17.9 Acute kidney failure, unspecified; D64.9 Anemia, unspecified; F32.A Depression, unspecified; Z11.52 Encounter for screening for COVID-19; E78.00 Pure hypercholesterolemia, unspecified; E03.9 Hypothyroidism, unspecified; G47.33 Obstructive sleep apnea (adult) (pediatric); Z86.711 Personal history of pulmonary embolism; Z86.73 Personal history of transient ischemic attack (TIA), and cerebral infarction without residual deficits; Z79.899 Other long term (current) drug therapy; Z79.82 Long term (current) use of aspirin; I49.3 Ventricular premature depolarization; R94.31 Abnormal electrocardiogram [ECG] [EKG]
CPT/HCPCS: 36415; 80053; 80307; 81003; 82077; 82948; 84443; 85025; 85055; 87637; 93005; 99283

== ENCOUNTER 2025-06-07 07:22 | Emergency (ER) | payer OTHER, SELFPAY ==
--- OUTSIDE RECORDS SUMMARY | 2015-06-12 17:18 | XMS_ITS | Continuity of Care Document ---
Author Organization [facility] Address [address] [place] [address] Phone Care Team Providers Care Panel Edge Sealer Name Role Phone Dima HERNANDEZ, Saul Unavailable Unavailable Advance Directives Directive Yes / No Effective Date File Name No Information Encounters Encounter Description Practice Location Reason(s) For Visit Diagnoses Date Provider Providers Copied on Encounter [facility], [address], [place], [place], [id number], [place] tel:[phone] [facility] No Information Dima Hughes. [address], [address], [place], [address], [place]. tel: [phone] Family History Family Member Type Diagnosis Age At Onset No Information Payers Payer name Insurance type Covered constitution party ID Authoriza tion(s) No Information Social History Type Description Quantity Date Captured Comments Sex Male Smoking Status No Information Chief Complaint And Reason For Visit No Information Reason For Referral Reason For Referral No Information History Of Present Illness Encounter Date Complaint History Of Prese nt Illness No Information Functional Status Date Functional Assessmen t No Information Instructions Date Instruction Additional Infor mation No Information Assessments Type Assessment Date No Information Patient Care Teams Name Effective Dates (start - stop) Status Members No Information
--- OUTSIDE RECORDS SUMMARY | 2015-06-12 17:18 | XMS_ITS | Continuity of Care Document ---
Author Organization [facility] Address [address] [place] [address] Phone Care Team Providers Care Field Education Coordinator Name Role Phone Dima HERNANDEZ, Saul Unavailable Unavailable Advance Directives Directive Yes / No Effective Date File Name No Information Encounters Encounter Description Practice Location Reason(s) For Visit Diagnoses Date Provider Providers Copied on Encounter [facility], [address], [place], [place], [id number], [place] tel:[phone] [facility] No Information Dima Hughes. [address], [address], [place], [address], [place]. tel: [phone] Family History Family Member Type Diagnosis Age At Onset No Information Payers Payer name Insurance type Covered green party ID Authoriza tion(s) No Information Social [...]
--- OUTSIDE RECORDS SUMMARY | 2025-03-08 05:00 | XMS_ITS ---
Author Organization [facility] Address [address] [place] [address] Care Team Providers Care Director Of Hemophilia Name Role Phone Gissel Cuello Primary Care Provider [phone] REASON FOR VISIT NEW EVAL Encounters Encounter Location Date Provider Diagnosis [address] [address] 03/08/2025 Gissel Cuello Plan Of Treatment No Information Progress Notes * Ignacio GOMEZDOB: [birth year] (54 yo M)Acc No.[id number]:03/08/2025 UNLOCKED PROGRESS NOTE Patient: Ignacio VITALE Provider: Milagros Cuello DNP, PMHNP-BC, TELEMETRY NURSE :1970 A ge:54 Y S ex:Male Date:03/08/2025 Address:[address], [facility] Subjective: * Chief Complaints: * 1 . NEW EVAL. * Medical History: Objective: * Vitals: Assessment: Plan: * Treatment: * * Electronic signature of Nikky Cuello on 06/07/2025 at 07:26 AM CDT Sign off status: Pending * Provider: Milagros Cuello DNP, PJ-LILIAN, TELEMETRY NURSE Date: 03/08/2025 Generated for Printing/Faxing/eTransmitting on: 06/07/2025 07:26 AM CDT
--- NOTE | ~2025-06-07 | US_ITS ---
EXAMINATION: US venous doppler [facility] DATE: 06/07/2025 08:23 INDICATION: Left lower limb pain. Left lower limb deep vein thrombosis. TECHNIQUE: Grayscale ultrasound images without and with compression and Doppler ultrasound images of the left lower extremity veins were obtained. COMPARISON: Ultrasound 08/19/2018 FINDINGS: The visualized portions of left common femoral vein and profunda (deep) femoral vein are patent. There is thrombus in left femoral vein, popliteal vein, peroneal veins, posterior tibial veins, and greater saphenous vein. IMPRESSION: 1. Deep vein thrombosis involving the left femoral vein, popliteal vein, and peroneal and posterior tibial veins. 2. Superficial vein thrombosis involving the left greater saphenous vein. Reviewed, dictated and finalized at location E. IMPRESSION: 1. Deep vein thrombosis involving the left femoral vein, popliteal vein, and p eroneal and posterior tibial veins. 2. Superficial vein thrombosis involving the left greater saphenous vein.
--- OUTSIDE RECORDS SUMMARY | 2025-06-07 07:26 | XMS_ITS | Patient Health Record ---
Author Organization [facility] Address [address] [place] [address] Care Team Providers Care Production Intern Name Role Phone Gissel Cuello Primary Care Provider Reason For Referral No Information Plan Of Treatment No Information Insurance Providers Payer Name Payer Address Payer Phone Subscriber Number Group Number Insured Name Patient Relationship to Insured Coverage Start Date Coverage End Date [facility] [address] [place] [phone] [id number] Ignacio Gomez Self - patient is the insured 5
--- OUTSIDE RECORDS SUMMARY | 2025-06-07 07:26 | XMS_ITS | Clinical Summary ---
Author Organization [facility] Address [address] 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 This disclosure is being madepursuant to the Care Everywhere program and may not contain all information available regarding this patient. Last updated 18.[facility] Allergies No known active allergies Social History Tobacco Use Types Packs/Day Years Used Date Smoking Tobacco: Never Smokeless Tobacco: Never Alcohol Use Standard Drinks/Week Comments Yes 0 (1 standard drink = 0.6 oz pur e alcohol) a few times per week PHQ-2 Answer Date Recorded PHQ2 TOTAL SCORE 6 04/01/2021 Sex and Gender Information Value Date Recorded Sex Assigned at Not on file Legal Sex Male 6:00 AM [employer] Gender Identity Not on file Sexual Orientation Not on file Plan of Treatment Health Maintenance Due Date Last Done Comments COLOGUARD (AGES 45-75) - COL ON CA SCREENING 1970 COLON MONITORING 1970 COLONOSCOPY - COLON CA SCREENING 1970 CT COLONOGRAPHY - COLON CA SCREENING 1970 Colorectal Cancer Screening 1970 FIT - COLON CA SCREENING 1970 FLEX SIG - COLON CA SCREENING 1970 LIPID TESTING 1970 HIV SCREENING 1985 HEPATITIS C SCREENING 09/06/1988 DTAP/TDAP/TD VACCINES (1 - Tdap) 1989 HEPATITIS B VACCINE (1 of 3 - 19+ 3-dose series) 1989 PNEUMOCOCCAL VACCINE 50+ (1 of 1 - PCV) 2020 ZOSTER VACCINE (1 of 2) 2020 DEPRESSION SCREENING 09/12/2024 COVID-19 VACCINE (1 - 2023-2 5 season) 2025 INFLUENZA VACCINE (#1) 2025 06/12/2007 HIB VACCINE Aged Out No longer eligi ble based on patient's age to complete this topic HPV VACCINE Aged Out No longer eligi ble based on patient's age to complete this topic MENINGOCOCCAL (Group B) VACC INE SHARED DECISION-MAKING Aged Out No longer eligibl e based on patient's age to complete this topic MENINGOCOCCAL GROUPS A/C/Y/W VACCINE Aged Out No longer eligible b ased on patient's age to complete this topic Insurance [facility] Care Teams 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
--- OUTSIDE RECORDS SUMMARY | 2025-06-07 07:26 | XMS_ITS | Patient Health Record ---
Author Organization [facility] As [employer] Address [address] [facility] [place] [address] Care Team Providers Care Customer Service Trainer Name Role Phone Chad Cruz Unavailable [phone] Natalya Dean Unavailable [phone] Allergies No Known Allergies Results Component Value Reference Range Notes DRUG MONITOR, BENZO, W/CONF, URINE ([id number]) Reviewed date:03/21/2025 01:17:35 PM Interpretation: Performing Lab:[facility] [id number] [facility] [place] [id number] David Fuentes, Director - [id number] [facility] Notes/Report: FASTING: NO Benzodiazepines NEGATIVE CONFIRMED <100 ng/mL Alphahydroxyalprazolam NEGATIVE <25 ng/mL Alphahydroxymidazolam NEGATIVE <50 ng/mL Alphahydroxytriazolam NEGATIVE <50 ng/mL Aminoclonazepam NEGATIVE <25 ng/mL Hydroxyethylflurazepam NEGATIVE <50 ng/mL Lorazepam NEGATIVE <50 ng/mL Nordiazepam NEGATIVE <50 ng/mL Oxazepam NEGATIVE <50 ng/mL Temazepam NEGATIVE <50 ng/mL Benzodiazepines Comments See LDT Notes Notes and Comments This drug testing is for medical treatment only. Analysis was performed as non-forensic testing and these results should be used only by healthcare providers to render diagnosis or treatment, or to monitor progress of medical conditions. LDT Notes: Confirmation tests were developed and their analytical performance characteristics have been determined by [facility] It has not been cleared or approved by the FDA. This assay has been validated pursuant to the CLIA regulations and is used for clinical purposes. Healthcare Providers needing Interpretation assistance, please contact us at [phone] ( ) M-F, 8am to 10pm EST UDT Reviewed date:03/04/2025 05:13:09 PM Interpretation: Performing Lab: Notes/Report: THC n 0 - 50 ng/ml Cocaine n 0 - 300 ng/ml Amphetamine n 0 - 1000 ng/ml Buprenorphine (BUP) n 0 - 10 ng/ml Secobarbital (Bar) n 0 - 300 ng/ml Oxazepam (BZO) p 0 - 300 ng/ml 8-xhbtmbjahl-0,9-kqunviqi-4, 3-diphe nylpyrrolidine (EDDP) n 0 - 300 ng/ml Methamphetamine (MET) n 0 - 1000 ng/ml Methylenedioxymethamphetamin e (MDMA) n 0 - 500 ng/ml Morphine (MOP 300/[id number]) n 0 - 300 ng/ml Methadone (MTD) n 0 - 300 ng/ml Phencyclidine (PCP) n 0 - 25 ng/ml Nortriptyline (TCA) n 0 - 1000 ng/ml Oxycodone n 0 - 300 ng/ml x n 0 - 300 ng/ml Reason For Referral No Information Medications Medication SIG (Take, Route, Frequency, Duration) Notes Start Date End Date Status Propranolol HCl 10 MG Tablet 1 tablet on an empty stomach Orally once a day; Duration: 30 days As needed hold if heart rate is below 60 beats per minute. Active Sertraline HCl 50 MG Tablet 1 tablet Orally Once a day; Duration: 30 days 03/21/2025 Active Levothyroxine Sodium 150 MCG Tablet TAKE 1 TABLET BY MOUTH DAILY Oral; Duration: 90 Days Active Keppra XR 750 MG Tablet Extended Release 24 Hour 1 tablet Orally Once a day Pt claims 1500 MG Active Social History Tobacco Use: Social History Observation Description Date Details (start date - stop date) Never Smoker NA - NA Sex Assigned At : Social History Observation Description Sex Assigned At Male Social History Miscellaneous: Social Info Question Answer Notes Safety issues: Are there any firearms in the house? No Social History Social Info Question Answer Notes Household: Marital Status: Number of Adults in household: 1 Number of Children in Household: 0 Level of Education: Not Finished College Drug/Alcohol: Social Info Question Answer Notes Drugs Have you used drugs other than those for medical reasons in the past 12 months? No AUDIT-C (Standard) Did you have a drink containing alcohol in the past year? Yes How often did you have a drink containing alcohol in the past year? Monthly or less (1 point) How many drinks did you have on a typical day when you were drinking in the past year? 1 or 2 drinks (0 point) How often did you have six or more drinks on one occasion in the past year? 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 Problem Generalized anxiety disorder (24474788) DASHA (generalized anxiety disorder) (F41.1) Active confirmed Problem Moderate recurrent major depression (29274548) MDD (major depressive disorder), recurrent episode, moderate (F33.1) Active confirmed BDI score on 03/21/2025: 20 Problem Chronic alcoholism in remission (326675468) Alcohol dependence in remission (F10.21) Active confirmed Problem Seizure disorder (885810001) Seizure disorder (G40.909) Active confirmed sees a neurologist Problem Severe major depression, single episode, without psychotic features (99077933) Current severe episode of major depressive disorder without psychotic features without prior episode (F32.2) Active confirmed Problem Feeling suicidal (156644404) Passive suicidal ideations (R45.851) Active confirmed Vital Signs Heart Rate 66 /min 03/21/2025 Height-cm 190.5 cm 03/21/2025 Blood pressure diastolic 80 mm Hg 03/21/2025 Weight-kg 107.14 kg 03/21/2025 Height 75 in 03/21/2025 Blood pressure systolic 108 mm Hg 03/21/2025 Weight 236.2 lbs 03/21/2025 BMI 29.52 kg/m2 03/21/2025 Encounters Encounter Location Date Provider Diagnosis [facility], [facility] [address] [place] [id number] 03/04/2025 Chad Cruz Current severe episo de of major depressive disorder without psychotic features without prior episode F32.2 ; DASHA (generalized anxiety disorder) F41.1 ; Passive suicidal ideations R45.851 ; Alcohol dependence in remission F10.21 ; Seizure disorder G40.909 ; Encounter for screening for cardiovascular disorders Z13.6 ; Encounter for screening for depression Z13.31 and Dietary counseling and surveillance Z71.3 [employer] [employer] [address] [place] [address] 03/04/2025 Natalya Dean Major depressive disorder, recurrent severe without psychotic features F33.2 ; DASHA (generalized anxiety disorder) F41.1 ; Encounter for screening for depression Z13.31 ; Encounter for screening for cardiovascular disorders Z13.6 and Dietary counseling and surveillance Z71.3 [employer] [employer] [address] [place] [address] 03/07/2025 Chad Clubb DASHA (generalized anxiety disorder) F41.1 ; Current severe episode of major depressive disorder without psychotic features without prior episode F32.2 ; Alcohol dependence in remission F10.21 ; Seizure disorder G40.909 ; Encounter for screening for depression Z13.31 and Encounter for screening for cardiovascular disorders Z13.6 [employer] [employer] [facility] [address] [place] [address] 03/21/2025 Natalya Dean Major depressive disorder, recurrent severe without psychotic features F33.2 ; DASHA (generalized anxiety disorder) F41.1 ; Alcohol dependence in remission F10.21 and Encounter for screening for depression Z13.31 [employer] [employer] [address] [place] [address] 03/21/2025 Chad Clubb DASHA (generalized anxiety disorder) F41.1 ; MDD (major depressive disorder), recurrent episode, moderate F33.1 ; Insomnia due to medical condition G47.01 ; Alcohol dependence in remission F10.21 and Seizure disorder G40.909 [employer] [address] [place] [address] 03/21/2025 Chad Clubb Assessments Encounter Date Diagnosis (ICD Code) Assessment Notes Treatment Notes Treatment Clinical Notes Section Notes 03/04/2025 Major depressive disorder, recurrent severe without psychotic features (ICD-10 - F33.2) Major Depressive Disorder Assessment: Patient reports onset of depressive symptoms following discontinuation of duloxetine a couple of months ago. Symptoms include frequent crying, low energy, poor concentration, irritability, and anhedonia, particularly affecting his relationship with his children. These symptoms are significantly impacting his work performance and daily functioning. Patient has a history of brief depressive episode following divorce, but current symptoms appear more severe and persistent. Recent life stressors include seizures and medical concerns. No current suicidal ideation, but patient expresses distress at having had intrusive thoughts. Plan: - Monitor for improvement in mood, energy, concentration, and irritability - Take medication as prescribed by Chad - Encourage maintaining social connections and support system involvement Anxiety Disorder Assessment: Patient has a long-standing history of anxiety since age 23-24, previously well-managed with medication and exercise for approximately 15 years. Recent exacerbation of anxiety symptoms following discontinuation of duloxetine. No current panic attacks reported, but patient experiences occasional episodes of disorientation and chills. Anxiety appears to be impacting work performance and social activities. Plan: - Take medication as prescribed by Chad - Monitor for improvement in anxiety symptoms, particularly in work and social settings - Encourage continuation of previously effective anxiety management strategies (e.g., exercise, healthy diet) 03/04/2025 DASHA (generalized anxiety disorder) (ICD-10 - F41.1) Major Depressive Disorder Assessment: Patient reports onset of depressive symptoms following discontinuation of duloxetine a couple of months ago. Symptoms include frequent crying, low energy, poor concentration, irritability, and anhedonia, particularly affecting his relationship with his children. These symptoms are significantly impacting his work performance and daily functioning. Patient has a history of brief depressive episode following divorce, but current symptoms appear more severe and persistent. Recent life stressors include seizures and medical concerns. No current suicidal ideation, but patient expresses distress at having had intrusive thoughts. Plan: - Monitor for improvement in mood, energy, concentration, and irritability - Take medication as prescribed by Chad - Encourage maintaining social connections and support system involvement Anxiety Disorder Assessment: Patient has a long-standing history of anxiety since age 23-24, previously well-managed with medication and exercise for approximately 15 years. Recent exacerbation of anxiety symptoms following discontinuation of duloxetine. No current panic attacks reported, but patient experiences occasional episodes of disorientation and chills. Anxiety appears to be impacting work performance and social activities. Plan: - Take medication as prescribed by Chad - Monitor for improvement in anxiety symptoms, particularly in work and social settings - Encourage continuation of previously effective anxiety management strategies (e.g., exercise, healthy diet) 03/04/2025 DASHA (generalized anxiety disorder) (ICD-10 - F41.1) 03/04/2025 Current severe episode of major depressive disorder without psychotic features without prior episode (ICD-10 - F32.2) 03/07/2025 DAHSA (generalized anxiety disorder) (ICD-10 - F41.1) 03/07/2025 Current severe episode of major depressive disorder without psychotic features without prior episode (ICD-10 - F32.2) 03/21/2025 Major depressive disorder, recurrent severe without psychotic features (ICD-10 - F33.2) Anxiety and Depression Assessment: Patient reports experiencing anxiety and depression following abrupt discontinuation of Cymbalta by his neurologist in early November. Anxiety symptoms include racing heart, fidgeting, and difficulty holding objects, occurring approximately 5 out of 7 days. Depression symptoms are described as fluctuating, with some improvement noted. These symptoms are significantly impacting his daily functioning, including work, family interactions, and social activities. Patient also reports memory and concentration difficulties. Currently taking Zoloft (sertraline) for 2 weeks, starting with half a tablet and scheduled to increase to full dose tomorrow. Patient expresses concern about potential worsening of anxiety with dose increase. Also taking propranolol as needed for anxiety symptoms. Plan: - Continue Zoloft (sertraline) as prescribed, increasing to full tablet (50 mg) daily starting tomorrow per Chad - Implement TIP skills for managing intense emotions and racing thoughts: - Temperature change - Intense exercise - Paced breathing - Paired muscle relaxation Neurological Symptoms Assessment: Patient reports daily headaches, vertigo, dizziness, and balance issues. Vertigo symptoms occur approximately 2 hours after taking Zoloft and last for 4-5 hours. Patient also mentions neuropathy on the right side, possibly related to a TIA 10 years ago. History of 3 seizures, currently on Keppra (levetiracetam) for seizure management. Patient believes Keppra may be contributing to his symptoms (fatigue, headaches, dizziness, nausea). Ignacio would like to discontinue seizure medication due to the possibility that seizures were alcohol-induced, as patient reports 8.5 months of sobriety. Plan: - Refer patient for neurological re-evaluation to assess current medication regimen and explore alternative treatments for seizure prevention - Encourage patient to keep a symptom diary to track headaches, vertigo, and other neurological symptoms, noting any patterns or triggers - Discuss findings with patient's primary care provider and neurologist to coordinate care Lifestyle and Health Behaviors Assessment: Patient reports significant decrease in physical activity, from 80-90 miles of walking per week to approximately 20 miles. Recent weight fluctuations, with 35 pounds lost in spring and 20 pounds regained in the past 1.5 months. Reports poor dietary habits and lack of motivation to cook. Abstinent from alcohol for 8.5 months. Experiencing persistent fatigue, low energy, and low motivation. Plan: - Encourage gradual increase in physical activity, starting with small movements (e.g., wiggling fingers and toes) when feeling unmotivated - Discuss strategies for improving nutrition and meal preparation - Reinforce importance of maintaining sobriety and its positive impact on overall health - Explore behavioral activation techniques to address low motivation and energy 03/21/2025 DASHA (generalized anxiety disorder) (ICD-10 - F41.1) Anxiety and Depression Assessment: Patient reports experiencing anxiety and depression following abrupt discontinuation of Cymbalta by his neurologist in early November. Anxiety symptoms include racing heart, fidgeting, and difficulty holding objects, occurring approximately 5 out of 7 days. Depression symptoms are described as fluctuating, with some improvement noted. These symptoms are significantly impacting his daily functioning, including work, family interactions, and social activities. Patient also reports memory and concentration difficulties. Currently taking Zoloft (sertraline) for 2 weeks, starting with half a tablet and scheduled to increase to full dose tomorrow. Patient expresses concern about potential worsening of anxiety with dose increase. Also taking propranolol as needed for anxiety symptoms. Plan: - Continue Zoloft (sertraline) as prescribed, increasing to full tablet (50 mg) daily starting tomorrow per Chad - Implement TIP skills for managing intense emotions and racing thoughts: - Temperature change - Intense exercise - Paced breathing - Paired muscle relaxation Neurological Symptoms Assessment: Patient reports daily headaches, vertigo, dizziness, and balance issues. Vertigo symptoms occur approximately 2 hours after taking Zoloft and last for 4-5 hours. Patient also mentions neuropathy on the right side, possibly related to a TIA 10 years ago. History of 3 seizures, currently on Keppra (levetiracetam) for seizure management. Patient believes Keppra may be contributing to his symptoms (fatigue, headaches, dizziness, nausea). Ignacio would like to discontinue seizure medication due to the possibility that seizures were alcohol-induced, as patient reports 8.5 months of sobriety. Plan: - Refer patient for neurological re-evaluation to assess current medication regimen and explore alternative treatments for seizure prevention - Encourage patient to keep a symptom diary to track headaches, vertigo, and other neurological symptoms, noting any patterns or triggers - Discuss findings with patient's primary care provider and neurologist to coordinate care Lifestyle and Health Behaviors Assessment: Patient reports significant decrease in physical activity, from 80-90 miles of walking per week to approximately 20 miles. Recent weight fluctuations, with 35 pounds lost in spring and 20 pounds regained in the past 1.5 months. Reports poor dietary habits and lack of motivation to cook. Abstinent from alcohol for 8.5 months. Experiencing persistent fatigue, low energy, and low motivation. Plan: - Encourage gradual increase in physical activity, starting with small movements (e.g., wiggling fingers and toes) when feeling unmotivated - Discuss strategies for improving nutrition and meal preparation - Reinforce importance of maintaining sobriety and its positive impact on overall health - Explore behavioral activation techniques to address low motivation and energy 03/21/2025 DASHA (generalized anxiety disorder) (ICD-10 - F41.1) 03/21/2025 MDD (major depressive disorder), recurrent episode, moderate (ICD-10 - F33.1) BDI score on 03/21/2025: 20 03/21/2025 Alcohol dependence in remission (ICD-10 - F10.21) Anxiety and Depression Assessment: Patient reports experiencing anxiety and depression following abrupt discontinuation of Cymbalta by his neurologist in early November. Anxiety symptoms include racing heart, fidgeting, and difficulty holding objects, occurring approximately 5 out of 7 days. Depression symptoms are described as fluctuating, with some improvement noted. These symptoms are significantly impacting his daily functioning, including work, family interactions, and social activities. Patient also reports memory and concentration difficulties. Currently taking Zoloft (sertraline) for 2 weeks, starting with half a tablet and scheduled to increase to full dose tomorrow. Patient expresses concern about potential worsening of anxiety with dose increase. Also taking propranolol as needed for anxiety symptoms. Plan: - Continue Zoloft (sertraline) as prescribed, increasing to full tablet (50 mg) daily starting tomorrow per Chad - Implement TIP skills for managing intense emotions and racing thoughts: - Temperature change - Intense exercise - Paced breathing - Paired muscle relaxation Neurological Symptoms Assessment: Patient reports daily headaches, vertigo, dizziness, and balance issues. Vertigo symptoms occur approximately 2 hours after taking Zoloft and last for 4-5 hours. Patient also mentions neuropathy on the right side, possibly related to a TIA 10 years ago. History of 3 seizures, currently on Keppra (levetiracetam) for seizure management. Patient believes Keppra may be contributing to his symptoms (fatigue, headaches, dizziness, nausea). Ignacio would like to discontinue seizure medication due to the possibility that seizures were alcohol-induced, as patient reports 8.5 months of sobriety. Plan: - Refer patient for neurological re-evaluation to assess current medication regimen and explore alternative treatments for seizure prevention - Encourage patient to keep a symptom diary to track headaches, vertigo, and other neurological symptoms, noting any patterns or triggers - Discuss findings with patient's primary care provider and neurologist to coordinate care Lifestyle and Health Behaviors Assessment: Patient reports significant decrease in physical activity, from 80-90 miles of walking per week to approximately 20 miles. Recent weight fluctuations, with 35 pounds lost in spring and 20 pounds regained in the past 1.5 months. Reports poor dietary habits and lack of motivation to cook. Abstinent from alcohol for 8.5 months. Experiencing persistent fatigue, low energy, and low motivation. Plan: - Encourage gradual increase in physical activity, starting with small movements (e.g., wiggling fingers and toes) when feeling unmotivated - Discuss strategies for improving nutrition and meal preparation - Reinforce importance of maintaining sobriety and its positive impact on overall health - Explore behavioral activation techniques to address low motivation and energy 03/21/2025 Insomnia due to medical condition (ICD-10 - G47.01) has not picked up CPAP machine. 03/07/2025 Alcohol dependence in remission (ICD-10 - F10.21) 03/04/2025 Passive suicidal ideations (ICD-10 - R45.851) 03/04/2025 Encounter for screening for depression (ICD-10 - Z13.31) Major Depressive Disorder Assessment: Patient reports onset of depressive symptoms following discontinuation of duloxetine a couple of months ago. Symptoms include frequent crying, low energy, poor concentration, irritability, and anhedonia, particularly affecting his relationship with his children. These symptoms are significantly impacting his work performance and daily functioning. Patient has a history of brief depressive episode following divorce, but current symptoms appear more severe and persistent. Recent life stressors include seizures and medical concerns. No current suicidal ideation, but patient expresses distress at having had intrusive thoughts. Plan: - Monitor for improvement in mood, energy, concentration, and irritability - Take medication as prescribed by Chad - Encourage maintaining social connections and support system involvement Anxiety Disorder Assessment: Patient has a long-standing history of anxiety since age 23-24, previously well-managed with medication and exercise for approximately 15 years. Recent exacerbation of anxiety symptoms following discontinuation of duloxetine. No current panic attacks reported, but patient experiences occasional episodes of disorientation and chills. Anxiety appears to be impacting work performance and social activities. Plan: - Take medication as prescribed by Chad - Monitor for improvement in anxiety symptoms, particularly in work and social settings - Encourage continuation of previously effective anxiety management strategies (e.g., exercise, healthy diet) 03/04/2025 Alcohol dependence in remission (ICD-10 - F10.21) 03/04/2025 Encounter for screening for cardiovascular disorders (ICD-10 - Z13.6) Major Depressive Disorder Assessment: Patient reports onset of depressive symptoms following discontinuation of duloxetine a couple of months ago. Symptoms include frequent crying, low energy, poor concentration, irritability, and anhedonia, particularly affecting his relationship with his children. These symptoms are significantly impacting his work performance and daily functioning. Patient has a history of brief depressive episode following divorce, but current symptoms appear more severe and persistent. Recent life stressors include seizures and medical concerns. No current suicidal ideation, but patient expresses distress at having had intrusive thoughts. Plan: - Monitor for improvement in mood, energy, concentration, and irritability - Take medication as prescribed by Chad - Encourage maintaining social connections and support system involvement Anxiety Disorder Assessment: Patient has a long-standing history of anxiety since age 23-24, previously well-managed with medication and exercise for approximately 15 years. Recent exacerbation of anxiety symptoms following discontinuation of duloxetine. No current panic attacks reported, but patient experiences occasional episodes of disorientation and chills. Anxiety appears to be impacting work performance and social activities. Plan: - Take medication as prescribed by Chad - Monitor for improvement in anxiety symptoms, particularly in work and social settings - Encourage continuation of previously effective anxiety management strategies (e.g., exercise, healthy diet) 03/07/2025 Seizure disorder (ICD-10 - G40.909) 03/21/2025 Alcohol dependence in remission (ICD-10 - F10.21) 03/21/2025 Seizure disorder (ICD-10 - G40.909) sees a neurologist 03/07/2025 Encounter for screening for depression (ICD-10 - Z13.31) 03/21/2025 Encounter for screening for depression (ICD-10 - Z13.31) Anxiety and Depression Assessment: Patient reports experiencing anxiety and depression following abrupt discontinuation of Cymbalta by his neurologist in early November. Anxiety symptoms include racing heart, fidgeting, and difficulty holding objects, occurring approximately 5 out of 7 days. Depression symptoms are described as fluctuating, with some improvement noted. These symptoms are significantly impacting his daily functioning, including work, family interactions, and social activities. Patient also reports memory and concentration difficulties. Currently taking Zoloft (sertraline) for 2 weeks, starting with half a tablet and scheduled to increase to full dose tomorrow. Patient expresses concern about potential worsening of anxiety with dose increase. Also taking propranolol as needed for anxiety symptoms. Plan: - Continue Zoloft (sertraline) as prescribed, increasing to full tablet (50 mg) daily starting tomorrow per Chad - Implement TIP skills for managing intense emotions and racing thoughts: - Temperature change - Intense exercise - Paced breathing - Paired muscle relaxation Neurological Symptoms Assessment: Patient reports daily headaches, vertigo, dizziness, and balance issues. Vertigo symptoms occur approximately 2 hours after taking Zoloft and last for 4-5 hours. Patient also mentions neuropathy on the right side, possibly related to a TIA 10 years ago. History of 3 seizures, currently on Keppra (levetiracetam) for seizure management. Patient believes Keppra may be contributing to his symptoms (fatigue, headaches, dizziness, nausea). Ignacio would like to discontinue seizure medication due to the possibility that seizures were alcohol-induced, as patient reports 8.5 months of sobriety. Plan: - Refer patient for neurological re-evaluation to assess current medication regimen and explore alternative treatments for seizure prevention - Encourage patient to keep a symptom diary to track headaches, vertigo, and other neurological symptoms, noting any patterns or triggers - Discuss findings with patient's primary care provider and neurologist to coordinate care Lifestyle and Health Behaviors Assessment: Patient reports significant decrease in physical activity, from 80-90 miles of walking per week to approximately 20 miles. Recent weight fluctuations, with 35 pounds lost in spring and 20 pounds regained in the past 1.5 months. Reports poor dietary habits and lack of motivation to cook. Abstinent from alcohol for 8.5 months. Experiencing persistent fatigue, low energy, and low motivation. Plan: - Encourage gradual increase in physical activity, starting with small movements (e.g., wiggling fingers and toes) when feeling unmotivated - Discuss strategies for improving nutrition and meal preparation - Reinforce importance of maintaining sobriety and its positive impact on overall health - Explore behavioral activation techniques to address low motivation and energy 03/04/2025 Dietary counseling and surveillance (ICD-10 - Z71.3) Major Depressive Disorder Assessment: Patient reports onset of depressive symptoms following discontinuation of duloxetine a couple of months ago. Symptoms include frequent crying, low energy, poor concentration, irritability, and anhedonia, particularly affecting his relationship with his children. These symptoms are significantly impacting his work performance and daily functioning. Patient has a history of brief depressive episode following divorce, but current symptoms appear more severe and persistent. Recent life stressors include seizures and medical concerns. No current suicidal ideation, but patient expresses distress at having had intrusive thoughts. Plan: - Monitor for improvement in mood, energy, concentration, and irritability - Take medication as prescribed by Chad - Encourage maintaining social connections and support system involvement Anxiety Disorder Assessment: Patient has a long-standing history of anxiety since age 23-24, previously well-managed with medication and exercise for approximately 15 years. Recent exacerbation of anxiety symptoms following discontinuation of duloxetine. No current panic attacks reported, but patient experiences occasional episodes of disorientation and chills. Anxiety appears to be impacting work performance and social activities. Plan: - Take medication as prescribed by Chad - Monitor for improvement in anxiety symptoms, particularly in work and social settings - Encourage continuation of previously effective anxiety management strategies (e.g., exercise, healthy diet) 03/04/2025 Seizure disorder (ICD-10 - G40.909) 03/04/2025 Encounter for screening for cardiovascular disorders (ICD-10 - Z13.6) 03/04/2025 Encounter for screening for depression (ICD-10 - Z13.31) 03/07/2025 Encounter for screening for cardiovascular disorders (ICD-10 - Z13.6) 03/04/2025 Dietary counseling and surveillance (ICD-10 - Z71.3) 03/04/2025 Other Sertraline material was printed, Propranolol (Cardiovascular) material was printed Learning About Depression Screening material was printed 52-year-old patient with a 30-year history of anxiety, recent onset of depression following medication changes, and a history of seizures presenting with worsening mood symptoms and suicidal ideation. Major Depressive Disorder Assessment: Patient reports new onset of depressive symptoms following abrupt discontinuation of duloxetine in November. Symptoms include decreased concentration, difficulty sleeping, feelings of guilt and worthlessness, isolative behavior, and passive suicidal ideation. Depression appears to be severe and directly related to medication changes, particularly the cessation of duloxetine. Previous trial of duloxetine 30mg resulted in rapid mood improvement within 48 hours but was discontinued due to side effects including numbness and weakness in extremities and speech issues. Plan: - Start sertraline 25mg PO daily (half of a 50mg tablet) - Informed him that mood improvement may begin around 2 weeks, with full effect in 4-6 weeks - Advised him that side effects typically resolve within 2 weeks - Provided patient education on treatment plan and side effect information Generalized Anxiety Disorder Assessment: Patient reports long-standing anxiety for approximately 30 years with recent exacerbation, including a panic attack requiring emergency room visit last week. Anxiety symptoms have worsened since discontinuation of duloxetine. Plan: - Start propranolol for anxiety management - Educated him on propranolol being a heart medication with no addiction potential - Instructed him not to take if heart rate is below 60 beats per minute - Hydroxyzine can lower seizure threshold. Seizure Disorder Assessment: Patient reports two seizures in fall of previous year, possibly related to alcohol use and withdrawal. Currently on Keppra 1500mg ER nightly for seizure management. Patient expresses desire to discontinue Keppra due to side effects including headaches, fatigue, and vertigo. Plan: - Continue Keppra 1500mg ER nightly - Discussed potential future goal of discontinuing Keppra, noting need to choose antidepressant medication that doesn't lower seizure threshold History of Alcohol Use Assessment: Patient reports history of excessive alcohol consumption, which was suspected to be the cause of seizures. Patient has been abstinent from alcohol for approximately 8 months. Plan: - Encourage continued abstinence from alcohol Obstructive Sleep Apnea Assessment: Patient reports history of sleep apnea with CPAP machine ordered but not yet picked up. Plan: - Encourage patient to brain picker and use prescribed CPAP machine The note is transcribed using speech recognition software. It is a reflection of a visit with the patient. It might have some inaccuracy, including medication names and transcribing errors, though efforts have been made to correct them. 03/07/2025 Other Major Depressive Disorder Assessment: Patient reports improvement in depressive symptoms since starting sertraline, rating current depression at 3-4 out of 10. He denies suicidal ideation or self-harm thoughts. Some residual symptoms include irritability, difficulty concentrating, and changes in appetite. Patient is currently on day 3 of sertraline treatment at 25mg daily. Plan: - Continue sertraline 25mg PO daily for 2 weeks - Increase to 50mg PO daily after 2 weeks if tolerated - Follow up in 2 weeks to assess response and side effects - Refer for regular talk therapy sessions with Natalya for anxiety management Generalized Anxiety Disorder Assessment: Patient reports current anxiety level at 5 out of 10. Anxiety symptoms have increased since starting sertraline, which is a known initial side effect. Patient is using propranolol as needed for anxiety symptoms, particularly to manage tachycardia, with good effect. Plan: - Continue propranolol as needed for anxiety symptoms - Anticipate improvement in anxiety with continued sertraline treatment and dose increase - Consider discontinuing propranolol once therapeutic dose of sertraline is achieved - Continue therapy with Natalya. Sertraline Side Effects Assessment: Patient reports increased anxiety, vertigo, and dizziness since starting sertraline. These are known initial side effects of the medication. Patient is willing to continue treatment despite side effects, understanding they are likely to improve over time. Plan: - Monitor side effects over next 2 weeks - Educate patient that side effects are expected to improve within 2 weeks of treatment initiation - Encourage patient to continue medication as prescribed History of Seizures Assessment: Patient has a history of seizures, previously thought to be alcohol-related. Currently on Keppra for seizure management. There is consideration of tapering off keppra treatment, which may be contributing to seizure risk. Plan: - Advise follow-up with neurologist for Keppra maintenance. - Continue Keppra as prescribed by neurologist The note is transcribed using speech recognition software. It is a reflection of a visit with the patient. It might have some inaccuracy, including medication names and transcribing errors, though efforts have been made to correct them. 03/21/2025 Other Major Depressive Disorder Assessment: Ignacio's depression symptoms have shown improvement since the last visit, with PHQ-9 score decreasing from 20 to 8. Dozier Depression Inventory score has also improved from 32 to 20. However, he still reports fatigue, lack of motivation, and difficulty concentrating. The patient is currently transitioning from 25mg to 50mg of sertraline daily, with today being the last day of the 25mg dose. Plan: - Increase sertraline to 50mg PO daily starting tomorrow (03/22/2025) - Recommend taking sertraline at night to potentially mitigate side effects - Educate patient on expected improvement of side effects as treatment continues - Explain sertraline's mechanism of action (increasing serotonin availability in synapses) - Follow up to assess response to increased dose and side effect profile Generalized Anxiety Disorder Assessment: Ignacio's anxiety symptoms have improved, with DASHA-7 score decreasing from 21 to 14. He reports current anxiety level as 3/10. The patient uses propranolol as needed for acute anxiety episodes, which he finds effective but takes 30-45 minutes to work. A recent episode occurred during a golf game, causing significant distress. Plan: - Continue propranolol as needed for acute anxiety - Educate patient that sertraline, once at therapeutic dose, may reduce need for propranolol - Monitor anxiety symptoms and propranolol use at follow-up visits - continue therapy Insomnia Assessment: Ignacio reports poor sleep quality, getting 5-6 hours of broken sleep throughout the night. He has diagnosed sleep apnea but has not yet obtained his CPAP machine. The patient expresses reluctance to use additional medications. Plan: - Recommend [id number] melatonin 1-5mg at bedtime for sleep - Suggest magnesium supplementation at night to potentially improve REM sleep - Encourage patient to obtain and use prescribed CPAP machine - Educate that sertraline may improve sleep as anxiety and depression symptoms resolve Medication Side Effects Assessment: Ignacio reports side effects from sertraline including fatigue, dizziness, difficulty concentrating, and recent onset of nausea. Dizziness is typically worse 3-5 hours after morning dose. These side effects are impacting his daily functioning and quality of life. Plan: - Advise taking sertraline at night to potentially reduce daytime side effects - Recommend adequate hydration and slow position changes to manage dizziness - Educate patient on the transient nature of side effects and expected improvement with continued use - Monitor side effects at follow-up visits Chronic Headaches Assessment: Ignacio reports daily headaches for the past 6 months. He has an upcoming appointment for a neck injection as part of his treatment plan. Plan: - Patient to proceed with scheduled neck injection appointment on Tuesday - make an apt with neurologist. The note is transcribed using speech recognition software. It is a reflection of a visit with the patient. It might have some inaccuracy, including medication names and transcribing errors, though efforts have been made to correct them. Plan Of Treatment No Information Insurance Providers Payer Name Payer Address Payer Phone Subscriber Number Group Number Insured Name Patient Relationship to Insured Coverage Start Date Coverage End Date [facility] [address] [address] [place] [phone] [id number] Ignacio Gomez Self - patient is the insured Medical (General) History Medical History History ICD Code Past Psychiatric History: Anxiety Disord er abdominal aortic aneurysm: No atrial fibrillation: No chronic fatigue syndrome: No essential tremor: No hyperlipidemia: No hypertension: No Parkinson's disease: No restless leg syndrome: No stroke: No subdural hematoma: No type 1 diabetes mellitus: No vitamin B12 deficiency: No vitamin D deficiency: No seizures alcohol abuse sleep apnea
--- OUTSIDE RECORDS SUMMARY | 2025-06-07 07:26 | XMS_ITS | Clinical Summary ---
Author Organization 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 Role Phone Emi Julio NP Primary Care Provider [phone] Allergies Active Allergy Reactions Criticality Noted Date Comments Influenza Virus Vaccines Unknown Medications levothyroxine (SYNTHROID) 175 mcg tablet Take 1 tablet (175 mcg total) by mouth daily 2 Active ALPRAZolam (XANAX) 0.25 mg tablet Take 1 tablet (0.25 mg total) by mouth 3 (three) times a day as needed for anxiety [address] (CYMBALTA) 60 mg capsule Take 1 capsule (60 mg total) by mouth daily 4 Active levETIRAcetam (KEPPRA) 1,000 mg tablet Take 1 tablet (1,000 mg total) by mouth 2 (two) times a day 60 tablet 11 4 07/18/20 25 Active metoprolol tartrate (LOPRESSOR) 25 mg immediate release tablet Take 1 tablet (25 mg total) by mouth once for 1 dose 1 tablet 4 Active apixaban 5 mg (74 tabs) tablets,dose packIndication s:deep venous thrombosis Take 10 mg (2 tablets) by mouth 2 (two) times a day for 7 days, then take 5 mg (1 tablet) by mouth 2 (two) times a day thereafter. 74 tablet 5 Active apixaban 5 mg (74 tabs) tablets,dose packIndication s:deep venous thrombosis Take 10 mg (2 tablets) by mouth 2 (two) times a day for 7 days, then take 5 mg (1 tablet) by mouth 2 (two) times a day thereafter. 74 tablet 5 05/30/20 25 Discontinued Active Problems Problem Noted Date Diagnosed Date Seizure 07/17/2024 BMI 29.0-29.9,adult 01/30/2018 Assessment & Plan (01/30/2018 5:10 AM CDT): Weight is unchanged. Discussed the patient's BMI. The BMI is above average; BMI management plan is completed. General weight loss/lifestyle modification strategies discussed (elicit support from others; identify saboteurs; non-food rewards, etc). Great toe pain, left 01/24/2018 Assessment & Plan (01/30/2018 5:06 AM CDT): Check Uric acid level. Foot pain, left 01/24/2018 Assessment & Plan (01/30/2018 5:07 AM CDT): Obtain xray of left foot. Screening for malignant neoplasm of prostate Assessment & Plan (01/30/2018 5:04 AM CDT): Check PSA Acute gout of left foot 01/24/2018 Pulmonary embolism 11/19/2014 Overview (12/17/2016): Bilateral pulmonary embolism Deep vein thrombosis (DVT) 11/19/2014 Overview (12/17/2016): DVT (deep venous thrombosis) Hypothyroidism 01/26/2014 Overview (12/16/2016): Hypothyroidism Assessment & Plan (01/30/2018 5:05 AM CDT): Compliant with levothyroxine. Check TSH Hyperlipidemia 01/26/2014 Overview (12/16/2016): Hyperlipidemia Assessment & Plan (01/30/2018 5:06 AM CDT): Lipid abnormalities are fair control with medications. . Pharmacotherapy as ordered. Lipids will be reassessed today. Gastroesophageal reflux disease 01/26/2014 Overview (12/17/2016): GERD (gastroesophageal reflux disease) Anxiety 01/26/2014 Overview (12/17/2016): Anxiety Assessment & Plan (01/30/2018 5:09 AM CDT): Pt feels controlled. No longer on treatment. Encounters Date Type Department Care Team Description 05/30/2025 11:22 AM CDT - 05/30/2025 1:35 PM CDT Emergency [facility] Emergency Department [address] [place] [address] Acute deep vein thrombosis (DVT) of proximal vein of left lower extremity (HCC) (Primary Dx) Discharge Disposition: Discharge to home or self care 04/14/2025 2:51 AM CDT - 04/14/2025 5:21 AM CDT Emergency [facility] Emergency Department [address] [place] [address] Tawana Figueredo MD Renal insufficiency (Primary Dx); Dehydration; Paresthesia Discharge Disposition: Discharge to home or self care from Last 3 Months Immunizations Immunization Administration Dates Next Due Influenza, Split 06/12/2007 Surgical History Surgery Date Site/Laterality Comments OTHER SURGICAL HISTORY R femur fx: traction VASECTOMY 2006 Vasectomy Medical History Medical History Date Comments Hx Other Medical 1977 R femur fx Hx Other Medical Headache, migra ine Gastroesophageal reflux disease GERD Anxiety disorder Anxiety Hx Other Medical Thyroid disease -hypothyroidism Hyperlipidemia Hyperlipidemia Family History Medical History Relation Name Comments Heart attack Father 2 [place]; Other Father 2 complications a fter bladder romero; Cause of : complications after bladder romero Cancer Mother Cancer -unknown ; Coronary artery disease Mother Terrie nary artery disease, premature; Diabetes type I Mother Diabetes -Ty pe 1; Heart disease Mother Heart disease; Hypothyroidism Mother Hypothyroidis m; Other Mother quad bypass; Other Other 1 Family history of Cancer -bladder; Prostate cancer Other 1 Family histo ry of Cancer -prostate; Other Other 2 Family history of fx dics; Other Sister gallbladder; Relation Name Status Comments Father 1 (Age 73) Father 2 Mother Other 1 Other 2 Sister Social History Tobacco Use Types Packs/Day Years Used Date Smoking Tobacco: Never Smokeless Tobacco: Never Alcohol Use Standard Drinks/Week Comments Yes 0 (1 standard drink = 0.6 oz pur e alcohol) [facility] Utilities Answer Date Recorded In the past 12 months has th e electric, gas, oil, or water company threatened to shut off services in your home? No 07/18/2024 Social Connection and Isolation Panel Answer Date Recorded In a typical week, how many times do you talk on the phone with family, friends, or neighbors? More than three times a week 07/18/2024 How often do you get togethe r with friends or relatives? More than three times a week 07/18/2024 How often do you attend chur ch or protestant services? Never 07/18/2024 Do you belong to any clubs o r organizations such as jew groups, unions, fraternal or athletic groups, or school groups? No 07/18/2024 How often do you attend meet ings of the clubs or organizations you belong to? Never 07/18/2024 Are you , , di vorced, , never , or living with a partner? 07/18/2024 AUDIT-C Answer Date Recorded Q1: How often do you have a drink containing alcohol? 4 or more times a week 07/17/2024 Q2: How many drinks containi ng alcohol do you have on a typical day when you are drinking? 3 or 4 Q3: How often do you have si x or more drinks on one occasion? Weekly 07/17/2024 Overall Financial Resource Strain (CARDIA) Answe r Date Recorded How hard is it for you to pa y for the very basics like food, housing, medical care, and heating? Not hard at all 07/18/2024 Hunger Vital Sign Answer Date Recorded Within the past 12 months, y ou worried that your food would run out before you got the money to buy more. Never true 07/18/20 24 Within the past 12 months, t he food you bought just didn't last and you didn't have money to get more. Never true 07/18/2024 PRAPARE - Transportation Answer Date Re corded In the past 12 months, has l ack of transportation kept you from medical appointments or from getting medications? No 02/2024 In the past 12 months, has l ack of transportation kept you from meetings, work, or from getting things needed for daily living? No 07/18/2024 Housing Stability Vital Sign Answer Dylan e Recorded In the last 12 months, was t here a time when you were not able to pay the mortgage or rent on time? No 07/18/2024 In the past 12 months, how m any times have you moved where you were living? 0 07/18/2024 At any time in the past 12 m [facility], were you homeless or living in a senior care (including now)? No 07/18/2024 Personal Safety Answer Date Recorded Have you ever been in or are you currently in a harmful physical or emotional relationship or is someone making you feel afraid or unsafe? 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 Not on file Not on file Not on file Obstetrics History Last Filed Vital Signs Vital Sign Reading Time Taken Comments Blood Pressure 145/105 05/30/2025 1:34 PM CDT Pulse 88 05/30/2025 1:34 PM CDT Temperature 37 C (98.6 F) 05/30/2025 11:36 AM CDT Respiratory Rate 18 05/30/2025 1:34 PM CDT Oxygen Saturation 100% 05/30/2025 1:34 PM CDT Inhaled Oxygen Concentration - - Weight 108.9 kg (240 lb 1.3 oz) 025 12:12 AM CDT Height 190.5 cm (6' 3) 07/17/2024 4:59 PM 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 Body Mass Index 30.01 07/17/2024 4:59 PM [employer]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 Plan of Treatment Health Maintenance Due Date Last Done Comments Colon Cancer Screening-Colonoscopy 1970 Hepatitis C Screening 1970 Hepatitis B Screening 1988 Regular Well Visit/Exam 18-64 1988 Pneumococcal vaccine <65 (1 of 2 - PCV) 1989 DTaP/Tdap/Td Vaccine (4 - Tdap) 08/26/1993 08/25/1993, 07/29/1980, 05/04/1972, Additional history exists Depression Screening 01/24/2019 01/24/2018 Prostate Cancer Screening-PSA 01/25/2020 01/24/2018 Zoster Vaccine (1 of 2) 2020 Covid-19 Vaccine (3 - 2024-2 6 season) 2025 09/02/2021, 08/05/2021 Influenza Vaccine Discontinued 08/05/2021, 06/12/2007 Procedures Procedure Name Priority Date/Time Associated Diagnosis Comments EGFR STAT 05/30/2025 1:10 PM CDT BASIC METABOLIC PANEL STAT 05/30/2025 1:10 PM CDT CBC WITHOUT DIFFERENTIAL STAT 05/30/2025 1:10 PM CDT US VEIN DUPLEX LOWER EXTREMITY LEFT LIMITED ED 05/30/2025 12:19 PM CDT TROPONIN T HIGH-SENSITIVITY 2-HOUR Timed 04/14/2025 2:30 AM CDT XR CHEST PA LATERAL 2 VIEWS ED 04/14/2025 12:47 AM CDT ECG 12-LEAD STAT 04/14/2025 12:19 AM CDT EGFR STAT 04/14/2025 12:16 AM CDT DIFFERENTIAL AUTO STAT 04/14/2025 12: 16 AM CDT TROPONIN T HIGH-SENSITIVITY SERIES (BASELINE, 2HR, 4HR, 6HR) STAT 04/14/2025 12:16 AM CDT COMPREHENSIVE METABOLIC PANEL STAT 04/14/2025 12:16 AM CDT CBC WITH AUTO DIFFERENTIAL STAT 04/14/2025 12:16 AM CDT PSA SCREEN Routine 01/24/2018 12:52 PM CDT Screening for malignant neoplasm of prostate from Last 3 Months or Most Recently Relevant to Health Maintenance Results * eGFR (05/30/2025 1:10 PM CDT) Pathologist [facility] eGFR 72 >=60 mL/min/1. 73 m2 Comment: Interpretive Data Reference Interval Normal >/= 90 mL/min/1.73m2 Mildly decreased* 60 - 89 mL/min/1.73m2 Mildly to moderately decreased 45 - 59 mL/min/1.73m2 Moderately to severely decreased 30 - 44 mL/min/1.73m2 Severely decreased 15 - 29 mL/min/1.73m2 Kidney Failure < 15 mL/min/1.73m2 *Relative to young adult level Estimated glomerular filtration rate is determined by the 2020 CKD-EPI equation recommended by the National Kidney Foundation (A Unifying Approach to GFR Estimation: Recommendations of the NKF-ASK Task Force on Reassessing the Inclusion of Race in Diagnosing Kidney Disease, JASN 2020). The CKD-EPI equation should not be used for patients with unstable renal function and has not been validated in children and those over 70. Current interpretive data was last reviewed 2021. Blood 05/30/2025 1:10 PM CDT 05/30/2025 1:13 PM CDT us Kike Zazueta MD LAB BLOOD ORDERABLE S Final Result [facility] ([place]) 1 [facility] Department [place] [address] * (ABNORMAL) CBC without differential (05/30/2025 1:10 PM CDT) Pathologist [facility] WBC 8.69 3.80 - 9.90 K/cumm Hgb 12.3(L) 13.0 - 17.5 g/dL [facility] ([place]) Hct 35.3(L) 38.9 - 50.3 % [facility] ([place]) Plt 145(L) 150 - 400 K/cumm [facility] ([place]) MPV 9.9 9.1 - 12.3 fL [facility] ([place]) RBC 3.82(L) 4.30 - 5.80 M/cumm [facility] ([place]) MCV 92.4 81.3 - 96.4 fL [facility] MCH 32.2 27.1 - 33.3 pg [facility] ([place]) MCHC 34.8 32.3 - 35.7 g/dL [facility] ([place]) RDW CV 13.0 11.1 - 14.9 % [facility] ([place]) RDW SD 43.8 35.7 - 48.1 fL [facility] ([place]) NRBC abs 0.00 0.00 - 0.01 K/cumm [facility] ([place]) Blood 05/30/2025 1:10 PM CDT 05/30/2025 1:13 PM CDT us Kike Zazueta MD LAB BLOOD ORDERABLE S Final Result [facility] ([place]) 1 [facility] Department [place] [address] * (ABNORMAL) Basic metabolic panel (05/30/2025 1:10 PM CDT) Sodium 133(L) 135 - 145 mmol/L [facility] ([place]) Potassium, pl 4.0 3.3 - 4.9 mmol/L [facility] ([place]) Chloride 100 97 - 110 mmol/L [facility] CO2 21(L) 22 - 32 mmol/L [facility] ([place]) Anion gap 12 2 - 15 mmol/L [facility] ([place]) BUN 17 6 - 25 mg/dL [facility] ([place]) Creatinine 1.20 0.80 - 1.30 mg/dL [facility] Glucose 88 70 - 199 mg/dL [facility] ([place]) Comment: Interpretive Data Fasting glucose >/= 126 mg/dl is diagnostic for diabetes. Fasting is defined as no caloric intake for at least 8 hours. Fasting glucose between 100 mg/dl to 125 mg/dl is diagnostic of prediabetes. In a patient with classic symptoms of hyperglycemia or hyperglycemic crisis, a random glucose >/= 200 mg/dl is diagnostic for diabetes. In the absence of unequivocal hyperglycemia, results should be confirmed by repeat testing. The classification and Diagnosis of Diabetes Diabetes Care 2021; 46: S19-S40. Current interpretive data was last revised 2022. Calcium 9.5 8.5 - 10.3 mg/dL [facility] ([place]) Blood 05/30/2025 1:10 PM CDT 05/30/2025 1:13 PM CDT us Kike Zazueta MD LAB BLOOD ORDERABLE S Final Result [facility] [place] 1 [facility] Department [place] [address] * US VEIN DUPLEX LOWER EXTREMITY LEFT LIMITED, UNILATERAL (05/30/2025 12:19 PM CDT) Anatomical Region Laterality Modality Vascular Left Ultrasound 05/30/2025 12:2 9 PM CDT Narrative 05/30/2025 12:32 PM CDT EXAM DESCRIPTION: US VEIN DUPLEX LOWER EXTREMITY LEFT LIMITED, UNILATERAL REASON FOR STUDY: r/o DVT History of PE. Left lower extremity pain and swelling with no known injury. TECHNIQUE: Duplex scan using the B-mode, spectral Doppler, and color-flow Doppler of the deep venous system of the left lower extremity was performed. Images stored on PACS. COMPARISON: 06/13/2015 FINDINGS: There is a occlusive thrombus noted involving the left superficial femoral , popliteal vein, posterior tibial, and peroneal veins. There is nonocclusive thrombus noted in the left greater saphenous vein. The left common femoral vein is readily compressible with no intraluminal thrombus on moreno scale images. There is normal color and spectral Doppler signal, including augmentation. IMPRESSION: 1. Occlusive thrombus noted involving the left superficial femoral, popliteal, posterior tibial, and peroneal veins. 2. Nonocclusive thrombus noted in the left greater saphenous vein. Findings were discussed with Dr. Zazueta by Dr. Samson at 12:32 hours on 05/30/2025 . THIS IS AN ELECTRONICALLY VERIFIED FINAL REPORT 05/30/2025 12:32 PM - Electronically signed by Rochelle Samson D.O. PS: PS Report ID: [id number] Reading Location: [id number] Procedure Note Rochelle Samson, DO - 05/30/2025 EXAM DESCRIPTION: US VEIN DUPLEX LOWER EXTREMITY LEFT LIMITED,UNILATERAL REASON FOR STUDY: r/o DVT History of PE. Left lower extremity pain and swelling with no knowninjury. TECHNIQUE: Duplex scan using the B-mode, spectral Doppler, and color-flow Doppler of the deep venous system of the left lower extremity wasperformed. Images stored on PACS. COMPARISON: 06/13/2015 FINDINGS: There is a occlusive thrombus noted involving the left superficial femoral, popliteal vein, posterior tibial, and peroneal veins. There isnonocclusive thrombus noted in the left greater saphenous vein. The left common femoral vein is readily compressible with no intraluminal thrombus on moreno scale images. There is normal color and spectral Doppler signal, including augmentation. IMPRESSION: 1. Occlusive thrombus noted involving the left superficial femoral, popliteal, posterior tibial, and peroneal veins. 2. Nonocclusive thrombus noted in the left greater saphenous vein. Findings were discussed with Dr. Zazueta by Dr. Samson at 12:32 hourson 05/30/2025 . THIS IS AN ELECTRONICALLY VERIFIED FINAL REPORT 05/30/2025 12:32 PM - Electronically signed by Rochelle Samson D.O. PS: PS Report ID: [id number] Reading Location: [id number] us Kike Zazueta MD [facility] US PROCEDURES F inal Result * Troponin T high-sensitivity 2-hour (04/14/2025 2:30 AM CDT) Trop T hs 8 <=22 ng/L [facility] ([place]) Comment: Interpretive Data For further hscTnT resources including the diagnostic algorithm and an aid in interpretation, copy and paste this link: https://nrl.testcatalog.org/show/hsTrop Current Interpretive Data last revised 2020. Trop T hs delta 0 ng/L [facility] ([place]) Trop T hs interp Insignificant [facility] ([place]) Blood 04/14/2025 2:30 AM CDT 04/14/2025 2:42 AM CDT us Tawana Figueredo MD LAB BLOOD ORDERABLES Final Resul t [facility] ([place] 1 [facility] Department [place] [address] * XR Chest PA Lateral 2 Views (If patient hemodynamically stable and ambulatory) (04/14/2025 12:47 AMCDT) Anatomical Region Laterality Modality Body, Chest N/A Computed Radiogr aphy 04/14/2025 12:5 4 AM CDT Narrative 04/14/2025 12:56 AM CDT EXAM DESCRIPTION: XR CHEST PA LATERAL 2 VIEWS REASON FOR STUDY: chest pain Complains of burning sensation that goes from top of head to bottom of feet. Patient recently was changed on his seizure medications last Tuesday. Patient denies any seizure activity. Non-Smoker TECHNIQUE: Frontal and lateral views of the chest. COMPARISON: 05/28/2022 FINDINGS: LUNGS AND PLEURA: No focal airspace opacity, pleural effusion, or pneumothorax identified. HEART/MEDIASTINUM: Trachea midline. Cardiac silhouette normal in size. Mediastinal contours appear normal. BONES: Unremarkable. CHEST WALL: Unremarkable. UPPER ABDOMEN: Unremarkable. IMPRESSION: Unremarkable chest radiographs. THIS IS AN ELECTRONICALLY VERIFIED FINAL REPORT 04/14/2025 12:56 AM - Electronically signed by Kike Kumar M.D. AR: MINDY Report ID: [id number] Reading Location: [id number] Procedure Note Kike Kumar MD - 04/14/2025 EXAM DESCRIPTION: XR CHEST PA LATERAL 2 VIEWS REASON FOR STUDY: chest pain Complains of burning sensation that goes from top of head to bottom offeet. Patient recently was changed on his seizure medications last Tuesday.Patient denies any seizure activity. Non-Smoker TECHNIQUE: Frontal and lateral views of the chest. COMPARISON: 05/28/2022 FINDINGS: LUNGS AND PLEURA: No focal airspace opacity, pleural effusion, or pneumothorax identified. HEART/MEDIASTINUM: Trachea midline. Cardiac silhouette normal in size. Mediastinal contours appear normal. BONES: Unremarkable. CHEST WALL: Unremarkable. UPPER ABDOMEN: Unremarkable. IMPRESSION: Unremarkable chest radiographs. THIS IS AN ELECTRONICALLY VERIFIED FINAL REPORT 04/14/2025 12:56 AM - Electronically signed by Kike Kumar M.D. AR: MINDY Report ID: [id number] Reading Location: [place] [address] Tawana Figueredo MD IMG XR PROCEDURES Final Result * ECG 12 lead (04/14/2025 12:19 AM CDT) 04/14/2025 12:1 9 AM CDT Narrative [facility] - 04/15/2025 6:35 AM CDT Vent Rate: 94 bpm RR Interval: [address] Interval: 165 msec QRS Duration: 93 msec QT Interval: 347 msec QTC Interval: 399 msec P-R-T Assumption: 52 - -7 - 8 degrees IMPRESSION: SINUS RHYTHM WITH FREQUENT VENTRICULAR PREMATURE COMPLEXES LOW QRS VOLTAGE IN PRECORDIAL LEADS [QRS DEFLECTION < 1.0 mV IN CHEST LEADS] ABNORMAL RHYTHM ECG NO CHANGE FROM PREVIOUS TRACING NOTED Electronically Signed By: Jose Manuel Hawk MD Tawana Figueredo MD ECG ORDERABLES Final Result [facility] * Troponin T high-sensitivity series (baseline, 2hr, 4hr, 6hr) (04/14/2025 12:16 AM CDT) Trop T hs 8 <=22 ng/L [facility] ([place]) Comment: Interpretive Data For further hscTnT resources including the diagnostic algorithm and an aid in interpretation, copy and paste this link: https://nrl.testcatalog.org/show/hsTrop Current Interpretive Data last revised 2020. Blood 04/14/2025 12:1 6 AM CDT 04/14/2025 12:26 AM CDT us Tawana Figueredo MD LAB BLOOD ORDERABLES Final Resul t Performing Organization Address City/[facility]/ZIP Co de Phone Number [facility] ([place]) 1 [facility] [place] [address] * eGFR (04/14/2025 12:16 AM CDT) eGFR 68 >=60 mL/min/1. 73 m2 Comment: Interpretive Data Reference Interval Normal >/= 90 mL/min/1.73m2 Mildly decreased* 60 - 89 mL/min/1.73m2 Mildly to moderately decreased 45 - 59 mL/min/1.73m2 Moderately to severely decreased 30 - 44 mL/min/1.73m2 Severely decreased 15 - 29 mL/min/1.73m2 Kidney Failure < 15 mL/min/1.73m2 *Relative to young adult level Estimated glomerular filtration rate is determined by the 2020 CKD-EPI equation recommended by the National Kidney Foundation (A Unifying Approach to GFR Estimation: Recommendations of the NKF-ASK Task Force on Reassessing the Inclusion of Race in Diagnosing Kidney Disease, JASN 2020). The CKD-EPI equation should not be used for patients with unstable renal function and has not been validated in children and those over 70. Current interpretive data was last reviewed 2021. Blood 04/14/2025 12:1 6 AM CDT 04/14/2025 12:26 AM CDT us Tawana Figueredo MD LAB BLOOD ORDERABLES Final Resul t Performing Organization Address City/[facility]/ZIP Co de Phone Number [facility] ([place] 1 [facility] [place] [address] * (ABNORMAL) Differential, auto (04/14/2025 12:16 AM CDT) Neutrophil abs 7.02(H) 1.50 - 6.50 K/cumm Imm gran abs 0.05 0.00 - 0.10 K/cumm [facility] ([place]) Lymphocyte abs 2.85 0.80 - 3.30 K/cumm [facility] ([place]) Monocyte abs 0.70 0.20 - 0.80 K/cumm [facility] ([place]) Eosinophil abs 0.22 0.00 - 0.50 K/cumm [facility] ([place]) Basophil abs 0.11(H) 0.00 - 0.10 K/cumm [facility] ([place]) Neutrophil pct 64.1 % [facility] ([place]) Comment: Interpretive Data Percent cell count reference ranges are not reported, since discordance with absolute values may lead to misinterpretation of CBC data. Current Interpretive Data was last revised on 2017. Imm gran pct 0.5 % [facility] ([place]) Comment: Interpretive Data Percent cell count reference ranges are not reported, since discordance with absolute values may lead to misinterpretation of CBC data. Current Interpretive Data was last revised on 2017. Lymphocyte pct 26.0 % [facility] ([place]) Comment: Interpretive Data Percent cell count reference ranges are not reported, since discordance with absolute values may lead to misinterpretation of CBC data. Current Interpretive Data was last revised on 2017. Monocyte pct 6.4 % [facility] ([place]) Comment: Interpretive Data Percent cell count reference ranges are not reported, since discordance with absolute values may lead to misinterpretation of CBC data. Current Interpretive Data was last revised on 2017. Eosinophil pct 2.0 % [facility] ([place]) Comment: Interpretive Data Percent cell count reference ranges are not reported, since discordance with absolute values may lead to misinterpretation of CBC data. Current Interpretive Data was last revised on 2017. Basophil pct 1.0 % [facility] ([place]) Comment: Interpretive Data Percent cell count reference ranges are not reported, since discordance with absolute values may lead to misinterpretation of CBC data. Current Interpretive Data was last revised on 2017. Blood 04/14/2025 12:1 6 AM CDT 04/14/2025 12:26 AM CDT us Tawana Figueredo MD LAB BLOOD ORDERABLES Final Resul t [facility] ([place]) 1 [facility] [place] [address] * (ABNORMAL) CBC with auto differential (04/14/2025 12:16 AM CDT) WBC 10.95(H) 3.80 - 9.90 K/cumm Hgb 12.9(L) 13.0 - 17.5 g/dL [facility] ([place]) Hct 35.8(L) 38.9 - 50.3 % [facility] ([place]) Plt 132(L) 150 - 400 K/cumm [facility] ([place]) MPV 9.7 9.1 - 12.3 fL [facility] ([place]) RBC 3.98(L) 4.30 - 5.80 M/cumm [facility] ([place]) MCV 89.9 81.3 - 96.4 fL [facility] ([place]) MCH 32.4 27.1 - 33.3 pg [facility] ([place]) MCHC 36.0(H) 32.3 - 35.7 g/dL [facility] ([place]) RDW CV 12.2 11.1 - 14.9 % [facility] ([place]) RDW SD 40.4 35.7 - 48.1 fL [facility] ([facility]) NRBC abs 0.00 0.00 - 0.01 K/cumm [facility] Blood Venous blood specimen / Unknown 04/14/2025 12:16 AM CDT 04/14/2025 12:26 AM CDT us Tawana Figueredo MD LAB BLOOD ORDERABLES Final Resul t [facility] ([facility]) 1 [facility] [employer] [place] [address] * (ABNORMAL) Comprehensive metabolic panel (04/14/2025 12:16 AM CDT) Sodium 131(L) 135 - 145 mmol/L [facility] ([facility]) Potassium, pl 3.4 3.3 - 4.9 mmol/L [facility]) Chloride 96(L) 97 - 110 mmol/L [facility]) CO2 18(L) 22 - 32 mmol/L [facility] ([facility]) Anion gap 17(H) 2 - 15 mmol/L [facility] ([place]) BUN 19 6 - 25 mg/dL [facility] ([place]) Creatinine 1.26 0.80 - 1.30 mg/dL [facility]) Glucose 137 70 - 199 mg/dL [facility]) Comment: Interpretive Data Fasting glucose >/= 126 mg/dl is diagnostic for diabetes. Fasting is defined as no caloric intake for at least 8 hours. Fasting glucose between 100 mg/dl to 125 mg/dl is diagnostic of prediabetes. In a patient with classic symptoms of hyperglycemia or hyperglycemic crisis, a random glucose >/= 200 mg/dl is diagnostic for diabetes. In the absence of unequivocal hyperglycemia, results should be confirmed by repeat testing. The classification and Diagnosis of Diabetes Diabetes Care 2021; 46: S19-S40. Current interpretive data was last revised 2022. Calcium 9.6 8.5 - 10.3 mg/dL [facility]) Bilirubin, total 0.4 0.1 - 1.2 mg/dL [facility] ([place]) Protein, pl 7.6 6.5 - 8.5 g/dL [facility] ([place]) Albumin 4.5 3.5 - 5.0 g/dL [facility] ([place]) Alk phos 87 40 - 130 Units/L [facility]) ALT 19 7 - 55 Units/L [facility]) AST 38 10 - 50 Units/L [facility]) Blood 04/14/2025 12:1 6 AM CDT 04/14/2025 12:26 AM CDT us Tawana Figueredo MD LAB BLOOD ORDERABLES Final Resul t [facility] ([place]) 1 [facility] Department [place] [address] * PSA screen (01/24/2018 12:52 PM CDT) PSA-Total 0.78 0.10 - 4.00 ng/mL [facility] Blood specimen (specimen) 01/24/2018 12:52 PM CDT 01/24/2018 1:32 PM CDT Narrative [facility] - 01/24/2018 6:42 PM CDT Carla Rebollar NP LAB BLOOD ORDERABLES Final Result [facility] [id number] [place] [address] from Last 3 Months or Most Recently Relevant to Health Maintenance Insurance [facility] [employer] OPEN ACCESS [facility] CHOICE PLUS [facility] CHOICE PLUS Advance Directives For more information, please contact: [phone] * Full Code (Latest Code Status on File) Date Activated Date Inactivated Comments 07/17/2024 4:45 PM 07/18/2024 10:52 PM Care Teams Hazmat Truck Driver Relationship Specialty Start Date End Date Emi Julio NP PCP - General Family Medicine 02/07/24
[2025-06-07 07:33] VITALS: BP 147/89; PULSE 60; RESP 16; TEMP 36.4; O2SAT 100
--- NOTE | 2025-06-07 07:46 | ED.GENADULT ---
HPI - General Adult General Chief complaint: Extremity Problem,Nontraumatic Stated complaint: L leg pain (hx blood clot) Time Seen by Provider: 06/07/25 07:35 History of Present Illness HPI narrative: 54-year-old male with remote history of DVT in DVT diagnosed last week at an outside hospital presents to the emergency department for evaluation for worsening left leg pain. Patient reports about 2 weeks ago he was diagnosed with DVT at [facility] and was started on Eliquis. Patient reports last night he went for a walk and afterwards began having worsening left penny and calf pain. Patient states this morning he has so much pain that he was unable to ambulate on his morning walk. Related Data Home Medications ?Medication ?Instructions ?Recorded ?Confirmed ?Last Taken ?Type aspirin 325 mg tablet 325 mg PO DAILY 08/01/20 04/30/25 Unknown History Held on 06/18/21. Instructions: Patient Condition levetiracetam 1,000 mg tablet 500 mg PO DAILY 04/30/25 04/30/25 Unknown History (Keshay) Allergies Allergy/AdvReac Type Severity Reaction Status Date / Time No Known Allergies Allergy Verified 06/07/25 07:35 Review of Systems Review of Systems: All systems reviewed & are unremarkable except as noted in HPI and below PMFSH Past Medical History Medical History (Updated 06/07/25 @ 09:04 by John Funes MD) Frequent headaches Seizure disorder BMI 26.0-26.9,adult BMI 27.0-27.9,adult COVID-19 BMI 28.0-28.9,adult Neuropathy due to herpes zoster Screen for colon cancer Left elbow pain Anemia BMI 29.0-29.9,adult Hypothyroidism Anxiety and depression Poor sleep Visual blurriness Obstructive sleep apnea Irritation of left eye Palpitations Broken femur Pulmonary embolism Anxiety Cerebrovascular accident (CVA) Dizziness Elevated cholesterol Hypothyroidism, unspecified Sleep apnea in adult Tachycardia Surgical History Surgical History Hx of LASIK History of open reduction and internal fixation (ORIF) procedure Left femur at the age of 6 H/O vasectomy Family History Family History Mother Diabetes mellitus Acute myocardial infarction Thyroid cancer Cerebrovascular accident Father Acute myocardial infarction Bladder cancer Chronic emphysema syndrome Sibling COVID-19 Grandparent Cancer Grandparent Cancer Social History Social History Social History: The patient is and he has 2 children. One is 16 in the other 1 is 20. 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 He states that he drinks socially and is very sociable. He could not quantify how much she drinks and when he drinks. He stated that he use marijuana maybe 6 times in his whole life time. He denies using illicit drugs. He does not have a durable power assistant city attorney for healthcare. He is a full code. He isn't nonsmoker. 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; formerly heavy drinker Substance use: former Substance use type: marijuana Do You Feel Safe in your Home?: Yes Lack of Transportation: No Lack of Food: Never True Current Housing: Decline to Answer Concerned About Future Housing: Decline to Answer Difficulty Paying Gas/Electric Bills: Decline to Answer Difficulty Paying for Meds: Decline to Answer Currently Unemployed: Decline to Answer Education: Decline to Answer Difficulty w/ Childcare or Family Care: Decline to Answer Living arrangements: alone Occupation/Education: occupation 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 HEAD: normocephalic, atraumatic. EYES: PERRLA/EOMI, conjunctivae clear. NOSE: Normal no drainage EARS:TMS clear with good light reflex. THROAT: Pharynx clear, no exudate. NECK: Supple. No adenopathy, no masses. RESPIRATORY: Airway patent, respirations nonlabored. Clear to auscultation bilaterally, no rales, rhonchi, wheezing. CARDIOVASCULAR: Regular rate and rhythm without murmurs rubs or gallops. ABDOMINAL: Soft, nontender, nondistended, normal bowel sounds MUSCULOSKELETAL: Left calf tenderness to palpation with left calf pain larger than right calf. No left thigh tenderness NEURO: Alert. Cranial nerves II through XII intact. Good gait. Good coordination SKIN: Warm, dry. Normal Color Course Vital Signs Vital signs: Vital Signs Temperature 97.6 F 06/07/25 07:33 Pulse Rate 60 06/07/25 07:33 Respiratory Rate 16 06/07/25 07:33 Blood Pressure 147/89 H 06/07/25 07:33 Pulse Oximetry 100 06/07/25 07:33 Temperature 97.6 F 06/07/25 07:33 Pulse Rate 60 06/07/25 09:18 Respiratory Rate 18 06/07/25 09:18 Blood Pressure 125/91 H 06/07/25 09:18 Pulse Oximetry 100 06/07/25 09:18 Medical Decision Making MDM Narrative Medical decision making narrative: 54-year-old male presents to the emergency department for evaluation for worsening left calf pain. Patient currently afebrile no leukocytosis and hemoglobin of 13.1. Patient's INR 1.1. Patient has no acute abnormalities on his CMP and a normal total creatinine kinase. Ultrasound does show persistent DVT. Does have strong pulses distally. On re-evaluation patient states he does feel improved. Patient was updated results of the workup. Patient was comfortable plan for discharge and close follow-up. All questions were addressed. Patient was also educated on reasons to return to the emergency department. Differential Diagnosis Differential Diagnosis: Rhabdomyolysis, DVT, anxiety, ORLY, hypokalemia Vital Signs Vital Signs: Vital Signs Temperature 97.6 F 06/07/25 07:33 Pulse Rate 60 06/07/25 07:33 Respiratory Rate 16 06/07/25 07:33 Blood Pressure 147/89 H 06/07/25 07:33 Pulse Oximetry 100 06/07/25 07:33 Temperature 97.6 F 06/07/25 07:33 Pulse Rate 60 06/07/25 09:18 Respiratory Rate 18 06/07/25 09:18 Blood Pressure 125/91 H 06/07/25 09:18 Pulse Oximetry 100 06/07/25 09:18 Lab Data Lab results reviewed: Yes I reviewed the patient's lab results. 06/07/25 07:56 06/07/25 07:56 Labs: Lab Results 06/07/25 Range/Units 07:56 WBC 6.9 (4.5-10.0) K/mm3 RBC 4.13 L (4.6-6.20) M/mm3 Hgb 13.1 L (14.0-18.0) g/dL Hct 39.1 L (42.0-52.0) % MCV 94.7 (80-100) fl MCH 31.7 (26-34) pg MCHC 33.5 (32-36) g/dl RDW 13.1 (11.5-14.5) % Plt Count 161 (150-375) k/mm3 MPV 9.5 (7.4-10.4) fl Immature Gran % (Auto) 1.0 H (0-0.5) % Neut % (Auto) 69.1 (45.5-73.1) % Lymph % (Auto) 19.0 (18.3-44.2) % Warrick % (Auto) 6.5 (2.6-8.5) % Eos % (Auto) 3.0 (0-4.4) % Baso % (Auto) 1.4 H (0.2-1.2) % Lymph # (Auto) 1.31 (0.9-3.2) K/mm3 Warrick # (Auto) 0.5 (0.1-0.6) K/mm3 Eos # (Auto) 0.2 (0-0.3) K/mm3 Baso # (Auto) 0.1 (0.0-0.1) K/mm3 Abs Immat Gran (auto) 0.07 H (0.00-0.031) K/mm3 Absolute Neuts (auto) 4.8 (1.3-6.7) K/mm3 Absolute Nucleated RBC 0.000 (0.0-0.012) K/mm3 Nucleated RBC % 0.0 (0.0-0.2) % PT 14.0 (11.1-14.7) Seconds INR 1.1 APTT 36.4 (22.3-36.8) Seconds Sodium 134 L (137-145) mmol/L Potassium 4.6 (3.4-5.0) mmol/L Chloride 102 (98-107) mmol/L Carbon Dioxide 24 (22-30) mmol/L Anion Gap 8 (4-12) mmol/L BUN 25 H (9-20) mg/dL Creatinine 1.21 (0.7-1.3) mg/dL Estim Creat Clear Calc 84 ml/min Estimated GFR > 60 (59 - ) Glucose 108 (65-110) mg/dL Calcium 9.1 (8.4-10.2) mg/dL Total Bilirubin 0.5 (0.2-1.3) mg/dL AST 34 (17-59) U/L ALT 31 (6-50) U/L Alkaline Phosphatase 83 (38-126) U/L Total Creatine Kinase 156 (55-170) U/L Total Protein 8.4 H (6.3-8.2) g/dL Albumin 4.7 (3.5-5.1) g/dL Imaging Data Radiologist's impression: Impressions Venous Doppler Study 06/07/25 08:40 IMPRESSION: 1. Deep vein thrombosis involving the left femoral vein, popliteal vein, and peroneal and posterior tibial veins. 2. Superficial vein thrombosis involving the left greater saphenous vein. Discharge Plan Discharge Clinical Impression: DVT (deep venous thrombosis), Acute leg pain Patient Disposition: Home Condition: Stable Instructions: Antibiotic Form Additional Instructions: Acetaminophen for pain control. Avoid aspirin, avoid ibuprofen. It is not recommended to take NSAIDs while taking Eliquis as this can lead to gastric bleeding. Have close follow-up with your primary care physicians. If you have any worsening symptoms and please call or return to the emergency department. Patient Language: Lithuanian Prescriptions: No Action levothyroxine [Euthyrox] 150 mcg tablet 150 mcg PO DAILY Qty: 90 1RF duloxetine 30 mg capsule,delayed release(DR/EC) 60 mg PO DAILY Qty: 180 1RF topiramate [Topamax] 25 mg tablet 25 mg PO BID Qty: 60 0RF Rx Instructions: start by taking 1 tablet daily for 2 weeks then change to twice daily. levetiracetam [Keppra] 1,000 mg tablet 500 mg PO DAILY aspirin 325 mg Tablet 325 mg PO DAILY (DME) CPAP machine and supplies See Rx Instructions .Route .MEDSUPPLY Qty: 1 0RF Rx Instructions: CPAP machine, pressure settings 4-20. Nasal pillows mask, new tubing, new reservoir. Length of need 99+, DX: obstructive sleep apnea. alprazolam 0.25 mg tablet 0.25 mg PO TID PRN (Reason: anxiety) Qty: 60 2RF Follow-up/Referrals: Galletta,Emi D., PIPE ROLLER-C [Primary Care Provider, [facility]]
--- OUTSIDE RECORDS SUMMARY | 2025-06-07 07:50 | XMS_ITS | Clinical Summary ---
Author Organization [facility] Address [address] [address] Phone Care Team Providers Care Cranberry Sorter Name Role Phone Emi Julio NP Primary Care Provider [phone] Allergies Active Allergy Reactions Criticality Noted Date [...] CDT - 05/30/2025 1:35 PM CDT Emergency [facility] Emergency Department 1 [place] [address] Acute deep vein thrombosis (DVT) of proximal vein of left lower extremity (HCC) (Primary Dx) Discharge Disposition: Discharge to home or self care 04/14/2025 2:51 AM CDT - 04/14/2025 5:21 AM CDT Emergency [facility] Emergency Department 1 [place] [address] Tawana Figueredo MD Renal insufficiency (Primary Dx); [...] Relation Name Comments Heart attack Father 2 ND; Other Father 2 complications a fter bladder [...] drink = 0.6 oz pur e alcohol) [facility] Utilities Answer Date Recorded In the past [...] often do you attend chur ch or presybeterian services? Never 07/18/2024 Do you belong to any clubs o r organizations such as pentecostalism groups, unions, fraternal or athletic groups, or [...] any time in the past 12 m [facility], were you homeless or living in a longterm (including now)? No 07/18/2024 Personal Safety Answer Date Recorded Have you ever been in or are you currently in a harmful physical or emotional relationship or is someone making you feel afraid or unsafe? 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 73 m2 Comment: [...] Result [facility] 1 [facility] Department [place] [address] * (ABNORMAL) CBC without differential (05/30/2025 1:10 PM CDT) Pathologist [facility] WBC 8.69 3.80 - 9.90 K/cumm Hgb 12.3(L) 13.0 - 17.5 g/dL [facility] ([facility]) Hct 35.3(L) 38.9 - 50.3 % [facility] ([facility]) Plt 145(L) 150 - 400 K/cumm [facility] ([facility]) MPV 9.9 9.1 - 12.3 fL [facility]) RBC 3.82(L) 4.30 - 5.80 M/cumm [facility] ([facility]) MCV 92.4 81.3 - 96.4 fL [facility] MCH 32.2 27.1 - 33.3 pg [facility] ([facility]) MCHC 34.8 32.3 - 35.7 g/dL [facility] ([place]) RDW CV 13.0 11.1 - 14.9 % [facility] ([place]) RDW SD 43.8 35.7 - 48.1 fL [facility] ([place]) NRBC abs 0.00 0.00 - 0.01 K/cumm [facility] ([facility]) Blood 05/30/2025 1:10 PM CDT 05/30/2025 1:13 PM CDT us Kike Zazueta MD LAB BLOOD ORDERABLE S Final Result [facility] ([place]) 1 [facility] Department [place] [address] * (ABNORMAL) Basic metabolic panel (05/30/2025 1:10 PM CDT) Sodium 133(L) 135 - 145 mmol/L [facility] ([place]) Potassium, pl 4.0 3.3 - 4.9 mmol/L [facility] ([place]) Chloride 100 97 - 110 mmol/L [facility] CO2 21(L) 22 - 32 mmol/L [facility] ([place]) Anion gap 12 2 - 15 mmol/L [facility] ([place]) BUN 17 6 - 25 mg/dL [facility] ([place]) Creatinine 1.20 0.80 - 1.30 mg/dL [facility] Glucose 88 70 - 199 mg/dL [facility] ([place]) Comment: Interpretive Data Fasting [...] LAB BLOOD ORDERABLE S Final Result [facility] ([place]) 1 [facility] Department [place] [address] * US VEIN DUPLEX LOWER EXTREMITY LEFT [...] Rochelle Samson D.O. PS: PS Report ID: [id number] Reading Location: [id number] Procedure Note Rochelle Samson, DO - 05/30/2025 [...] Rochelle Samson D.O. PS: PS Report ID: [id number] Reading Location: [id number] us Kike Zazueta MD [facility] US PROCEDURES F inal Result * Troponin [...] Trop T hs interp Insignificant [facility] ([facility]) Blood 04/14/2025 2:30 AM CDT 04/14/2025 2:42 AM CDT us Tawana Figueredo MD LAB BLOOD ORDERABLES Final Resul t [facility] ([place]) 1 [facility] Department [place] [address] * XR Chest PA Lateral 2 Views [...] Kike Kumar M.D. AR: MINDY Report ID: [id number] Reading Location: [id number] Procedure Note Kike Kumar MD - 04/14/2025 [...] Kike Kumar M.D. AR: MINDY Report ID: [id number] Reading Location: [place] [address] Tawana Figueredo MD IMG XR PROCEDURES Final Result * ECG 12 lead (04/14/2025 12:19 AM CDT) 04/14/2025 12:1 9 AM CDT Narrative [facility] - 04/15/2025 6:35 AM CDT Vent Rate: 94 bpm RR Interval: 634 msec NH Interval: 165 msec QRS Duration: 93 msec QT Interval: 347 msec QTC Interval: 399 msec P-R-T Lincoln: 52 - -7 - 8 degrees IMPRESSION: SINUS RHYTHM WITH FREQUENT VENTRICULAR PREMATURE COMPLEXES LOW QRS VOLTAGE IN PRECORDIAL LEADS [QRS DEFLECTION < 1.0 mV IN CHEST LEADS] ABNORMAL RHYTHM ECG NO CHANGE FROM PREVIOUS TRACING NOTED Electronically Signed By: Jose Manuel Hawk MD Tawana Figueredo MD ECG ORDERABLES Final Result [facility] * Troponin T high-sensitivity series (baseline, 2hr, [...] ORDERABLES Final Resul t Performing Organization Address City/[facility] [address]/ZIP Co de Phone Number [facility] ([place]) 1 [facility] [place] [address] * eGFR (04/14/2025 12:16 AM CDT) eGFR [...] ORDERABLES Final Resul t Performing Organization Address City/[facility] [address]/ZIP Co de Phone Number [facility] ([place]) 1 [facility] [place] [address] * (ABNORMAL) Differential, auto (04/14/2025 12:16 AM [...] t [facility] ([place]) 1 [facility] [employer] [place] [address] * (ABNORMAL) CBC with auto differential (04/14/2025 [...] 32.4 27.1 - 33.3 pg [facility] ([place]) MCHC 36.0(H) 32.3 - 35.7 g/dL [facility] [...] t [facility] ([place]) 1 [facility] [employer] [place] [address] * (ABNORMAL) Comprehensive metabolic panel (04/14/2025 12:16 [...] MD LAB BLOOD ORDERABLES Final Resul t [facility] ([place]) 1 [facility] Department [place] [address] * PSA screen (01/24/2018 12:52 PM CDT) PSA-Total 0.78 0.10 - 4.00 ng/mL [facility] Blood specimen (specimen) 01/24/2018 12:52 PM CDT 01/24/2018 1:32 PM CDT Narrative [facility] - 01/24/2018 6:42 PM CDT Carla Rebollar NP LAB BLOOD ORDERABLES Final Result [facility] [id number] Department [place] [address] from Last 3 Months or Most Recently Relevant to Health Maintenance Insurance [facility] [employer] OPEN ACCESS [facility] CHOICE PLUS [facility] HMO/PPO Address: [place] [address] [facility] CHOICE PLUS [facility] H[facility]/PPO Address: [place] [address] Advance Directives For more information, please contact: [phone] * Full Code (Latest Code Status on File) Date Activated Date Inactivated Comments 07/17/2024 4:45 PM 07/18/2024 10:52 PM Care Teams Cranberry Sorter Relationship Specialty Start Date End Date Emi Julio NP PCP - General Family Medicine 02/07/24
--- OUTSIDE RECORDS SUMMARY | 2025-06-07 07:50 | XMS_ITS | Clinical Summary ---
Author Organization [facility] [employer] Address [address] [place] [address] Care Team Providers Care Senior Specialist Name Role Phone Harvey Jacome MD Primary Care Provider [phone] Source Comments [facility],non-owned Affiliates and Associated Physician Practices is amultiple site organization consisting of ambulatory clinics and hospital sitesin [place], [place], [place] and [place]. This disclosure is being madepursuant to the Care Everywhere program and may not contain all information available regarding this patient. 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
[2025-06-07 08:02] LABS: Hematocrit 39.1 % (42.0-52.0); Hemoglobin 13.1 g/dL (14.0-18.0); Immature Granulocyte Percent A 1.0 % (0-0.5); Lymphocytes Absolute Auto 1.31 K/mm3 (0.9-3.2); Mean Corpuscular HGB Conc 33.5 g/dl (32-36); Mean Corpuscular Hemoglobin 31.7 pg (26-34); Mean Corpuscular Volume 94.7 fl (80-100); Nucleated Red Blood Cells Absolute Auto 0.000 K/mm3 (0.0-0.012); Nucleated Red Blood Cells Perc 0.0 % (0.0-0.2); Platelet Count Result 161 k/mm3 (150-375); Red Blood Count 4.13 M/mm3 (4.6-6.20); White Blood Count 6.9 K/mm3 (4.5-10.0)
[2025-06-07] MEDS: HYDROcodone/acetaminophen (*CRX) 7.5-325 MG TABLET 1 TAB PO (08:06)
[2025-06-07] MEDS: ALPRAZolam (*CRX) 0.25 MG TABLET PO (08:06)
[2025-06-07 08:27] LABS: INR 1.1; Prothrombin Time 14.0 Seconds (11.1-14.7)
[2025-06-07 08:30] LABS: Partial Thromboplastin Time 36.4 Seconds (22.3-36.8)
[2025-06-07] MEDS: LACTATED RINGERS 1,000 ML 999 ML IV CONT (08:30)
[2025-06-07 08:54] LABS: Alanine Aminotransferase 31 U/L (6-50); Albumin Level 4.7 g/dL (3.5-5.1); Alkaline Phosphatase 83 U/L (38-126); Anion Gap 8 mmol/L (4-12); Aspartate Amino Transferase 34 U/L (17-59); Bilirubin,Total 0.5 mg/dL (0.2-1.3); Blood Urea Nitrogen 25 mg/dL (9-20); Calcium 9.1 mg/dL (8.4-10.2); Carbon Dioxide 24 mmol/L (22-30); Chloride 102 mmol/L (98-107); Creatine Kinase 156 U/L (55-170); Estimated CRCL calculation 84 ml/min; Estimated Glomerular Filt Rate > 60; Glucose 108 mg/dL (65-110); Potassium 4.6 mmol/L (3.4-5.0); Sodium 134 mmol/L (137-145); Total Protein 8.4 g/dL (6.3-8.2)
[2025-06-07 09:18] VITALS: BP 125/91; PULSE 60; RESP 18; O2SAT 100
== END 2025-06-07 09:26 | disposition home or self-care (01) ==
PROVIDERS: Emergency Provider Emergency Medicine; PCP Nurse Practitioner Family
DX: I82.412 Acute embolism and thrombosis of left femoral vein (principal); I82.432 Acute embolism and thrombosis of left popliteal vein; I82.452 Acute embolism and thrombosis of left peroneal vein; I82.442 Acute embolism and thrombosis of left tibial vein
CPT/HCPCS: 36415; 80053; 82550; 85025; 85610; 85730; 93971; 96360; 99284; A9270; J7120

== ENCOUNTER 2025-07-25 14:25 | Outpatient (CLI) | payer OTHER, SELFPAY ==
--- NOTE | ~2025-07-25 | MR_ITS ---
EXAMINATION: MR brain/brain stem wo con DATE: 07/25/2025 15:27 INDICATION: Headache TECHNIQUE: Magnetic resonance imaging (MRI) of the brain and brainstem was performed without intravenous contrast. COMPARISON: June 03, 2021 FINDINGS: No mass or mass effect present. No acute ischemic event or restricted diffusion. On susceptibility and gradient echo sequences, scattered punctate areas of signal void noted. See series 6, images 2856 and 58. Diffuse periventricular hyperintense T2-weighted white matter changes are somewhat advanced for patient age. Brainstem and cerebellum are otherwise unremarkable. Basilar flow voids patent at the skull base. Hippocampal regions are symmetric. Orbital para orbital paranasal calvarial structures within normal limits. IMPRESSION: 1. No acute ischemic event, mass or mass effect. 2. Somewhat advanced periventricular T2 weighted hyperintense white matter changes for patient age. A demyelinating process is not excluded. Consider correlation with contrast-enhanced sequences for additional evaluation. 3. Scattered punctate areas of signal void on susceptibility weighted images could be associated with punctate areas of calcification, micro-bleeds or amyloid disease. Reviewed, dictated and finalized at location A. ISH INSPECTOR IMPRESSION: 1. No acute ischemic event, mass or mass effect. 2. Somewhat advanced periventricular T2 weighted hyperintense white matter garvin ges for patient age. A demyelinating process is not excluded. Consider correlat ion with contrast-enhanced sequences for additional evaluation. 3. Scattered punctate areas of signal void on susceptibility weighted images co uld be associated with punctate areas of calcification, micro-bleeds or amyloid disease.
== END 2025-07-25 14:26 | disposition home or self-care (01) ==
LOC: GOSHIMG 14:26
PROVIDERS: PCP Nurse Practitioner Family; Visit Provider Nurse Practitioner Family
DX: R51.9 Headache, unspecified (principal); M54.12 Radiculopathy, cervical region; R42 Dizziness and giddiness; H93.13 Tinnitus, bilateral; R93.0 Abnormal findings on diagnostic imaging of skull and head, not elsewhere classified
CPT/HCPCS: 70551